=== PATIENT | male | born 1955 | race Caucasian/White ===

== ENCOUNTER 2022-05-27 09:39 | Outpatient (CLI) | payer MEDICARE, MEDICAID, SELFPAY | END 2022-05-27 09:40 | disposition home or self-care (01) | LOC: CHSIMG 09:46 | PROVIDERS: PCP Family Medicine; Visit Provider Family Medicine | DX: R09.89 Other specified symptoms and signs involving the circulatory and respiratory systems (principal); Z53.8 Procedure and treatment not carried out for other reasons | CPT/HCPCS: 99199 ==

== ENCOUNTER 2022-06-06 12:32 | Outpatient (CLI) | payer MEDICARE, SELFPAY ==
--- NOTE | ~2022-06-06 | US_ITS ---
EXAMINATION: US arterial ankle brachial ind DATE: 06/06/2022 13:26 INDICATION: Absent pedal pulses TECHNIQUE: Segmental pressures and plethysmographic and Doppler waveforms of the brachial and lower e xtremity arteries were obtained. COMPARISON: None. FINDINGS: Right and left brachial artery pressures of 155 mm Hg and 146 mm Hg, respectively, are concordant (no rmal difference <= 30 mmHg). The right ankle-brachial index (MANUELA) is 1.19 (normal >= 0.9-1.0). The right great toe-brachial index (TBI) is 0.68 (normal >= 0.65). Arterial Doppler waveforms are triphasic at the right common femoral artery and biphasic throughout the more distal arteries and right lower limb with brisk systolic upst rokes throughout. The left MANUELA is 1.21. The left TBI is 0.57. Arterial Doppler waveforms are triphasic at the left comm on femoral, superficial femoral and popliteal arteries, biphasic at the left posterior tibial artery and monophasic at the left dorsalis pedis artery with brisk systolic upstrokes throughout. IMPRESSION: 1. 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 2. No significant arterial occlusive disease to the right lower limb with normal right MANUELA and TBI. Reviewed, dictated and finalized at location B. IMPRESSION: 1. 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 2. No significant arterial occlusive disease to the right lower limb with otf l right MANUELA and TBI.
== END 2022-06-06 12:33 | disposition home or self-care (01) ==
LOC: CHSIMG 12:34
PROVIDERS: PCP Family Medicine; Visit Provider Family Medicine
DX: R09.89 Other specified symptoms and signs involving the circulatory and respiratory systems (principal)
CPT/HCPCS: 93922

== ENCOUNTER 2022-06-15 07:29 | Outpatient (CLI) | payer MEDICARE, MEDICAID, SELFPAY ==
--- NOTE | ~2022-06-15 | MR_ITS ---
EXAMINATION: MR lumbar spine wo con DATE: 06/15/2022 08:19 INDICATION: Low back pain. Spinal stenosis. TECHNIQUE: Magnetic resonance imaging (MRI) of the lumbar spine was performed without intravenous con trast. Sequences included sagittal T2-weighted FSE, sagittal T2-weighted FS FSE, sagittal T1-weighted FSE, and axial T2-weighted FSE. COMPARISON: None FINDINGS: There is 21 degrees dextroscoliosis of lumbar spine. There is mild chronic anterior wedging of T11-L1 vertebral bodies. There are Schmorl's nodes at multiple levels. There is heterogeneous fat ty replacement of the bone marrow. There is a sclerotic lesion in T12, likely a benign bone island. T here is severely decreased disc height at L1-L2, moderately decreased disc height at L2-L3 and L3-L4, and severely decreased disc height at L4-L5 with endplate remodeling. The distal spinal cord signal intensity is normal. The conus medullaris is at T12-L1. The following disc levels are specifically di scussed: L1-L2: The disc is bulging and has an annular fissure. There is mild bilateral facet joint osteoarthr itis. There is mild right and moderate left neural foraminal stenosis. There is mild central canal st enosis. L2-L3: The disc is bulging. There is moderate bilateral facet joint osteoarthritis. There is mild rig ht and moderate left neural foraminal stenosis. There is mild central canal stenosis. L3-L4: The disc is bulging and has an annular fissure. There is severe bilateral facet joint osteoart hritis. There is moderate bilateral neural foraminal stenosis. There is mild central canal stenosis. L4-L5: The disc is bulging and has an annular fissure. There is severe bilateral facet joint osteoart hritis. There is moderate right and mild left neural foraminal stenosis. There is mild central canal stenosis. L5-S1: The disc is bulging. There is severe bilateral facet joint osteoarthritis. There is mild bilat eral neural foraminal stenosis. There is no central canal stenosis. IMPRESSION: 1. Severe lumbar spondylosis. 2. Lumbar dextroscoliosis. Reviewed, dictated and finalized at location A.
== END 2022-06-15 07:30 | disposition home or self-care (01) ==
PROVIDERS: PCP Family Medicine; Visit Provider Family Medicine
DX: M48.00 Spinal stenosis, site unspecified (principal)
CPT/HCPCS: 72148

== ENCOUNTER 2022-08-21 11:10 | Outpatient (CLI) | payer MEDICARE, MEDICAID, SELFPAY ==
[2022-08-21 12:17] LABS: Prostate Specific Antigen < 0.1 ng/mL (< OR = 4.0)
== END 2022-08-21 11:11 | disposition home or self-care (01) ==
LOC: CHSLAB 11:14
PROVIDERS: PCP Family Medicine; Visit Provider Radiology Radiation Oncology
DX: C61 Malignant neoplasm of prostate (principal)
CPT/HCPCS: 36415; 84153; 87077; 87086; 87088; 87186

== ENCOUNTER 2022-09-30 14:14 | Emergency (ER) | payer MEDICARE, MEDICAID, SELFPAY ==
--- NOTE | ~2022-09-30 | CT_ITS ---
EXAMINATION: CT abdomen pelvis wo con DATE: 09/30/2022 15:34 INDICATION: Abdominal pain. Nausea. TECHNIQUE: Computed tomography (CT) of the abdomen and pelvis was performed without intravenous contr ast. Automated exposure control and iterative reconstruction technique were employed. The dose-length product was 861.38 mGy-cm. COMPARISON: None. FINDINGS: The visualized portions of the lung bases demonstrate mild atelectasis. No pleural effusion . The heart size is normal. There are coronary artery calcifications. No pericardial effusion. The li seamus is normal. There is a gallstone in the gallbladder, which is distended, likely secondary to fasti ng. The spleen, pancreas, adrenal glands, and kidneys are normal. There is no urolithiasis. There is an umbilical hernia containing fat. The bladder is distended. There are scattered diverticula in the colon. There is wall thickening of sigmoid colon with surrounding fat stranding. There are foci of fr ee intraperitoneal gas adjacent to the sigmoid colon and in the upper abdomen. There is a 17 x 1.4 x 1.6 cm perisigmoid abscess. The appendix is normal. There are no pathologically enlarged lymph nodes. There are bilateral total hip arthroplasties. There are old healed fractures of the left acetabulum and left superior and inferior pubic rami. There is lumbar dextroscoliosis and severe spondylosis. Th ere is a benign bone island in T12 vertebral body. There is moderate thoracic spondylosis. IMPRESSION: 1. Sigmoid diverticulitis with microperforation and small abscess. Reviewed, dictated and finalized at location A. RIDER
[2022-09-30 14:45] VITALS: BP 165/76; PULSE 82; RESP 16; TEMP 36.3; O2SAT 97
--- NOTE | 2022-09-30 15:21 | ED.GENADULT ---
HPI - General Adult General Chief complaint: Abdominal Pain Stated complaint: possible intestinal blockage, prostate cancer Time Seen by Provider: 09/30/22 14:48 History of Present Illness HPI narrative: The patient is a 67-year-old male with history of prostate cancer, status post radiation therapy, most recently August 01, 2022. He is currently on Lupron therapy. His other medication is Flomax. He has had multiple orthopedic procedures. In the distant past, he had a urethral rupture from trauma many years ago with an accompanying pelvic fracture. He has not had a small bowel obstruction. Last normal bowel movement was 3 days ago, Friday. the patient now presents with an episode of infraumbilical abdominal discomfort since Friday, 3 days ago, worsened in the evening on Friday evening, associated with chills and nausea and 2 episodes of emesis today, once yesterday. He did take Tylenol 1000 mg for his abdominal pain at 11:00 a.m. today. He did take Kaopectate 2 days ago and took 2 tablets of an [id number] stool softener as well around that time. This resulted in a bowel movement 2 days ago, Friday, which is the last time he had stool output. He has self treated himself with Jell-O and pudding and clear liquids. His pain is continued and so has the nausea and vomiting sensation. He comes here for further evaluation. Denies any fevers or diaphoresis or chest pain. No URI or UTI symptoms. Related Data Home Medications Medication Instructions Recorded Confirmed leuprolide (3 month) 22.5 mg (3 22.5 mg subcut [id number] 09/30/22 09/30/22 month) subcutaneous syringe tamsulosin 0.4 mg capsule 0.4 mg PO HS 09/30/22 09/30/22 Allergies Allergy/AdvReac Type Severity Reaction Status Date / Time No Known Allergies Allergy Verified 09/30/22 19:44 Review of Systems Review of Systems: All systems reviewed & are unremarkable except as noted in HPI and below Constitutional: Constitutional: Reports no additional constitutional complaints, Denies anorexia, Denies body ache(s), Reports chills, Denies excessive sweating, Denies fatigue, Denies fever(s), Denies frequent falls, Denies headache(s), Denies malaise and Denies poor appetite Eyes: Eyes: Reports no additional eye complaints, Denies blurry vision, Denies change in vision, Denies irritation, Denies itchy eyes and Denies photophobia ENT: Reports system reviewed and no additional complaints, except as documented, Reports Normal hearing present, Denies change in voice, Denies dysphagia, Denies vertigo, Denies dizziness, Denies ear discharge, Denies headache(s), Denies hearing loss, Denies hoarseness, Denies nasal congestion, Denies neck pain, Denies sinus pressure, Denies sore throat and Denies throat swelling Cardiovascular: Cardiovascular: Reports no additional cardiovascular complaints, Denies chest pain, Denies syncope, Denies rapid heart rate, Denies irregular heart rhythm, Denies leg edema, Denies dyspnea and Denies slow heart rate Respiratory: Respiratory: Reports no additional respiratory complaints, Denies cough, Denies dyspnea, Denies stridor and Denies wheezing Gastrointestinal: Gastrointestinal: Reports no additional gastrointestinal complaints, Reports abdominal pain, Denies melena, Denies hematochezia, Denies dysphagia, Denies diarrhea, Reports nausea and Reports vomiting Genitourinary: Genitourinary: Denies hematuria, Denies oliguria, Denies dysuria, Denies flank pain, Denies urinary frequency and Denies urinary urgency Musculoskeletal: Musculoskeletal: Reports no additional musculoskeletal complaints, Denies abnormal gait, Denies back pain, Denies myalgias, Denies arthralgias, Denies joint swelling, Denies limited range of motion, Denies muscle cramps, Denies muscle weakness, Denies neck pain and Denies numbness Integumentary/Breasts: Skin/Breast: Reports system reviewed and no additional complaints, except as docu, Denies breast pain, Denies change in pigmentation,
[2022-09-30] MEDS: SODIUM CHLORIDE 0.9% IV 1,000 ML 999 ML IV CONT ×2 (15:22)
[2022-09-30] MEDS: ONDANSETRON INJ 4 MG/2 ML VIAL IV PUSH (15:23)
[2022-09-30] MEDS: METOCLOPRAMIDE HCL INJ 10 MG/2 ML VIAL IV PUSH (15:23)
[2022-09-30] MEDS: MORPHINE SULFATE (*CRX) 4 MG/ML INJ IV PUSH (15:24)
[2022-09-30 15:28] LABS: Basophils Absolute Auto 0.01 K/mm3 (0.00-0.10); Basophils Percent Auto 0.1 % (0.0-1.0); Hematocrit 35.4 % (37.0-46.0); Immature Granulocyte Absolute 0.02 K/mm3 (0.00-0.00); Immature Granulocyte Percent A 0.3 % (0.0-0.0); Lymphocytes Absolute Auto 0.22 K/mm3 (1.10-4.50); Mean Corpuscular HGB Conc 33.9 g/dL (32.0-36.0); Mean Corpuscular Hemoglobin 34.3 pg (27.0-31.0); Mean Corpuscular Volume 101.1 fL (78.0-102.0); Mean Platelet Volume 8.7 fl (8.7-11.0); Monocytes Absolute Auto 0.35 K/mm3 (0.10-0.90); Monocytes Percent Auto 4.8 % (2.0-11.0); Neutrophils Absolute Auto 6.7 K/mm3 (1.7-7.2); Neutrophils Percent Auto 91.8 % (50.0-70.0); Platelet Count Result 170 K/mm3 (150-420); Red Cell Distribution Width 13.1 % (11.6-14.4); White Blood Count 7.3 K/mm3 (4.8-10.8)
[2022-09-30 15:44] LABS: Alanine Aminotransferase 14 U/L (16-63); Albumin Level 3.3 g/dL (3.4-5.0); Alkaline Phosphatase 47 U/L (46-116); Amylase 24 U/L (25-115); Anion Gap 10 mmol/L (8-16); Aspartate Amino Transferase < 10 U/L (15-37); Blood Urea Nitrogen 10 mg/dL (7-18); Calcium 8.8 mg/dL (8.5-10.1); Carbon Dioxide 25 mmol/L (21-32); Chloride 101 mmol/L (98-108); Estimated CRCL calculation 87 ml/min; Estimated Glomerular Filt Rate > 60; Glucose 129 mg/dL (70-99); Lipase 12 U/L (16-77); Magnesium 1.7 mg/dL (1.8-2.4); Osmolality Calculated 283 mOsm/kg (285-295); Potassium 3.4 mmol/L (3.5-5.1); Sodium 136 mmol/L (136-145); Total Protein 7.1 g/dL (6.4-8.2)
[2022-09-30 15:46] LABS: Lactic Acid Reflex 0.9 mmol/L (0.4-2.0)
--- NOTE | 2022-09-30 16:50 | PC.NURSE ---
DELAY IN ABT ADMINISTRATION, AWAITING BLOOD CULTURES TO BE OBTAINED.
[2022-09-30] MEDS: metroNIDAZOLE 500 MG/ISO 100ML 500 MG/100 ML BAG 100 MG IVPB (17:12)
--- NOTE | 2022-09-30 17:13 | PC.NURSE ---
PT IS AWAITING ROOM ASSIGNMENT FROM [place] AT THIS TIME. WILL CONTINUE TO MONITOR. SON AT BEDSIDE. PT AND SON UPDATED ON STATUS. URINAL PROVIDED REQUESTED.
--- NOTE | 2022-09-30 17:28 | PC.NURSE ---
PT TO BE ADMITTED TO ROOM 316-2 AT [facility], ATTEMPTED TO CALL REPORT TO CHIQUIS WHITE, SHE IS UNAVAILABLE AT THIS TIME AND IS TO RETURN CALL. WILL CONTINUE TO MONITOR.
[2022-09-30 17:29] LABS: SARS-CoV-2 RNA PCR Negative (Negative)
[2022-09-30 17:40] VITALS: BP 147/84; PULSE 80; RESP 18; TEMP 36.8; O2SAT 98
[2022-09-30 18:10] LABS: Add Urine Microscopic? YES; Appearance Urine Clear (Clear); Bilirubin Urine Negative (Negative); Blood Urine 1+ (Negative); Color Urine Light Yellow (Yellow); Glucose Urine UA Negative (Negative); Ketones Urine Negative (Negative); Leukocyte Esterase Ur 3+ LEU/UL (Negative); Nitrate Urine Positive (Negative); Protein Urine Negative (Negative); pH Urine 6.5 (5.0-8.0)
[2022-09-30] MEDS: SODIUM CHLORIDE 0.9% IV 1,000 ML 150 ML IV CONT (18:26)
[2022-09-30 18:50] LABS: Bacteria Urine 4+ /hpf; Squamous Epithelial Cell Urine None seen /hpf (Few); WBC Urine >75 /hpf (0-3)
--- NOTE | 2022-10-05 10:34 | PC.NURSE ---
pt final urine culture obtained. pt was transferred to [facility]. called to notify. spoke with betsy simon. states pt discharged on 10.04.22. asked if pt discharged with antibiotic. states will call back.
--- NOTE | 2022-10-05 10:39 | PC.NURSE ---
pt called , states was discharged with rx for amoxicillin. will check with erp to make sure amoxil is appropriate.
--- NOTE | 2022-10-05 10:58 | PC.NURSE ---
pt called dr trimble concerned about urine results. call from dr trimble, he is aware of culture results and abt is sufficient that was ordered at discharge.
--- NOTE | 2022-10-05 11:00 | PC.NURSE ---
pt notified to continue current abt. voiced understanding
--- NOTE | 2022-10-06 13:50 | PC.NURSE ---
final blood cultures x2 reviewed. no growth after 5 days . no change in pt plan of care
== END 2022-09-30 18:38 | disposition short-term general hospital (02) ==
PROVIDERS: Emergency Provider Emergency Medicine; PCP Family Medicine
DX: K57.20 Diverticulitis of large intestine with perforation and abscess without bleeding (principal); Z85.46 Personal history of malignant neoplasm of prostate; Z20.822 Contact with and (suspected) exposure to COVID-19
CPT/HCPCS: 36415; 74176; 80053; 81001; 82150; 83605; 83690; 83735; 85025; 87040; 87077; 87086; 87088; 87186; 96361; 96365; 96375; 99285; J1956; J2270; J2405; J2765; J7030; U0003; U0005

== ENCOUNTER 2022-09-30 20:12 | Inpatient (IN) | payer MEDICARE, MEDICAID, SELFPAY ==
--- NOTE | 2022-09-30 19:22 | PC.NURSE ---
Patient arrived on 3 Med-Surg on 19:10 on 09/30/2022
[2022-09-30 20:07] VITALS: BMI 27.3
--- NOTE | 2022-09-30 20:12 | PM.IMHP ---
H&P: HPI History of Present Illness Date/Time: 09/30/22 20:12 Chief Complaint: Abdominal pain Narrative: This is a 67-year-old male patient has a history of prostate cancer. The patient is on Lupron every 3 months. He is also on Flomax otherwise he has no previous history other than a urethral rupture from trauma many years ago. He did have some urinary retention which is now resolved. His last bowel movement was approximately 3 days ago on Friday. The patient stated that he is been having abdominal pain with nausea and 2 episodes of emesis today and once yesterday. The patient did take some Tylenol for the discomfort today. He also took Kaopectate. The patient has not had a bowel movement in 2 days. The patient has been eating and drinking very little he has been eating Jell-O 1 putting and clear liquids. The patient went to [facility] to be evaluated. His H&H is 12.0 in 35.4. The patient is positive for urinary tract infection. He is negative for COVID. Abdominal pelvis CT was read as sigmoid diverticulitis with microperforation and small abscess. Surgery has been consulted. The patient was given Levaquin and IV fluids in the emergency room at [place]. Perisigmoid abscess measuring 1.7 x 1.4 x 1.6. The patient is being admitted to inpatient status on the date of service of 09/30/2022. Review of Systems Review of Systems: See HPI All systems reviewed & are unremarkable except as noted in HPI and below Constitutional: Constitutional: Reports as per HPI and Reports no additional constitutional complaints Eyes: Eyes: Reports as per HPI and Reports no additional eye complaints ENT: Reports system reviewed and no additional complaints, except as documented and Reports Normal hearing present Cardiovascular: Cardiovascular: Reports no additional cardiovascular complaints Respiratory: Respiratory: Reports no additional respiratory complaints and Reports no additional respiratory complaints Gastrointestinal: Gastrointestinal: Reports as per HPI and Reports no additional gastrointestinal complaints Musculoskeletal: Musculoskeletal: Reports no additional musculoskeletal complaints Integumentary/Breasts: Skin/Breast: Reports system reviewed and no additional complaints, except as docu and Reports as per HPI Neurologic: Reports system reviewed and no additional complaints, except as documented, Reports as per HPI and Reports Normal hearing present Psychiatric: Psychiatric: Reports no additional psychiatric complaints and Reports as per HPI Endocrine: Endocrine: Reports no additional endocrine complaints Hematologic/Lymphatic: Hematologic/Lymphatic: Reports no additional hematologic/lymphatic complaints Allergic/Immunologic: Allergic/Immunologic: Reports no additional allergic/immunologic complaints [facility] Past Medical History Medical History (Updated 09/30/22 @ 20:24 by Michaela Lindsay NP) BPH (benign prostatic hyperplasia) Diverticulosis Fractured pelvis Inguinal hernia Osteoarthritis Prostate cancer Scoliosis Urethral stricture Surgical History Surgical History (Updated 09/30/22 @ 20:24 by Michaela Lindsay NP) H/O colonoscopy H/O prostate biopsy H/O: vasectomy History of hip replacement Bilateral S/P cystourethroscopy with dilation of urethral stricture Social History Social History (Updated 09/30/22 @ 20:25 by Michaela Lindsay NP) Social History: He is and has 3 children. He lives alone. 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 He does smoke some marijuana now.. He does not smoke cigarettes. Code status full code Smoking status: Never smoker Meds Home Medications and Allergies Home Medications Medication Instructions Recorded Confirmed Type leuprolide (3 month) 22.5 mg (3 22.5 mg subcut [id number] 09/30/22 09/30/22 History month) subcutaneous syringe tamsulosin 0.4 mg capsule 0.4 mg PO HS 09/30/22 09/30/22 History Allergies Allergy/AdvReac Type Severit
[2022-09-30] MEDS: DEXTROSE 5%/0.45% SOD CHL 1,000 ML 100 ML IV CONT (21:13)
[2022-09-30] MEDS: TAMSULOSIN HCL 0.4 MG CAPSULE PO (21:14)
[2022-09-30] MEDS: HYDROmorphone HCL INJ (*CRX) 1 MG/ML SYR IV PUSH (21:19)
[2022-09-30] MEDS: PIPERACILLIN/TAZOBACTAM SOD 4.5 GM in SODIUM CHLORIDE 0.9% IV 100 ML 200 ML IVPB (22:14)
[2022-10-01] VITALS (7 sets, daily range): BP systolic 105–136; BP diastolic 55–78; PULSE 73–87; RESP 14–18; TEMP 36.2–37.2; O2SAT 95–99
[2022-10-01 01:07] LABS: Appearance Urine Slightly Cloudy (Clear); Bilirubin Urine 1+ (Negative); Blood Urine 1+ (Negative); Color Urine Yellow (Yellow); Glucose Urine UA Negative (Negative); Ketones Urine Trace mg/dL (Negative); Leukocyte Esterase Ur 1+ LEU/UL (NEGATIVE); Nitrate Urine Positive (Negative); Protein Urine 2+ mg/dL (Negative); Specific Grav Ur >= 1.030 (1.001-1.035)
[2022-10-01 01:26] LABS: Bacteria Urine 1+ /hpf; Mucus Urine Moderate /lpf; RBC Urine 51-75 /hpf (0-2); WBC Urine >75 /hpf (0-3)
[2022-10-01] MEDS: PIPERACILLIN/TAZOBACTAM SOD 4.5 GM in SODIUM CHLORIDE 0.9% IV 100 ML 200 ML IVPB ×2 (02:03→08:41)
[2022-10-01 02:21] LABS: Add Urine Microscopic? YES
[2022-10-01] MEDS: HYDROmorphone HCL INJ (*CRX) 1 MG/ML SYR IV PUSH ×2 (05:10→09:49)
[2022-10-01 06:49] LABS: Basophils Percent Auto 0.2 % (0.2-1.2); Eosinophils Percent Auto 0.2 % (0-4.4); Hematocrit 30.2 % (42.0-52.0); Immature Granulocyte Absolute 0.03 K/mm3 (0.00-0.031); Immature Granulocyte Percent A 0.5 % (0-0.5); Lymphocytes Absolute Auto 0.32 K/mm3 (0.9-3.2); Lymphocytes Percent Auto 5.7 % (18.3-44.2); Mean Corpuscular HGB Conc 33.1 g/dl (32-36); Mean Corpuscular Hemoglobin 33.7 pg (26-34); Mean Corpuscular Volume 101.7 fl (80-100); Mean Platelet Volume 8.7 fl (7.4-10.4); Monocytes Absolute Auto 0.3 K/mm3 (0.1-0.6); Monocytes Percent Auto 5.1 % (2.6-8.5); Neutrophils Percent Auto 88.3 % (45.5-73.1); Platelet Count Result 122 k/mm3 (150-375); Red Blood Count 2.97 M/mm3 (4.6-6.20); Red Cell Distribution Width 13.2 % (11.5-14.5); White Blood Count 5.7 K/mm3 (4.5-10.0)
[2022-10-01 07:05] LABS: Lactic Acid Reflex 0.6 mmol/L (0.7-2.0)
[2022-10-01 07:08] LABS: Alanine Aminotransferase 13 U/L (6-50); Albumin Level 3.3 g/dL (3.5-5.1); Alkaline Phosphatase 41 U/L (38-126); Anion Gap 3 mmol/L (8-16); Aspartate Amino Transferase 14 U/L (17-59); Bilirubin,Total 1.3 mg/dL (0.2-1.3); Blood Urea Nitrogen 10 mg/dL (9-20); Calcium 8.4 mg/dL (8.4-10.2); Carbon Dioxide 26 mmol/L (22-30); Chloride 101 mmol/L (98-107); Estimated CRCL calculation 99 ml/min; Estimated Glomerular Filt Rate > 60; Glucose 111 mg/dL (65-110); Magnesium 1.6 mg/dL (1.6-2.3); Potassium 3.4 mmol/L (3.4-5.0); Sodium 130 mmol/L (137-145)
[2022-10-01] MEDS: DEXTROSE 5%/0.45% SOD CHL 1,000 ML 100 ML IV CONT (08:36)
[2022-10-01] MEDS: ONDANSETRON INJ 4 MG/2 ML VIAL IV PUSH (09:54)
--- NOTE | 2022-10-01 10:58 | PM.CNGS ---
Assessment and Plan Assessment and plan (1) Diverticulitis of intestine with perforation and abscess: Code(s): K57.80 - Diverticulitis of intestine, part unspecified, with perforation and abscess without bleeding Status: Acute Assessment and Plan: CT reviewed and there is evidence of sigmoid diverticulitis with microperforation and a small perisigmoid abscess. This is his first episode of diverticulitis. His abdominal pain has improved some since admission. Will start him on clear liquids. We would recommend to continue with broad-spectrum IV antibiotics, which he is currently on Zosyn, and IV analgesics as needed for pain. Repeat labs tomorrow and continue to follow with serial abdominal exams. (2) Prostate cancer: Code(s): C61 - Malignant neoplasm of prostate Status: Acute Assessment and Plan: Completed radiation therapy in July and is currently on Lupron therapy. (3) Umbilical hernia: Code(s): K42.9 - Umbilical hernia without obstruction or gangrene Status: Acute Assessment and Plan: Small fat-containing umbilical hernia appreciated on exam and imaging. Not his acute issues and can be discussed further as an outpatient. No indication for urgent surgical intervention at this time. Plan I have discussed the patient's case and plan of care with Dr. Suero. Thank you for allowing us to see the patient in consultation and we will continue to follow along with you. History of Present Illness Consult details Consult date: 10/01/22 Reason for consult: other (Sigmoid diverticulitis with microperforation and abscess) Requesting physician: Michaela Lindsay NP Narrative: This is a 67-year-old man with a history of prostate cancer who was treated with radiation therapy completed on 08/01/2022 and currently on Lupron injections. He additionally has a urethral rupture from trauma many years ago with an accompanying pelvic fracture, which reportedly excluded him from prostatectomy. He reports an onset of suprapubic and left lower quadrant abdominal pain for 5 days. He first noticed the pain Jar[place] morning around 11:00 a.m.. He had associated chills and nausea. His pain progressively worsened and began radiating across his lower abdomen. He tried taking Tylenol and Kaopectate? at home without relief. He reports having small liquid bowel movements for the past 2 months and recently dealt with urinary retention a few weeks ago which has since resolved. Due to the nausea, he has primarily been on a clear liquid diet at home for the past few days. He did have a few episodes of vomiting. Due to his persistent pain, he presented to the ER in [place] for evaluation. CT scan of the abdomen and pelvis showed sigmoid diverticulitis with microperforation and small 1.7 x 1.4 x 1.6 cm abscess. Urinalysis suggests a urinary tract infection. Labs show a normal white blood cell count. He was directly admitted to [facility] for the sigmoid diverticulitis with perforation and abscess. Our service has been consulted for the same. He is now seen on the medical floor. He reports his abdominal pain has improved some, but he is still very tender. Denies any nausea at this time. No vomiting since admission. He is passing flatus, but has not had a bowel movement in 3 days. He is currently NPO with IV fluids. He was started on IV Zosyn. He has been receiving IV Dilaudid for his abdominal pain, which reportedly has been helping keep it controlled. He denies any previous episodes of diverticulitis. He also reports having a colonoscopy in the past, which he cannot recall the details of or when this occurred. Review of Systems Review of Systems: All systems reviewed & are unremarkable except as noted in HPI and below Constitutional: Constitutional: Reports no additional constitutional complaints, Reports chills, Denies fatigue, Denies fever(s), Reports poor appetite and Denies weakness Eyes: Eyes: Repor
[2022-10-01] MEDS: KCL 20MEQ/0.9% SOD CHL 1,000 ML 75 ML IV CONT (11:20)
--- NOTE | 2022-10-01 13:26 | PM.IMPN ---
Progress Note: A&P Assessment and Plan (1) Diverticulitis of intestine with perforation and abscess: Code(s): K57.80 - Diverticulitis of intestine, part unspecified, with perforation and abscess without bleeding Status: Acute Plan 67 years old M with PMH of prostate cancer presented with abdominal pain,Abdominal pelvis CT was read as sigmoid diverticulitis with microperforation and small abscess.? Surgery was consulted.? The patient was given Levaquin and IV fluids in the emergency room at [place].? Perisigmoid abscess measuring 1.7 x 1.4 x 1.6.?. 1)Acute Abdominal pain: 2/2 acute diverticulitis with likely micro perforation/abscess IV fluid with potassium Pain control Appreciate Surgery help c/w Zosyn 2)UTI: c/w Zosyn Await urine culture 3)DVT ppx:hep SQ 4)Code:Full 5)Dispo;pending improvement Time Spent With Patient Time with patient: 15 - 25 minutes Subjective Date/time seen: 10/01/22 13:26 Interval history: c/o Abdominal Pain Review of Systems Review of Systems: All systems reviewed & are unremarkable except as noted in HPI and below Constitutional: Constitutional: Reports no additional constitutional complaints Eyes: Eyes: Reports no additional eye complaints ENT: Reports system reviewed and no additional complaints, except as documented Cardiovascular: Cardiovascular: Reports no additional cardiovascular complaints Respiratory: Respiratory: Reports no additional respiratory complaints Gastrointestinal: Gastrointestinal: Reports abdominal pain Musculoskeletal: Musculoskeletal: Reports no additional musculoskeletal complaints Neurologic: Reports system reviewed and no additional complaints, except as documented Exam Const: General: no acute distress HENMT: Mouth: Yes moist mucous membranes Eyes: Sclera: sclerae normal Pupils: Equal, round and reactive pupils present Neck: Neck: supple Resp: Effort & Inspection: normal respiratory effort Cardio: Rate: regular rate Rhythm: regular rhythm GI: GI Palp: Yes Soft to palpation and Yes Tenderness to palpation present (GI) Other: tenderness in umbilical/suprapubic and LLQ present Skin: General skin exam: normal color Neuro: Speech: normal speech Extrem: General: normal to inspection Objective Data Vital Signs Vital Signs: Vital Signs - 24 hr 09/30/22 20:15 10/01/22 00:00 10/01/22 00:00 Temperature 98.6 F Pulse Rate 86 81 Respiratory Rate 14 Blood Pressure 136/75 Pulse Oximetry 99 Oxygen Delivery Room Air 10/01/22 04:00 10/01/22 04:00 10/01/22 08:00 Temperature 98.9 F 98 F Pulse Rate 87 82 73 Respiratory Rate 14 16 Blood Pressure 116/68 123/78 Pulse Oximetry 97 98 Oxygen Delivery 10/01/22 08:00 10/01/22 11:43 10/01/22 12:00 Temperature 98.7 F Pulse Rate 76 74 86 Respiratory Rate 16 Blood Pressure 119/72 Pulse Oximetry 99 Oxygen Delivery Intake/Output Intake/Output: Intake & Output 09/28/22 09/29/22 09/30/22 10/01/22 23:59 23:59 23:59 23:59 Intake Total 100 1680 Balance 100 1680 Meds/Results Medications: Active Medications Generic Name Dose Route Start Last Admin Trade Name Freq PRN Reason Stop Dose Admin Hydromorphone HCl 1 mg 09/30/22 20:16 10/01/22 09:49 Hydromorphone Hcl Inj (*Crx) 1 Mg/Ml Syr IV PUSH 1 mg Q3H PRN Administration Pain Rated 7-10 Piperacillin Sod/Tazobactam 100 mls @ 200 mls/hr 09/30/22 21:00 10/01/22 09:49 Sod 4.5 gm/ Sodium Chloride IVPB Infused Q6H CHERRI Infusion Acetaminophen 1,000 mg in 100 mls @ 400 mls/hr 09/30/22 20:30 Ofirmev 1,000 Mg Ivpb IVPB 10/01/22 20:29 Q6H PRN Pain Rated 4-6 Potassium Chloride/Sodium Chloride 1,000 mls @ 75 mls/hr 10/01/22 09:00 10/01/22 11:20 Kcl 20 Meq/Ns IV CONT 75 mls/hr .[id number] CHERRI Administration Ondansetron HCl 4 mg 09/30/22 20:12 10/01/22 09:54 Ondansetron Inj 4 Mg/2 Ml Vial IV PUSH 4 mg Q6H PRN Administr
[2022-10-01] MEDS: PIPERACILLIN/TAZOBACTAM SOD 4.5 GM in SODIUM CHLORIDE 0.9% IV 100 ML IVPB (15:46)
[2022-10-01] MEDS: HEPARIN SODIUM 5,000 UNITS/ML VIAL 5000 UNITS SUB-Q (20:30)
[2022-10-01] MEDS: MELATONIN 5 MG TABLET PO (20:30)
[2022-10-01] MEDS: TAMSULOSIN HCL 0.4 MG CAPSULE PO (20:31)
[2022-10-01] MEDS: PIPERACILLIN/TAZOBACTAM SOD 4.5 GM in SODIUM CHLORIDE 0.9% IV 100 ML 125 ML IVPB (20:31)
[2022-10-02] MEDS: PIPERACILLIN/TAZOBACTAM SOD 4.5 GM in SODIUM CHLORIDE 0.9% IV 100 ML 125 ML IVPB ×2 (02:02→20:16)
[2022-10-02] MEDS: KCL 20MEQ/0.9% SOD CHL 1,000 ML 75 ML IV CONT ×2 (02:06→18:29)
[2022-10-02] MEDS: HYDROmorphone HCL INJ (*CRX) 1 MG/ML SYR IV PUSH ×2 (03:56→15:04)
[2022-10-02 04:00] VITALS: BP 113/70; PULSE 71; RESP 18; TEMP 36.6; O2SAT 96
[2022-10-02 06:11] LABS: Hematocrit 31.5 % (42.0-52.0); Hemoglobin 10.6 g/dL (14.0-18.0); Mean Corpuscular HGB Conc 33.7 g/dl (32-36); Mean Corpuscular Hemoglobin 34.8 pg (26-34); Mean Corpuscular Volume 103.3 fl (80-100); Mean Platelet Volume 9.1 fl (7.4-10.4); Platelet Count Result 151 k/mm3 (150-375); Red Blood Count 3.05 M/mm3 (4.6-6.20); Red Cell Distribution Width 13.2 % (11.5-14.5)
[2022-10-02 06:22] LABS: Anion Gap 5 mmol/L (8-16); Blood Urea Nitrogen 7 mg/dL (9-20); Calcium 8.4 mg/dL (8.4-10.2); Carbon Dioxide 28 mmol/L (22-30); Chloride 103 mmol/L (98-107); Estimated CRCL calculation 99 ml/min; Estimated Glomerular Filt Rate > 60; Glucose 126 mg/dL (65-110); Potassium 3.4 mmol/L (3.4-5.0); Sodium 136 mmol/L (137-145)
[2022-10-02] MEDS: PIPERACILLIN/TAZOBACTAM SOD 4.5 GM in SODIUM CHLORIDE 0.9% IV 100 ML IVPB ×2 (08:41→15:56)
[2022-10-02] MEDS: HEPARIN SODIUM 5,000 UNITS/ML VIAL 5000 UNITS SUB-Q ×2 (08:41→20:16)
[2022-10-02 11:11] VITALS: BP 134/74; PULSE 72; RESP 16; TEMP 36.6; O2SAT 100
--- NOTE | 2022-10-02 12:11 | PM.PNGS ---
Progress Note: A&P Assessment and Plan (1) Diverticulitis of intestine with perforation and abscess: Code(s): K57.80 - Diverticulitis of intestine, part unspecified, with perforation and abscess without bleeding Status: Acute Assessment and Plan: doing well c conservative mgmt, cont IV abx, low fiber diet today (2) Umbilical hernia: Code(s): K42.9 - Umbilical hernia without obstruction or gangrene Status: Acute Assessment and Plan: cont observation, light activity restriction, plan for interval repair in the future Subjective Subjective Date/Time Seen: 10/02/22 12:11 feels better today, overall pain improved, some periumbilical tenderness to palpation Review of Systems Review of Systems: All systems reviewed & are unremarkable except as noted in HPI and below Exam Const: General: cooperative, comfortable and no acute distress Resp: Auscultation: clear to auscultation bilaterally Cardio: Rate: regular rate Rhythm: regular rhythm GI: Inspection: normal to inspection and distended GI Palp: Yes abdominal tenderness, Yes Soft to palpation, Yes Tenderness to palpation present (GI), No Guarding due to palpation present (GI), No Rigid due to palpation and Yes Hernia present Other: umbilical hernia - tender, no overlying skin changes Objective Data Vital Signs Vital Signs: Vital Signs - 24 hr 10/01/22 15:59 10/01/22 20:00 10/01/22 20:31 Temperature 36.2 C L 36.6 C Pulse Rate 77 83 Respiratory Rate 16 18 Blood Pressure 105/55 L 123/60 Pulse Oximetry 95 99 Oxygen Delivery Room Air 10/02/22 04:00 10/02/22 11:11 Temperature 36.6 C 36.6 C Pulse Rate 71 72 Respiratory Rate 18 16 Blood Pressure 113/70 134/74 Pulse Oximetry 96 100 Oxygen Delivery Intake/Output Intake/Output: Intake & Output 09/29/22 09/30/22 10/01/22 10/02/22 23:59 23:59 23:59 23:59 Intake Total 100 2910 2250 Output Total 900 725 Balance 100 2009 152 Meds/Results Medications: Active Medications Generic Name Dose Route Start Last Admin Trade Name Freq PRN Reason Stop Dose Admin Heparin Sodium (Porcine) 5,000 units 10/01/22 21:00 10/02/22 08:41 Heparin Sodium 5,000 Units/Ml Vial SUB-Q 5,000 units Q12HR CHERRI Administration Hydromorphone HCl 1 mg 09/30/22 20:16 10/02/22 03:56 Hydromorphone Hcl Inj (*Crx) 1 Mg/Ml Syr IV PUSH 1 mg Q3H PRN Administration Pain Rated 7-10 Piperacillin Sod/Tazobactam 100 mls @ 200 mls/hr 09/30/22 21:00 10/02/22 10:32 Sod 4.5 gm/ Sodium Chloride IVPB Infused Q6H CHERRI Infusion Potassium Chloride/Sodium Chloride 1,000 mls @ 75 mls/hr 10/01/22 09:00 10/02/22 02:06 Kcl 20 Meq/Ns IV CONT 75 mls/hr .[id number] CHERRI Administration Melatonin 5 mg 10/01/22 20:06 10/01/22 20:30 Melatonin 5 Mg Tablet PO 5 mg HS PRN Administration Insomnia Ondansetron HCl 4 mg 09/30/22 20:12 10/01/22 09:54 Ondansetron Inj 4 Mg/2 Ml Vial IV PUSH 4 mg Q6H PRN Administration Nausea And Vomiting Tamsulosin HCl 0.4 mg 09/30/22 21:00 10/01/22 20:31 Tamsulosin Hcl 0.4 Mg Capsule PO 0.4 mg HS CHERRI Administration Labs Labs: Laboratory Results - last 24 hr 10/02/22 10/02/22 05:48 05:48 WBC 5.0 RBC 3.05 L Hgb 10.6 L Hct 31.5 L MCV 103.3 H MCH 34.8 H MCHC 33.7 RDW 13.2 Plt Count 151 MPV 9.1 Sodium 136 L Potassium 3.4 Chloride 103 Carbon Dioxide 28 Anion Gap 5 L BUN 7 L Creatinine 0.70 Estim Creat Clear Calc 99 Estimated GFR > 60 Glucose 126 H Calcium 8.4
[2022-10-02 12:46] VITALS: BMI 27.3
[2022-10-02 14:51] VITALS: BP 131/65; PULSE 73; RESP 18; TEMP 36.9; O2SAT 98
--- NOTE | 2022-10-02 15:26 | PM.IMPN ---
Progress Note: A&P Assessment and Plan (1) Diverticulitis of intestine with perforation and abscess: Code(s): K57.80 - Diverticulitis of intestine, part unspecified, with perforation and abscess without bleeding Status: Acute Plan 67 years old M with PMH of prostate cancer presented with abdominal pain,Abdominal pelvis CT was read as sigmoid diverticulitis with microperforation and small abscess.? Surgery was consulted.? The patient was given Levaquin and IV fluids in the emergency room at [place].? Perisigmoid abscess measuring 1.7 x 1.4 x 1.6.?. # Acute Abdominal pain: 2/2 acute diverticulitis with likely micro perforation/abscess IV fluid with potassium Pain control Appreciate Surgery help c/w Zosyn Continue serial abdominal exam little lumpy this felt on left lower quadrant today. May need re scan at some point. # UTI: c/w Zosyn Await urine culture # DVT ppx:hep SQ # Code:Full # history of prostate cancer status post radiation most recently August 01, 2022 currently on Lupron therapy. 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 Feeling better. No nausea vomiting. Tolerating clear liquids. Lower abdomen is still sore Review of Systems Review of Systems: All systems reviewed & are unremarkable except as noted in HPI and below Exam Narrative: GENERAL: The patient is well developed, not in acute distress HEENT: Nonicteric sclerae, PERRLA, EOMI. Oropharynx clear. Moist mucous membranes. Conjunctivae appear well perfused. CHEST: Chest wall is nontender. HEART: Regular rate and rhythm without murmur, rubs, or gallops LUNGS: Clear to auscultation bilaterally. no respiratory distress ABDOMEN: Soft, positive bowel sounds, tender left lower quadrant, no organomegaly. SKIN: No rash, no excessive bruising, petechiae, or purpura. NEUROLOGIC: Cranial nerves II-XII intact, alert and oriented x 3, no gross motor deficits EXTREMITIES: no edema, cyanosis or clubbing Objective Data Vital Signs Vital Signs: Vital Signs - 24 hr 10/01/22 15:59 10/01/22 20:00 10/01/22 20:31 Temperature 97.1 F L 97.8 F Pulse Rate 77 83 Respiratory Rate 16 18 Blood Pressure 105/55 L 123/60 Pulse Oximetry 95 99 Oxygen Delivery Room Air 10/02/22 04:00 10/02/22 11:11 10/02/22 14:51 Temperature 97.8 F 97.9 F 98.4 F Pulse Rate 71 72 73 Respiratory Rate 18 16 18 Blood Pressure 113/70 134/74 131/65 Pulse Oximetry 96 100 98 Oxygen Delivery Intake/Output Intake/Output: Intake & Output 09/29/22 09/30/22 10/01/22 10/02/22 23:59 23:59 23:59 23:59 Intake Total 100 2910 2250 Output Total 900 725 Balance 100 2009 152 Meds/Results Medications: Active Medications Generic Name Dose Route Start Last Admin Trade Name Freq PRN Reason Stop Dose Admin Heparin Sodium (Porcine) 5,000 units 10/01/22 21:00 10/02/22 08:41 Heparin Sodium 5,000 Units/Ml Vial SUB-Q 5,000 units Q12HR CHERRI Administration Hydromorphone HCl 1 mg 09/30/22 20:16 10/02/22 15:04 Hydromorphone Hcl Inj (*Crx) 1 Mg/Ml Syr IV PUSH 1 mg Q3H PRN Administration Pain Rated 7-10 Piperacillin Sod/Tazobactam 100 mls @ 200 mls/hr 09/30/22 21:00 10/02/22 10:32 Sod 4.5 gm/ Sodium Chloride IVPB Infused Q6H CHERRI Infusion Potassium Chloride/Sodium Chloride 1,000 mls @ 75 mls/hr 10/01/22 09:00 10/02/22 02:06 Kcl 20 Meq/Ns IV CONT 75 mls/hr .[id number] CHERRI Administration Melatonin 5 mg 10/01/22 20:06 10/01/22 20:30 Melatonin 5 Mg Tablet PO 5 mg HS PRN Administration Insomnia Ondansetron HCl 4 mg 09/30/22 20:12 10/01/22 09:54 Ondansetron Inj 4 Mg/2 Ml Vial IV PUSH 4 mg Q6H PRN Administration Nausea And Vomiting Tamsulosin HCl 0.4 mg 09/30/22 21:00 10/01/22 20:31 Tamsulosin Hcl 0.4 Mg Capsule PO 0.4 mg HS CHERRI
[2022-10-02 16:30] VITALS: BP 136/79; PULSE 68; RESP 18; TEMP 36.9; O2SAT 97
[2022-10-02] MEDS: TAMSULOSIN HCL 0.4 MG CAPSULE PO (18:29)
[2022-10-02 19:46] VITALS: BP 122/83; PULSE 74; RESP 17; TEMP 36.6; O2SAT 98
[2022-10-02] MEDS: MELATONIN 5 MG TABLET PO (20:16)
[2022-10-02 23:34] VITALS: BP 112/79; PULSE 86; RESP 18; TEMP 36.9; O2SAT 95
[2022-10-03] MEDS: ACETAMINOPHEN 500 MG TABLET 1000 MG PO (01:19)
[2022-10-03] MEDS: PIPERACILLIN/TAZOBACTAM SOD 4.5 GM in SODIUM CHLORIDE 0.9% IV 100 ML 125 ML IVPB ×2 (03:10→08:57)
[2022-10-03 04:00] VITALS: BP 107/64; PULSE 68; RESP 18; TEMP 36.6; O2SAT 99
[2022-10-03 06:04] LABS: Basophils Percent Auto 0.3 % (0.2-1.2); Eosinophils Absolute Auto 0.1 K/mm3 (0-0.3); Eosinophils Percent Auto 1.3 % (0-4.4); Hematocrit 28.8 % (42.0-52.0); Hemoglobin 9.6 g/dL (14.0-18.0); Immature Granulocyte Absolute 0.01 K/mm3 (0.00-0.031); Immature Granulocyte Percent A 0.3 % (0-0.5); Lymphocytes Absolute Auto 0.26 K/mm3 (0.9-3.2); Lymphocytes Percent Auto 6.7 % (18.3-44.2); Mean Corpuscular HGB Conc 33.3 g/dl (32-36); Mean Corpuscular Hemoglobin 34.4 pg (26-34); Mean Corpuscular Volume 103.2 fl (80-100); Mean Platelet Volume 9.3 fl (7.4-10.4); Monocytes Absolute Auto 0.3 K/mm3 (0.1-0.6); Monocytes Percent Auto 8.7 % (2.6-8.5); Neutrophils Absolute Auto 3.2 K/mm3 (1.3-6.7); Neutrophils Percent Auto 82.7 % (45.5-73.1); Platelet Count Result 154 k/mm3 (150-375); Red Blood Count 2.79 M/mm3 (4.6-6.20); White Blood Count 3.9 K/mm3 (4.5-10.0)
[2022-10-03 06:31] LABS: Alanine Aminotransferase 17 U/L (6-50); Albumin Level 3.2 g/dL (3.5-5.1); Alkaline Phosphatase 61 U/L (38-126); Anion Gap 5 mmol/L (8-16); Aspartate Amino Transferase 22 U/L (17-59); Bilirubin,Total 0.9 mg/dL (0.2-1.3); Blood Urea Nitrogen 5 mg/dL (9-20); Calcium 8.5 mg/dL (8.4-10.2); Carbon Dioxide 26 mmol/L (22-30); Chloride 106 mmol/L (98-107); Estimated CRCL calculation 99 ml/min; Estimated Glomerular Filt Rate > 60; Glucose 115 mg/dL (65-110); Magnesium 1.8 mg/dL (1.6-2.3); Potassium 3.5 mmol/L (3.4-5.0); Sodium 137 mmol/L (137-145)
[2022-10-03] MEDS: HEPARIN SODIUM 5,000 UNITS/ML VIAL 5000 UNITS SUB-Q ×2 (08:57→21:45)
[2022-10-03 10:00] VITALS: BP 155/92; PULSE 72; RESP 16; TEMP 36.4; O2SAT 99
--- NOTE | 2022-10-03 11:11 | PM.PNGS ---
Progress Note: A&P Assessment and Plan (1) Diverticulitis of intestine with perforation and abscess: Code(s): K57.80 - Diverticulitis of intestine, part unspecified, with perforation and abscess without bleeding Status: Acute Assessment and Plan: Advanced to a low fiber diet and tolerating well. Clinically improving but still complaining of some abdominal pain and diarrhea. WBC normal. Continue IV Zosyn and analgesics as needed. Hopefully he can be discharged home on oral antibiotics in the next 1-2 days if he continues to improve. (2) Umbilical hernia: Code(s): K42.9 - Umbilical hernia without obstruction or gangrene Status: Acute Assessment and Plan: cont observation, light activity restriction, plan for interval repair in the future Plan I have discussed the patient's case and plan of care with Dr. Suero. Subjective Subjective Date/Time Seen: 10/03/22 11:11 Patient reports: no new complaints, pain is less, tolerating a regular diet, flatus, diarrhea and afebrile Interval history: Patient reports some very mild improvement in his abdominal pain compared to yesterday. Denies any nausea or vomiting. Tolerating a low fiber diet this morning and taking it slow. He is having frequent watery stools, reporting at least 7 overnight. This seems to have slowed down this morning. No other complaints at this time. Review of Systems Review of Systems: ROS unchanged Exam Const: General: comfortable, no acute distress and awake Orientation/consciousness: patient oriented x3 GI: Inspection: non-distended GI Palp: Yes Soft to palpation, Yes Tenderness to palpation present (GI) (LLQ, Suprapubic, RLQ), No Guarding due to palpation present (GI), Yes Hernia present (umbilical hernia TTP, no overlying skin changes) and No Rebound tenderness present Auscultation: normal bowel sounds Objective Data Vital Signs Vital Signs: Vital Signs - 24 hr 10/02/22 14:51 10/02/22 16:30 10/02/22 19:46 Temperature 98.4 F 98.4 F 98 F Pulse Rate 73 68 74 Respiratory Rate 18 18 17 Blood Pressure 131/65 136/79 122/83 Pulse Oximetry 98 97 98 Oxygen Delivery 10/02/22 23:34 10/02/22 20:00 10/03/22 04:00 Temperature 98.5 F 97.8 F Pulse Rate 86 68 Respiratory Rate 18 18 Blood Pressure 112/79 107/64 Pulse Oximetry 95 99 Oxygen Delivery Room Air 10/03/22 10:00 Temperature 97.5 F L Pulse Rate 72 Respiratory Rate 16 Blood Pressure 155/92 H Pulse Oximetry 99 Oxygen Delivery Intake/Output Intake/Output: Intake & Output 09/30/22 10/01/22 10/02/22 10/03/22 23:59 23:59 23:59 23:59 Intake Total 100 2910 3940 1080 Output Total 900 1025 1600 Balance 100 2009 2915 -520 Meds/Results Medications: Active Medications Generic Name Dose Route Start Last Admin Trade Name Freq PRN Reason Stop Dose Admin Acetaminophen 1,000 mg 10/03/22 01:06 10/03/22 01:19 Acetaminophen 500 Mg Tablet PO 1,000 mg Q6H PRN Administration Mild Pain (1-3) or Fever Heparin Sodium (Porcine) 5,000 units 10/01/22 21:00 10/03/22 08:57 Heparin Sodium 5,000 Units/Ml Vial SUB-Q 5,000 units Q12HR CHERRI Administration Hydromorphone HCl 1 mg 09/30/22 20:16 10/02/22 15:04 Hydromorphone Hcl Inj (*Crx) 1 Mg/Ml Syr IV PUSH 1 mg Q3H PRN Administration Pain Rated 7-10 Piperacillin Sod/Tazobactam 100 mls @ 200 mls/hr 09/30/22 21:00 10/03/22 09:45 Sod 4.5 gm/ Sodium Chloride IVPB Infused Q6H CHERRI Infusion Potassium Chloride/Sodium Chloride 1,000 mls @ 75 mls/hr 10/01/22 09:00 10/02/22 18:29 Kcl 20 Meq/Ns IV CONT 75 mls/hr .[id number] CHERRI Administration Melatonin 5 mg 10/01/22 20:06 10/02/22 20:16 Melatonin 5 Mg Tablet PO 5 mg HS PRN Administration Insomnia Ondansetron HCl 4 mg 09/30/22 20:12 10/01/22 09:54 Ondansetron Inj 4 Mg/2 Ml Vial IV PUSH 4 mg Q6H PRN Administration Nausea And Vomiting Tamsulosin HCl 0.4 mg 09/30/22 21:00 02
--- NOTE | 2022-10-03 13:56 | PM.IMPN ---
Progress Note: A&P Assessment and Plan (1) Diverticulitis of intestine with perforation and abscess: Code(s): K57.80 - Diverticulitis of intestine, part unspecified, with perforation and abscess without bleeding Status: Acute Plan 67 years old M with PMH of prostate cancer presented with abdominal pain,Abdominal pelvis CT was read as sigmoid diverticulitis with microperforation and small abscess.? Surgery was consulted.? The patient was given Levaquin and IV fluids in the emergency room at [place].? Perisigmoid abscess measuring 1.7 x 1.4 x 1.6.?. # Acute Abdominal pain: 2/2 acute diverticulitis with likely micro perforation/abscess IV fluid with potassium Pain control Appreciate Surgery help c/w Zosyn Continue serial abdominal exam little lumpy this felt on left lower quadrant persist May need re scan at some point. Continue current treatment # UTI: c/w Zosyn Await urine culture # DVT ppx:hep SQ # Code:Full # history of prostate cancer status post radiation most recently August 01, 2022 currently on Lupron therapy. # history of urethral rupture from trauma with accompanying pelvic fracture in the past # Disp: pending improvement Subjective Date/time seen: 10/03/22 13:56 Interval history: Reports worsened pain overnight. Feeling better currently. Was feeling bloated had multiple bowel movement. No fever and chills. Review of Systems Review of Systems: All systems reviewed & are unremarkable except as noted in HPI and below Exam Narrative: GENERAL: The patient is well developed, not in acute distress HEENT: Nonicteric sclerae, PERRLA, EOMI. Oropharynx clear. Moist mucous membranes. Conjunctivae appear well perfused. CHEST: Chest wall is nontender. HEART: Regular rate and rhythm without murmur, rubs, or gallops LUNGS: Clear to auscultation bilaterally. no respiratory distress ABDOMEN: Soft, positive bowel sounds, tender left lower quadrant, no organomegaly. SKIN: No rash, no excessive bruising, petechiae, or purpura. NEUROLOGIC: Cranial nerves II-XII intact, alert and oriented x 3, no gross motor deficits EXTREMITIES: no edema, cyanosis or clubbing Objective Data Vital Signs Vital Signs: Vital Signs - 24 hr 10/02/22 14:51 10/02/22 16:30 10/02/22 19:46 Temperature 98.4 F 98.4 F 98 F Pulse Rate 73 68 74 Respiratory Rate 18 18 17 Blood Pressure 131/65 136/79 122/83 Pulse Oximetry 98 97 98 Oxygen Delivery 10/02/22 23:34 10/02/22 20:00 10/03/22 04:00 Temperature 98.5 F 97.8 F Pulse Rate 86 68 Respiratory Rate 18 18 Blood Pressure 112/79 107/64 Pulse Oximetry 95 99 Oxygen Delivery Room Air 10/03/22 10:00 Temperature 97.5 F L Pulse Rate 72 Respiratory Rate 16 Blood Pressure 155/92 H Pulse Oximetry 99 Oxygen Delivery Intake/Output Intake/Output: Intake & Output 09/30/22 10/01/22 10/02/22 10/03/22 23:59 23:59 23:59 23:59 Intake Total 100 2910 3940 1080 Output Total 900 1025 1600 Balance 100 2009 2914 -320 Meds/Results Medications: Active Medications Generic Name Dose Route Start Last Admin Trade Name Freq PRN Reason Stop Dose Admin Acetaminophen 1,000 mg 10/03/22 01:06 10/03/22 01:19 Acetaminophen 500 Mg Tablet PO 1,000 mg Q6H PRN Administration Mild Pain (1-3) or Fever Heparin Sodium (Porcine) 5,000 units 10/01/22 21:00 10/03/22 08:57 Heparin Sodium 5,000 Units/Ml Vial SUB-Q 5,000 units Q12HR CHERRI Administration Hydromorphone HCl 1 mg 09/30/22 20:16 10/02/22 15:04 Hydromorphone Hcl Inj (*Crx) 1 Mg/Ml Syr IV PUSH 1 mg Q3H PRN Administration Pain Rated 7-10 Piperacillin Sod/Tazobactam 100 mls @ 200 mls/hr 09/30/22 21:00 10/03/22 09:45 Sod 4.5 gm/ Sodium Chloride IVPB Infused Q6H CHERRI Infusion Potassium Chloride/Sodium Chloride 1,000 mls @ 75 mls/hr 10/01/22 09:00 10/02/22 18:29 Kcl 20 Meq/Ns IV CONT 75 mls/hr .[id number] CHERRI Administration Melatonin 5 mg 10/01/22 20:06 10/02/22
[2022-10-03 14:00] VITALS: BP 136/79; PULSE 80; RESP 18; TEMP 36.6; O2SAT 80
[2022-10-03] MEDS: PIPERACILLIN/TAZOBACTAM SOD 4.5 GM in SODIUM CHLORIDE 0.9% IV 100 ML 200 ML IVPB ×2 (14:15→21:44)
[2022-10-03 18:00] VITALS: BP 150/87; PULSE 79; RESP 14; TEMP 36.4; O2SAT 98
[2022-10-03 20:00] VITALS: BP 153/78; PULSE 75; RESP 18; TEMP 36.9; O2SAT 98
[2022-10-03] MEDS: TAMSULOSIN HCL 0.4 MG CAPSULE PO (21:45)
[2022-10-04] VITALS: BP 127/77; PULSE 66; RESP 16; TEMP 36.8; O2SAT 97
[2022-10-04] MEDS: PIPERACILLIN/TAZOBACTAM SOD 4.5 GM in SODIUM CHLORIDE 0.9% IV 100 ML 200 ML IVPB ×3 (02:13→15:29)
[2022-10-04 04:00] VITALS: BP 126/65; PULSE 58; RESP 14; TEMP 36.6; O2SAT 99
[2022-10-04 06:26] LABS: Basophils Percent Auto 0.2 % (0.2-1.2); Eosinophils Percent Auto 0.7 % (0-4.4); Hematocrit 27.2 % (42.0-52.0); Hemoglobin 9.1 g/dL (14.0-18.0); Immature Granulocyte Absolute 0.01 K/mm3 (0.00-0.031); Immature Granulocyte Percent A 0.2 % (0-0.5); Lymphocytes Absolute Auto 0.29 K/mm3 (0.9-3.2); Lymphocytes Percent Auto 6.7 % (18.3-44.2); Mean Corpuscular HGB Conc 33.5 g/dl (32-36); Mean Corpuscular Hemoglobin 33.3 pg (26-34); Mean Corpuscular Volume 99.6 fl (80-100); Mean Platelet Volume 8.9 fl (7.4-10.4); Monocytes Absolute Auto 0.5 K/mm3 (0.1-0.6); Monocytes Percent Auto 12.1 % (2.6-8.5); Neutrophils Absolute Auto 3.5 K/mm3 (1.3-6.7); Neutrophils Percent Auto 80.1 % (45.5-73.1); Platelet Count Result 161 k/mm3 (150-375); Red Blood Count 2.73 M/mm3 (4.6-6.20); Red Cell Distribution Width 13.1 % (11.5-14.5); White Blood Count 4.3 K/mm3 (4.5-10.0)
[2022-10-04 06:38] LABS: Alanine Aminotransferase 21 U/L (6-50); Albumin Level 3.2 g/dL (3.5-5.1); Alkaline Phosphatase 63 U/L (38-126); Anion Gap 3 mmol/L (8-16); Aspartate Amino Transferase 22 U/L (17-59); Bilirubin,Total 0.7 mg/dL (0.2-1.3); Blood Urea Nitrogen 8 mg/dL (9-20); Calcium 8.3 mg/dL (8.4-10.2); Carbon Dioxide 28 mmol/L (22-30); Chloride 102 mmol/L (98-107); Estimated CRCL calculation 114 ml/min; Estimated Glomerular Filt Rate > 60; Glucose 122 mg/dL (65-110); Magnesium 1.7 mg/dL (1.6-2.3); Potassium 3.3 mmol/L (3.4-5.0); Sodium 133 mmol/L (137-145)
[2022-10-04] MEDS: HEPARIN SODIUM 5,000 UNITS/ML VIAL 5000 UNITS SUB-Q (09:17)
[2022-10-04] MEDS: POTASSIUM CHLORIDE 20 MEQ TABLET 40 MEQ PO (09:26)
--- NOTE | 2022-10-04 10:12 | PM.PNGS ---
Progress Note: A&P Assessment and Plan (1) Diverticulitis of intestine with perforation and abscess: Code(s): K57.80 - Diverticulitis of intestine, part unspecified, with perforation and abscess without bleeding Status: Acute Assessment and Plan: feels better, cont low fiber diet, ok to dc c po abx, f/u 2 wks (2) Umbilical hernia: Code(s): K42.9 - Umbilical hernia without obstruction or gangrene Status: Acute Assessment and Plan: will need interval repair as outpt Subjective Subjective Date/Time Seen: 10/04/22 10:12 feels ok, still c some mild pain in lower abd, reports loose stools Review of Systems Review of Systems: All systems reviewed & are unremarkable except as noted in HPI and below Exam Const: General: cooperative, comfortable and no acute distress Resp: Auscultation: clear to auscultation bilaterally Cardio: Rate: regular rate Rhythm: regular rhythm GI: Inspection: normal to inspection and distended GI Palp: Yes abdominal tenderness, Yes Soft to palpation, Yes Tenderness to palpation present (GI), No Guarding due to palpation present (GI) and No Rigid due to palpation Objective Data Vital Signs Vital Signs: Vital Signs - 24 hr 10/03/22 14:00 10/03/22 18:00 10/03/22 20:00 Temperature 36.6 C 36.4 C 36.9 C Pulse Rate 80 79 75 Respiratory Rate 18 14 18 Blood Pressure 136/79 150/87 H 153/78 H Pulse Oximetry 80 L 98 98 10/04/22 00:00 10/04/22 04:00 Temperature 36.8 C 36.6 C Pulse Rate 66 58 L Respiratory Rate 16 14 Blood Pressure 127/77 126/65 Pulse Oximetry 97 99 Intake/Output Intake/Output: Intake & Output 10/01/22 10/02/22 10/03/22 10/04/22 23:59 23:59 23:59 23:59 Intake Total 2910 3940 2380 100 Output Total 900 1025 1600 Balance 2009 2915 780 100 Meds/Results Medications: Active Medications Generic Name Dose Route Start Last Admin Trade Name Freq PRN Reason Stop Dose Admin Acetaminophen 1,000 mg 10/03/22 01:06 10/03/22 01:19 Acetaminophen 500 Mg Tablet PO 1,000 mg Q6H PRN Administration Mild Pain (1-3) or Fever Heparin Sodium (Porcine) 5,000 units 10/01/22 21:00 10/04/22 09:17 Heparin Sodium 5,000 Units/Ml Vial SUB-Q 5,000 units Q12HR CHERRI Administration Hydromorphone HCl 1 mg 09/30/22 20:16 10/02/22 15:04 Hydromorphone Hcl Inj (*Crx) 1 Mg/Ml Syr IV PUSH 1 mg Q3H PRN Administration Pain Rated 7-10 Piperacillin Sod/Tazobactam 100 mls @ 200 mls/hr 09/30/22 21:00 10/04/22 09:18 Sod 4.5 gm/ Sodium Chloride IVPB 200 mls/hr Q6H CHERRI Administration Melatonin 5 mg 10/01/22 20:06 10/02/22 20:16 Melatonin 5 Mg Tablet PO 5 mg HS PRN Administration Insomnia Ondansetron HCl 4 mg 09/30/22 20:12 10/01/22 09:54 Ondansetron Inj 4 Mg/2 Ml Vial IV PUSH 4 mg Q6H PRN Administration Nausea And Vomiting Tamsulosin HCl 0.4 mg 09/30/22 21:00 10/03/22 21:45 Tamsulosin Hcl 0.4 Mg Capsule PO 0.4 mg HS CHERRI Administration Labs Labs: Laboratory Results - last 24 hr 10/04/22 10/04/22 06:17 06:17 WBC 4.3 L RBC 2.73 L Hgb 9.1 L Hct 27.2 L MCV 99.6 MCH 33.3 MCHC 33.5 RDW 13.1 Plt Count 161 MPV 8.9 Immature Gran % (Auto) 0.2 Neut % (Auto) 80.1 H Lymph % (Auto) 6.7 L Buchanan % (Auto) 12.1 H Eos % (Auto) 0.7 Baso % (Auto) 0.2 Lymph # (Auto) 0.29 L Buchanan # (Auto) 0.5 Eos # (Auto) 0.0 Baso # (Auto) 0.0 Abs Immat Gran (auto) 0.01 Absolute Neuts (auto) 3.5 Absolute Nucleated RBC 0.0 Nucleated RBC % 0.0 Sodium 133 L Potassium 3.3 L Chloride 102 Carbon Dioxide 28 Anion Gap 3 L BUN 8 L Creatinine 0.60 L Estim Creat Clear Calc 114 Estimated GFR > 60 Glucose 122 H Calcium 8.3 L Magnesium 1.7 Total Bilirubin 0.7 AST 22 ALT 21 Alkaline Phosphatase 63 Total Protein 6.0 L Albumin 3.2 L
--- NOTE | 2022-10-04 13:37 | PM.IMPN ---
Progress Note: A&P Assessment and Plan (1) Diverticulitis of intestine with perforation and abscess: Code(s): K57.80 - Diverticulitis of intestine, part unspecified, with perforation and abscess without bleeding Status: Acute Plan 67 years old M with PMH of prostate cancer presented with abdominal pain,Abdominal pelvis CT was read as sigmoid diverticulitis with microperforation and small abscess.? Surgery was consulted.? The patient was given Levaquin and IV fluids in the emergency room at [facility].? Perisigmoid abscess measuring 1.7 x 1.4 x 1.6.?. # Acute Abdominal pain: 2/2 acute diverticulitis with likely micro perforation/abscess IV fluid with potassium Pain control Appreciate Surgery help c/w Zosyn Continue serial abdominal exam little lumpy this felt on left lower quadrant persist . Will Continue current treatment # UTI: c/w Zosyn Await urine culture # DVT ppx:hep SQ # Code:Full # history of prostate cancer status post radiation most recently August 01, 2022 currently on Lupron therapy. # history of urethral rupture from trauma with accompanying pelvic fracture in the past # Disp: pending improvement Subjective Date/time seen: 10/04/22 13:37 Interval history: reports loose stool. Lower abdominal discomfort persist. Overall feeling better. Tolerating diet. Remains afebrile. Review of Systems Review of Systems: All systems reviewed & are unremarkable except as noted in HPI and below Exam Narrative: GENERAL: The patient is well developed, not in acute distress HEENT: Nonicteric sclerae, PERRLA, EOMI. Oropharynx clear. Moist mucous membranes. Conjunctivae appear well perfused. CHEST: Chest wall is nontender. HEART: Regular rate and rhythm without murmur, rubs, or gallops LUNGS: Clear to auscultation bilaterally. no respiratory distress ABDOMEN: Soft, positive bowel sounds, tender left lower quadrant, no organomegaly. SKIN: No rash, no excessive bruising, petechiae, or purpura. NEUROLOGIC: Cranial nerves II-XII intact, alert and oriented x 3, no gross motor deficits EXTREMITIES: no edema, cyanosis or clubbing Objective Data Vital Signs Vital Signs: Vital Signs - 24 hr 10/03/22 14:00 10/03/22 18:00 10/03/22 20:00 Temperature 97.9 F 97.6 F 98.4 F Pulse Rate 80 79 75 Respiratory Rate 18 14 18 Blood Pressure 136/79 150/87 H 153/78 H Pulse Oximetry 80 L 98 98 Oxygen Delivery 10/04/22 00:00 10/04/22 04:00 10/04/22 09:00 Temperature 98.3 F 97.9 F Pulse Rate 66 58 L Respiratory Rate 16 14 Blood Pressure 127/77 126/65 Pulse Oximetry 97 99 Oxygen Delivery Room Air Intake/Output Intake/Output: Intake & Output 10/01/22 10/02/22 10/03/22 10/04/22 23:59 23:59 23:59 23:59 Intake Total 2910 3940 2380 200 Output Total 900 1025 1600 Balance 2010 2915 780 200 Meds/Results Medications: Active Medications Generic Name Dose Route Start Last Admin Trade Name Freq PRN Reason Stop Dose Admin Acetaminophen 1,000 mg 10/03/22 01:06 10/03/22 01:19 Acetaminophen 500 Mg Tablet PO 1,000 mg Q6H PRN Administration Mild Pain (1-3) or Fever Heparin Sodium (Porcine) 5,000 units 10/01/22 21:00 10/04/22 09:17 Heparin Sodium 5,000 Units/Ml Vial SUB-Q 5,000 units Q12HR CHERRI Administration Hydromorphone HCl 1 mg 09/30/22 20:16 10/02/22 15:04 Hydromorphone Hcl Inj (*Crx) 1 Mg/Ml Syr IV PUSH 1 mg Q3H PRN Administration Pain Rated 7-10 Piperacillin Sod/Tazobactam 100 mls @ 200 mls/hr 09/30/22 21:00 10/04/22 09:48 Sod 4.5 gm/ Sodium Chloride IVPB Infused Q6H CHERRI Infusion Melatonin 5 mg 10/01/22 20:06 10/02/22 20:16 Melatonin 5 Mg Tablet PO 5 mg HS PRN Administration Insomnia Ondansetron HCl 4 mg 09/30/22 20:12 10/01/22 09:54 Ondansetron Inj 4 Mg/2 Ml Vial IV PUSH 4 mg Q6H PRN Administration Nausea And Vomiting Tamsulosin HCl 0.4 mg 09/30/22 21:00 10/03/22 21:45 Tamsulosin Hcl 0.4 Mg Capsu
--- NOTE | 2022-10-04 15:18 | PM.DS ---
DS: Admitting Diagnosis Discharge Date 10/04/2022 Admitting Diagnosis Abdominal pain DS: Discharge Diagnosis Discharge Diagnosis (1) Diverticulitis of intestine with perforation and abscess: Code(s): K57.80 - Diverticulitis of intestine, part unspecified, with perforation and abscess without bleeding Status: Acute DS: Summary Hospital Course Hospital Course: 67 years old M with PMH of prostate cancer presented with abdominal pain,Abdominal pelvis CT was read as sigmoid diverticulitis with microperforation and small abscess.? Surgery was consulted.? The patient was given Levaquin and IV fluids in the emergency room at [facility].? Perisigmoid abscess measuring 1.7 x 1.4 x 1.6. # Acute Abdominal pain: 2/2 acute diverticulitis with likely micro perforation/abscess IV fluid with potassium Pain control Appreciate Surgery help c/w Zosyn Continue serial abdominal exam with improvement. Discussed with General surgery. Will switch to amoxicillin clavulanate for 7 more days follow-up with surgeon in 1 week # UTI: c/w Zosyn Urine culture with coag-negative staph not saphrophyticus. will switch to oral augmentin # DVT ppx:hep SQ # Code:Full # history of prostate cancer status post radiation most recently August 01, 2022 currently on Lupron therapy. # history of urethral rupture from trauma with accompanying pelvic fracture in the past # Disp: Home self-care Time Spent with Patient Time attestation: Total time spent providing and/or coordinating discharge services: DS: Data Data Completed and Pending Labs on day of discharge: Labs from last 24 hours 10/04/22 10/04/22 06:17 06:17 WBC 4.3 L RBC 2.73 L Hgb 9.1 L Hct 27.2 L MCV 99.6 MCH 33.3 MCHC 33.5 RDW 13.1 Plt Count 161 MPV 8.9 Immature Gran % (Auto) 0.2 Neut % (Auto) 80.1 H Lymph % (Auto) 6.7 L [place] % (Auto) 12.1 H Eos % (Auto) 0.7 Baso % (Auto) 0.2 Lymph # (Auto) 0.29 L [place] # (Auto) 0.5 Eos # (Auto) 0.0 Baso # (Auto) 0.0 Abs Immat Gran (auto) 0.01 Absolute Neuts (auto) 3.5 Absolute Nucleated RBC 0.0 Nucleated RBC % 0.0 Sodium 133 L Potassium 3.3 L Chloride 102 Carbon Dioxide 28 Anion Gap 3 L BUN 8 L Creatinine 0.60 L Estim Creat Clear Calc 114 Estimated GFR > 60 Glucose 122 H Calcium 8.3 L Magnesium 1.7 Total Bilirubin 0.7 AST 22 ALT 21 Alkaline Phosphatase 63 Total Protein 6.0 L Albumin 3.2 L Discharge Plan Discharge Attending physician on discharge: Ramsey Burgess Consulting providers: Seema Suero Discharging Clinician: Ramsey Burgess Anticipated Discharge Date/Time: 10/04/22 15:16 Patient Disposition: Home, Self-Care Activity: as tolerated Diet: low fiber Patient Instructions: Antibiotic Form, Depression (DC), Suicide Prevention (DC), Depression Management for Older Adults (DC) Stand Alone Forms: General Discharge Information Follow-up/Referrals: Seema Suero MD [Physician] - 1 Week Patel Hartman MD [Primary Care Provider] - 1 Week Discharge Medications: New amoxicillin-pot clavulanate 875-125 mg tablet 1 tablet PO Q12H Qty: 14 0RF Continued tamsulosin 0.4 mg capsule 0.4 mg PO HS leuprolide (3 month) 22.5 mg Syringe 22.5 mg SUBCUT [id number] Date of admission: 09/30/22 20:12 Primary Care Provider: Patel Hartman Admitting Provider: Nella Aguero Attending physician on admission: Nella Aguero Condition: Improved
[2022-10-04 15:50] VITALS: BP 147/84; PULSE 69; RESP 12; TEMP 37.2; O2SAT 100
== END 2022-10-04 17:44 | disposition home or self-care (01) | DRG 392 ==
PROVIDERS: Nurse Practitioner; Nurse Practitioner Family; Admitting Provider Family Medicine; PCP Family Medicine; Visit Provider Internal Medicine
DX: K57.20 Diverticulitis of large intestine with perforation and abscess without bleeding (principal); K42.9 Umbilical hernia without obstruction or gangrene; N40.0 Benign prostatic hyperplasia without lower urinary tract symptoms; R33.9 Retention of urine, unspecified; M19.90 Unspecified osteoarthritis, unspecified site; M41.9 Scoliosis, unspecified; Z96.643 Presence of artificial hip joint, bilateral; Z85.46 Personal history of malignant neoplasm of prostate
CPT/HCPCS: 36415; 80048; 80053; 81001; 83605; 83735; 84443; 85025; 85027; A9270; J0131; J1170; J1644; J2405; J2543; J3480

== ENCOUNTER 2022-10-10 10:40 | Outpatient (CLI) | payer MEDICARE, SELFPAY ==
[2022-10-10 10:56] LABS: Basophils Absolute Auto 0.03 K/mm3 (0.00-0.10); Basophils Percent Auto 0.4 % (0.0-1.0); Eosinophils Absolute Auto 0.04 K/mm3 (0.02-0.50); Eosinophils Percent Auto 0.5 % (1.0-6.0); Hematocrit 33.4 % (37.0-46.0); Immature Granulocyte Absolute 0.05 K/mm3 (0.00-0.00); Immature Granulocyte Percent A 0.6 % (0.0-0.0); Lymphocytes Absolute Auto 0.63 K/mm3 (1.10-4.50); Lymphocytes Percent Auto 8.1 % (18.0-42.0); Mean Corpuscular HGB Conc 32.9 g/dL (32.0-36.0); Mean Corpuscular Hemoglobin 34.2 pg (27.0-31.0); Mean Corpuscular Volume 103.7 fL (78.0-102.0); Mean Platelet Volume 8.5 fl (8.7-11.0); Monocytes Absolute Auto 0.49 K/mm3 (0.10-0.90); Monocytes Percent Auto 6.3 % (2.0-11.0); Neutrophils Absolute Auto 6.5 K/mm3 (1.7-7.2); Neutrophils Percent Auto 84.1 % (50.0-70.0); Platelet Count Result 465 K/mm3 (150-420); Red Blood Count 3.22 M/mm3 (4.70-6.10); Red Cell Distribution Width 13.1 % (11.6-14.4); White Blood Count 7.7 K/mm3 (4.8-10.8)
[2022-10-10 11:21] LABS: Alanine Aminotransferase 22 U/L (16-63); Albumin Level 3.2 g/dL (3.4-5.0); Alkaline Phosphatase 57 U/L (46-116); Anion Gap 6 mmol/L (8-16); Aspartate Amino Transferase 17 U/L (15-37); Bilirubin,Total 0.3 mg/dL (0.00-1.00); Blood Urea Nitrogen 10 mg/dL (7-18); Calcium 8.9 mg/dL (8.5-10.1); Carbon Dioxide 30 mmol/L (21-32); Chloride 101 mmol/L (98-108); Estimated Glomerular Filt Rate > 60; Glucose 97 mg/dL (70-99); Osmolality Calculated 283 mOsm/kg (285-295); Potassium 4.1 mmol/L (3.5-5.1); Sodium 137 mmol/L (136-145); Total Protein 6.8 g/dL (6.4-8.2)
== END 2022-10-10 10:41 | disposition home or self-care (01) ==
LOC: CHSLAB 10:43
PROVIDERS: PCP Family Medicine; Visit Provider Family Medicine
DX: K57.80 Diverticulitis of intestine, part unspecified, with perforation and abscess without bleeding (principal)
CPT/HCPCS: 36415; 80053; 85025

== ENCOUNTER 2022-11-04 01:03 | Day surgery (SDC) | payer MEDICARE, MEDICAID, SELFPAY ==
[2022-10-23 14:21] VITALS: BMI 27.4
[2022-11-04 13:13] VITALS: BP 153/77; PULSE 61; RESP 18; TEMP 36.6; O2SAT 100; BMI 27.8
[2022-11-04] MEDS: LACTATED RINGERS 1,000 ML 150 ML IV CONT (13:26)
--- NOTE | 2022-11-04 13:31 | WPDANESEPPF ---
Anes - Initial Pre Proc Eval Procedure: Operation Date: 11/04/22 14:30 Proposed Procedures p Colonoscopy - Vinayak Seth MD Date/Time: 11/04/22 13:31 Surgeon: Vinayak Seth MD Pre Op Diagnosis: Diverticulitis Patient Data Age: 67 Gender: M Height: 1.83 m Weight: 92.9 kg Last Vital Signs Temp 36.6 C 11/04/22 13:13 Pulse 61 11/04/22 13:13 Resp 18 11/04/22 13:13 BP 153/77 H 11/04/22 13:13 Pulse Ox 100 11/04/22 13:13 O2 Del Method Room Air 11/04/22 13:13 Allergies Allergy/AdvReac Type Severity Reaction Status Date / Time amoxicillin Allergy Swelling Verified 11/04/22 13:12 of Lip/Tongue/Throat Home Medications Medication Instructions Recorded Confirmed Type leuprolide (3 month) 22.5 mg (3 22.5 mg subcut [id number] 09/30/22 11/04/22 History month) subcutaneous syringe tamsulosin 0.4 mg capsule 0.4 mg PO HS 09/30/22 11/04/22 History Patient hx anesthesia problems: none Family hx anesthesia problems: none Results Review: All pre-operative results and documents have been reviewed as part of the pre-operative evaluation. [facility] Past Medical History Medical History BPH (benign prostatic hyperplasia) Diverticulosis Fractured pelvis Inguinal hernia Osteoarthritis Prostate cancer Scoliosis Urethral stricture Surgical History Surgical History H/O colonoscopy H/O prostate biopsy H/O: vasectomy History of hip replacement Bilateral History of laparotomy urethral repair for rupture following trauma many years ago that caused a stricture and required him to catheterize himself for about a year following surgery S/P cystourethroscopy with dilation of urethral stricture Social History Social History Social History: He is and has 3 children. He lives alone. 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 He does smoke some marijuana now.. He does not smoke cigarettes. Code status full code Smoking packs per day: 1 Smoking cigarettes per day: 20.0 Smoking status: Former smoker Smoking end date: 05/05/19 Alcohol intake: current Drinks per week: 6 Substance use: current Substance use type: marijuana Lack of Transportation: No Lack of Food: Sometimes True Current Housing: I Have Housing Concerned About Future Housing: No Difficulty Paying Gas/Electric Bills: YES Difficulty Paying for Meds: YES Currently Unemployed: No Education: Associate Degree Difficulty w/ Childcare or Family Care: No Living arrangements: alone Spiritual care concerns: No Anes - Eval Final PreProcedure Day of Procedure 11/04/22 13:31 Patient weight: overweight Heart: regular rate and rhythm Lungs: clear to auscultation Airway: Mallampati scale class II Neurological: alert and oriented Last oral intake: >/= 8 hours ASA classification: III Emergent: no Anesthetic plan: proceed Anesthesia type and monitoring: general GIVS and standard monitoring Results Review: All pre-operative results and documents have been reviewed as part of the pre-operative evaluation. Informed Consent: The patient's anesthetic plan and its attendant risks and benefits were discussed with the patient/family/POA. Questions were solicited and answers provided to the satisfaction of the patient/family/POA.
--- NOTE | 2022-11-04 13:44 | PM.HPGS ---
History of Present Illness History of Present Illness Consent: Risks, benefits, and alternatives have been discussed and questions answered. Patient agrees to proceed with procedure. Chief complaint: Diverticulitis Narrative: Malik Morales is a 67 year old male with last colonoscopy 2016 had polyps, had perforated diverticulitis treated medically, last year also had pelvic radiation because prostate cancer Review of Systems Constitutional: Constitutional: Denies headache(s) and Denies weakness Eyes: Eyes: Denies blurry vision ENT: Reports Normal hearing present, Denies headache(s) and Denies neck pain Cardiovascular: Cardiovascular: Denies chest pain and Denies dyspnea Respiratory: Respiratory: Denies dyspnea Gastrointestinal: Gastrointestinal: Reports no additional gastrointestinal complaints Genitourinary: Genitourinary: Denies dysuria Musculoskeletal: Musculoskeletal: Denies neck pain Integumentary/Breasts: Skin/Breast: Denies dry skin Neurologic: Reports Normal hearing present, Denies headache(s) and Denies weakness Psychiatric: Psychiatric: Denies anxiety Endocrine: Endocrine: Denies change in body appearance Hematologic/Lymphatic: Hematologic/Lymphatic: Denies easy bleeding Allergic/Immunologic: Allergic/Immunologic: Denies urticaria PMFSH Past Medical History Medical History BPH (benign prostatic hyperplasia) Diverticulosis Fractured pelvis Inguinal hernia Osteoarthritis Prostate cancer Scoliosis Urethral stricture Surgical History Surgical History H/O colonoscopy H/O prostate biopsy H/O: vasectomy History of hip replacement Bilateral History of laparotomy urethral repair for rupture following trauma many years ago that caused a stricture and required him to catheterize himself for about a year following surgery S/P cystourethroscopy with dilation of urethral stricture Social History Social History Social History: He is and has 3 children. He lives alone. 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 He does smoke some marijuana now.. He does not smoke cigarettes. Code status full code Smoking packs per day: 1 Smoking cigarettes per day: 20.0 Smoking status: Former smoker Smoking end date: 05/05/19 Alcohol intake: current Drinks per week: 6 Substance use: current Substance use type: marijuana Lack of Transportation: No Lack of Food: Sometimes True Current Housing: I Have Housing Concerned About Future Housing: No Difficulty Paying Gas/Electric Bills: YES Difficulty Paying for Meds: YES Currently Unemployed: No Education: Associate Degree Difficulty w/ Childcare or Family Care: No Living arrangements: alone Spiritual care concerns: No Meds Home Medications and Allergies Home Medications Medication Instructions Recorded Confirmed Type leuprolide (3 month) 22.5 mg (3 22.5 mg subcut [id number] 09/30/22 11/04/22 History month) subcutaneous syringe tamsulosin 0.4 mg capsule 0.4 mg PO HS 09/30/22 11/04/22 History Allergies Allergy/AdvReac Type Severity Reaction Status Date / Time amoxicillin Allergy Swelling Verified 11/04/22 13:12 of Lip/Tongue/Throat Vital Signs Vital Signs - 24 hr 11/04/22 13:13 Temperature 97.9 F Pulse Rate 61 Respiratory Rate 18 Blood Pressure 153/77 H Pulse Oximetry 100 Oxygen Delivery Room Air Exam Const: General: comfortable and no acute distress HENMT: Face/Nose/Sinus: Normal nares present Eyes: General: appearance normal, both eyes and all related structures Neck: Neck: no JVD Resp: Auscultation: clear to auscultation bilaterally Cardio: Rate: regular rate Rhythm: regular rhythm GI: Inspection: non-distended GI Palp: Yes Soft to palpation Skin: General skin exam: normal color Neuro: Gener
[2022-11-04 14:10] VITALS: BP 118/65; PULSE 71; RESP 19; O2SAT 97
[2022-11-04 14:20] VITALS: BP 124/89; PULSE 64; RESP 19; O2SAT 100
[2022-11-04 14:30] VITALS: BP 129/81; PULSE 66; RESP 21; O2SAT 98
== END 2022-11-04 14:34 | disposition home or self-care (01) ==
PROVIDERS: PCP Family Medicine; Visit Provider Internal Medicine Gastroenterology
PROC: 0DJD8ZZ Inspection of Lower Intestinal Tract, Via Natural or Artificial Opening Endoscopic (ICD-10-PCS; CPT 45378; principal; 2022-11-04 14:30)
DX: K57.32 Diverticulitis of large intestine without perforation or abscess without bleeding (principal); D12.2 Benign neoplasm of ascending colon; D12.5 Benign neoplasm of sigmoid colon; D12.3 Benign neoplasm of transverse colon; C61 Malignant neoplasm of prostate; M19.90 Unspecified osteoarthritis, unspecified site; Z96.643 Presence of artificial hip joint, bilateral; Z86.010 Personal history of colon polyps; Z92.3 Personal history of irradiation
CPT/HCPCS: 45385; 88305; J2704; J7120

== ENCOUNTER 2023-03-12 14:21 | Outpatient (CLI) | payer MEDICARE, SELFPAY ==
[2023-03-12 14:41] LABS: Basophils Absolute Auto 0.01 K/mm3 (0.00-0.10); Basophils Percent Auto 0.2 % (0.0-1.0); Eosinophils Absolute Auto 0.02 K/mm3 (0.02-0.50); Eosinophils Percent Auto 0.4 % (1.0-6.0); Hematocrit 37.6 % (37.0-46.0); Hemoglobin 12.7 g/dL (12.4-15.3); Immature Granulocyte Absolute 0.02 K/mm3 (0.00-0.00); Immature Granulocyte Percent A 0.4 % (0.0-0.0); Lymphocytes Absolute Auto 0.59 K/mm3 (1.10-4.50); Lymphocytes Percent Auto 12.3 % (18.0-42.0); Mean Corpuscular HGB Conc 33.8 g/dL (32.0-36.0); Mean Corpuscular Volume 100.5 fL (78.0-102.0); Mean Platelet Volume 8.5 fl (8.7-11.0); Monocytes Absolute Auto 0.38 K/mm3 (0.10-0.90); Monocytes Percent Auto 7.9 % (2.0-11.0); Neutrophils Absolute Auto 3.8 K/mm3 (1.7-7.2); Neutrophils Percent Auto 78.8 % (50.0-70.0); Platelet Count Result 232 K/mm3 (150-420); Red Blood Count 3.74 M/mm3 (4.70-6.10); Red Cell Distribution Width 14.1 % (11.6-14.4); White Blood Count 4.8 K/mm3 (4.8-10.8)
[2023-03-12 15:04] LABS: INR 0.9; Partial Thromboplastin Time 29.1 SEC (23.90-30.70)
[2023-03-12 15:47] LABS: Alanine Aminotransferase 15 U/L (16-63); Albumin Level 3.8 g/dL (3.4-5.0); Alkaline Phosphatase 53 U/L (46-116); Anion Gap 7 mmol/L (8-16); Aspartate Amino Transferase < 10 U/L (15-37); Bilirubin,Total 0.5 mg/dL (0.00-1.00); Blood Urea Nitrogen 9 mg/dL (7-18); Calcium 9.4 mg/dL (8.5-10.1); Carbon Dioxide 31 mmol/L (21-32); Chloride 103 mmol/L (98-108); Estimated Glomerular Filt Rate > 60; Glucose 85 mg/dL (70-99); Osmolality Calculated 289 mOsm/kg (285-295); Potassium 4.2 mmol/L (3.5-5.1); Sodium 141 mmol/L (136-145); Total Protein 6.7 g/dL (6.4-8.2)
[2023-03-12 16:00] LABS: Prostate Specific Antigen < 0.1 ng/mL (< OR = 4.0)
== END 2023-03-12 14:22 | disposition home or self-care (01) ==
LOC: CHSLAB 14:24
PROVIDERS: PCP Family Medicine; Visit Provider Family Medicine
DX: K92.1 Melena (principal); N42.81 Prostatodynia syndrome; R30.0 Dysuria; R31.9 Hematuria, unspecified
CPT/HCPCS: 36415; 80053; 84153; 85025; 85610; 85730

== ENCOUNTER 2023-03-13 15:06 | Outpatient (CLI) | payer MEDICARE, SELFPAY ==
[2023-03-13 15:19] LABS: Appearance Urine Clear (Clear); Bilirubin Urine Negative (Negative); Blood Urine Negative (Negative); Color Urine Yellow (Yellow); Glucose Urine UA Negative (Negative); Ketones Urine Negative (Negative); Leukocyte Esterase Ur Negative LEU/UL (Negative); Nitrate Urine Negative (Negative); Protein Urine Negative (Negative); Urobilinogen Urine 0.2 mg/dL (0.2-1.0)
[2023-03-13 15:24] LABS: Add Urine Microscopic? NO
== END 2023-03-13 15:07 | disposition home or self-care (01) ==
LOC: CHSLAB 15:08
PROVIDERS: PCP Family Medicine; Visit Provider Family Medicine
DX: R30.0 Dysuria (principal)
CPT/HCPCS: 81003

== ENCOUNTER 2023-04-22 13:38 | Outpatient (CLI) | payer MEDICARE, SELFPAY ==
[2023-04-22 14:47] LABS: Prostate Specific Antigen < 0.1 ng/mL (< OR = 4.0)
== END 2023-04-22 13:39 | disposition home or self-care (01) ==
LOC: CHSLAB 13:43
PROVIDERS: PCP Family Medicine
DX: C61 Malignant neoplasm of prostate (principal); Z79.818 Long term (current) use of other agents affecting estrogen receptors and estrogen levels; Z92.3 Personal history of irradiation
CPT/HCPCS: 36415; 84153

== ENCOUNTER 2023-06-28 12:25 | Emergency (ER) | payer MEDICARE, MEDICAID, SELFPAY ==
--- NOTE | ~2023-06-28 | CT_ITS ---
EXAMINATION: CT abdomen pelvis w con INDICATION: Abdominal pain and rectal bleeding TECHNIQUE: Computed tomographic images of the abdomen and pelvis were obtained after the administrati on of 100 cc of Omnipaque 350 intravenous contrast. The dose-length product (DLP) was 789.25 mGy-cm. Automated exposure control and iterative reconstruction technique were employed. COMPARISON: 09/30/2022 FINDINGS: Minimal dependent atelectasis is present in the lung bases. The heart size is normal. The l iver, spleen, pancreas, and adrenal glands are normal. There is a stone in the nondistended gallbladd er. The kidneys are unremarkable. There is mild bilateral hydroureter of unclear etiology. The distal ureters are obscured by hip arthroplasties. There is a short segment wall thickening of the sigmoid colon. No pathologically enlarged abdominal or pelvic lymph nodes are identified. No free intraperito goldie gas or evidence of bowel obstruction. There is gas in the urinary bladder. There is eccentric wa ll thickening at the left superolateral aspect of the bladder adjacent to the thickened portion of th e sigmoid colon. There is severe atrophy of the right iliopsoas muscle. There is severe lumbar spondy losis. A bone island is noted in the T12 vertebral body. There is an umbilical hernia containing fat. IMPRESSION: 1. Wall thickening of the sigmoid colon suspicious for acute versus chronic diverticulitis, neoplasm considered less likely. 2. Gas in the urinary bladder with eccentric wall thickening of the urinary bladder abutting the thic kened portion of the sigmoid colon which could reflect colovesical fistula. Reviewed, dictated and finalized at location F. IMPRESSION: 1. Wall thickening of the sigmoid colon suspicious for acute versus chronic div erticulitis, neoplasm considered less likely. 2. Gas in the urinary bladder with eccentric wall thickening of the urinary rio dder abutting the thickened portion of the sigmoid colon which could reflect co lovesical fistula.
[2023-06-28 12:25] VITALS: BP 157/90; PULSE 75; RESP 14; TEMP 36.5; O2SAT 99
[2023-06-28 12:55] LABS: Basophils Absolute Auto 0.02 K/mm3 (0.00-0.10); Basophils Percent Auto 0.5 % (0.0-1.0); Eosinophils Absolute Auto 0.01 K/mm3 (0.02-0.50); Eosinophils Percent Auto 0.2 % (1.0-6.0); Hematocrit 36.9 % (37.0-46.0); Hemoglobin 12.1 g/dL (12.4-15.3); Immature Granulocyte Absolute 0.02 K/mm3 (0.00-0.00); Immature Granulocyte Percent A 0.5 % (0.0-0.0); Lymphocytes Percent Auto 11.3 % (18.0-42.0); Mean Corpuscular HGB Conc 32.8 g/dL (32.0-36.0); Mean Corpuscular Hemoglobin 32.6 pg (27.0-31.0); Mean Corpuscular Volume 99.5 fL (78.0-102.0); Mean Platelet Volume 8.3 fl (8.7-11.0); Monocytes Absolute Auto 0.37 K/mm3 (0.10-0.90); Monocytes Percent Auto 8.4 % (2.0-11.0); Neutrophils Absolute Auto 3.5 K/mm3 (1.7-7.2); Neutrophils Percent Auto 79.1 % (50.0-70.0); Platelet Count Result 232 K/mm3 (150-420); Red Blood Count 3.71 M/mm3 (4.70-6.10); White Blood Count 4.4 K/mm3 (4.8-10.8)
[2023-06-28 13:08] LABS: Partial Thromboplastin Time 28.3 SEC (23.90-30.70); Prothrombin Time 10.6 Seconds (9.50-12.10)
[2023-06-28 13:11] LABS: Occult Blood Positive (Negative)
[2023-06-28] MEDS: SODIUM CHLORIDE 0.9% IV 1,000 ML 999 ML IV CONT (13:14)
[2023-06-28 13:15] LABS: Alanine Aminotransferase 13 U/L (16-63); Albumin Level 3.4 g/dL (3.4-5.0); Alkaline Phosphatase 54 U/L (46-116); Anion Gap 13 mmol/L (8-16); Aspartate Amino Transferase < 10 U/L (15-37); Bilirubin,Total 0.5 mg/dL (0.00-1.00); Blood Urea Nitrogen 12 mg/dL (7-18); Calcium 9.4 mg/dL (8.5-10.1); Carbon Dioxide 25 mmol/L (21-32); Chloride 100 mmol/L (98-108); Estimated CRCL calculation 77 ml/min; Estimated Glomerular Filt Rate > 60; Glucose 146 mg/dL (70-99); Lipase 16 U/L (16-77); Magnesium 1.9 mg/dL (1.8-2.4); Osmolality Calculated 288 mOsm/kg (285-295); Potassium 3.7 mmol/L (3.5-5.1); Sodium 138 mmol/L (136-145); Total Protein 6.6 g/dL (6.4-8.2)
[2023-06-28 13:16] LABS: Ammonia < 10 umol/L (11-32)
[2023-06-28 13:21] LABS: Appearance Urine Turbid (Clear); Bilirubin Urine Negative (Negative); Blood Urine 2+ (Negative); Color Urine Yellow (Yellow); Glucose Urine UA Negative (Negative); Ketones Urine Negative (Negative); Leukocyte Esterase Ur 3+ LEU/UL (Negative); Nitrate Urine Positive (Negative); Protein Urine 1+ (Negative); Urobilinogen Urine 0.2 mg/dL (0.2-1.0)
[2023-06-28 13:24] LABS: Add Urine Microscopic? YES; Bacteria Urine 1+ /hpf; Squamous Epithelial Cell Urine Rare /hpf (Few); WBC Urine >75 /hpf (0-3)
[2023-06-28 13:25] VITALS: BP 148/92; PULSE 78; RESP 20; O2SAT 98
[2023-06-28 13:41] LABS: Lactic Acid Reflex 2.9 mmol/L (0.4-2.0)
--- NOTE | 2023-06-28 13:58 | ED.GIBLEED ---
HPI - GI Bleed General Chief complaint: GI Bleed Stated complaint: painful urination Time Seen by Provider: 06/28/23 12:34 Source: patient Mode of arrival: ambulatory Limitations: no limitations History of Present Illness HPI Narrative: this is a 68-year-old male who presents with some rectal pain with some bright red blood per rectum, no overt blood at this time, also states that he has been having cloudy urine with dysuria, has a history of diverticulitis history of prostate cancer. Oncologist started Carafate for episodes of rectal bleeding that he states has been off and on for the last 2 months. There is no diarrhea or constipation is no fever chills no nausea vomiting or abdominal pain. There is no chest pain no shortness of breath no fever chills. complaint: gross hematochezia Onset (ago): day(s) Pain Consistency: intermittent Severity: mild Relieving factors: none Exacerbating factors: none Context: history of GI bleed and other ( history of diverticulitis) Related Data Home Medications Medication Instructions Recorded Confirmed leuprolide (3 month) 22.5 mg (3 22.5 mg subcut [id number] 09/30/22 11/04/22 month) subcutaneous syringe tamsulosin 0.4 mg capsule 0.4 mg PO HS 09/30/22 11/04/22 Allergies Allergy/AdvReac Type Severity Reaction Status Date / Time amoxicillin Allergy Swelling Verified 11/04/22 13:12 of Lip/Tongue/Throat Review of Systems Review of Systems: All systems reviewed & are unremarkable except as noted in HPI and below PMFSH Past Medical History Medical History BPH (benign prostatic hyperplasia) Diverticulosis Fractured pelvis Inguinal hernia Osteoarthritis Prostate cancer Scoliosis Urethral stricture Surgical History Surgical History H/O colonoscopy H/O prostate biopsy H/O: vasectomy History of hip replacement Bilateral History of laparotomy urethral repair for rupture following trauma many years ago that caused a stricture and required him to catheterize himself for about a year following surgery S/P cystourethroscopy with dilation of urethral stricture Social History Social History Social History: He is and has 3 children. He lives alone. 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 He does smoke some marijuana now.. He does not smoke cigarettes. Code status full code Smoking packs per day: 1 Smoking cigarettes per day: 20.0 Smoking status: Former smoker Smoking end date: 05/05/19 Alcohol intake: current Drinks per week: 6 Substance use: current Substance use type: marijuana Lack of Transportation: No Lack of Food: Sometimes True Current Housing: I Have Housing Concerned About Future Housing: No Difficulty Paying Gas/Electric Bills: YES Difficulty Paying for Meds: YES Currently Unemployed: No Education: Associate Degree Difficulty w/ Childcare or Family Care: No Living arrangements: alone Spiritual care concerns: No Exam Const: General: healthy appearing Nutritional Appearance: well nourished Orientation/consciousness: patient oriented x3 Limitations: no limitations Chest: Chest palpation & inspection: normal inspection of the chest Resp: Effort & Inspection: normal respiratory effort Auscultation: clear to auscultation bilaterally Cardio: Rate: regular rate Rhythm: regular rhythm GI: GI Palp: Yes Soft to palpation Auscultation: normal bowel sounds Rectal Exam: heme positive stool Other: Rectal pain : General: Yes bladder normal to palpation and Yes no CVA tenderness Urinary Catheter: Urinary Catheter: urine cloudy Back/Spine/Pelvis: Back: no CVA tenderness Skin: General skin exam: normal color Rashes: no rashes Neuro: General: patient oriented x3 Cranial nerves: Yes Nystagmus not present Extrem: Gene
[2023-06-28] MEDS: levoFLOXacin 500 MG/D5W 100 ML 500 MG/100 ML BAG 100 MG IVPB (14:33)
[2023-06-28 14:45] VITALS: BP 157/91; PULSE 76; RESP 20; TEMP 37.1; O2SAT 98
[2023-06-28 15:40] LABS: Reflex Lactic Acid Yes or No No Lactic Reflex
--- NOTE | 2023-07-02 13:02 | PC.NURSE ---
final urine culture reviewed. > 100,000 klebsiella pneumonia. pt prescribed levofloxacin. culture is sensitive to this medication. no change in pt plan of care.
== END 2023-06-28 15:34 | disposition home or self-care (01) ==
PROVIDERS: Emergency Provider Emergency Medicine; PCP Family Medicine
DX: N32.1 Vesicointestinal fistula (principal); N39.0 Urinary tract infection, site not specified; N40.0 Benign prostatic hyperplasia without lower urinary tract symptoms; F12.90 Cannabis use, unspecified, uncomplicated; Z87.891 Personal history of nicotine dependence; Z87.19 Personal history of other diseases of the digestive system; Z85.46 Personal history of malignant neoplasm of prostate
CPT/HCPCS: 36415; 74177; 80053; 81001; 82140; 82272; 83605; 83690; 83735; 85025; 85610; 85730; 87077; 87086; 87088; 87186; 96361; 96365; 99284; J1956; J7030; Q9967

== ENCOUNTER 2023-10-14 13:04 | Outpatient (CLI) | payer MEDICARE, MEDICAID, SELFPAY ==
[2023-10-14 14:38] LABS: Prostate Specific Antigen < 0.1 ng/mL (< OR = 4.0)
== END 2023-10-14 13:05 | disposition home or self-care (01) ==
LOC: CHSLAB 13:12
PROVIDERS: PCP Family Medicine
DX: C61 Malignant neoplasm of prostate (principal)
CPT/HCPCS: 36415; 84153

== ENCOUNTER 2023-10-24 13:45 | Outpatient (CLI) | payer MEDICARE, MEDICAID, SELFPAY ==
[2023-10-24 13:57] LABS: Basophils Percent Auto 0.3 % (0.2-1.2); Eosinophils Percent Auto 0.3 % (0-4.4); Hematocrit 37.9 % (42.0-52.0); Hemoglobin 12.3 g/dL (14.0-18.0); Immature Granulocyte Absolute 0.01 K/mm3 (0.00-0.031); Immature Granulocyte Percent A 0.2 % (0-0.5); Lymphocytes Absolute Auto 0.62 K/mm3 (0.9-3.2); Lymphocytes Percent Auto 9.5 % (18.3-44.2); Mean Corpuscular HGB Conc 32.5 g/dl (32-36); Mean Corpuscular Hemoglobin 32.7 pg (26-34); Mean Corpuscular Volume 100.8 fl (80-100); Mean Platelet Volume 8.5 fl (7.4-10.4); Monocytes Absolute Auto 0.4 K/mm3 (0.1-0.6); Monocytes Percent Auto 6.6 % (2.6-8.5); Neutrophils Absolute Auto 5.4 K/mm3 (1.3-6.7); Neutrophils Percent Auto 83.1 % (45.5-73.1); Platelet Count Result 246 k/mm3 (150-375); Red Blood Count 3.76 M/mm3 (4.6-6.20); Red Cell Distribution Width 14.6 % (11.5-14.5); White Blood Count 6.5 K/mm3 (4.5-10.0)
== END 2023-10-24 13:46 | disposition home or self-care (01) ==
LOC: ANHLAB 13:47
PROVIDERS: PCP Family Medicine; Visit Provider Surgery
DX: K57.80 Diverticulitis of intestine, part unspecified, with perforation and abscess without bleeding (principal)
CPT/HCPCS: 36415; 85025

== ENCOUNTER 2023-10-31 08:15 | Outpatient (CLI) | payer MEDICARE, MEDICAID, SELFPAY ==
--- NOTE | ~2023-10-31 | CT_ITS ---
CT of the Abdomen and Pelvis: Indication: Diverticulitis Technique: 2.5 mm axial scans were obtained through the abdomen and pelvis following intravenous adm inistration of 100 cc of Omnipaque 350. Dose reduction technique was used on this scan by utilizing a utomated exposure control and iterative reconstruction technique. The dose-length product (DLP) was 8 06.29 mGy-cm. COMPARISON: 06/28/2023 Findings: Scans through the lung bases are unremarkable. The liver, spleen, pancreas, adrenals and kidneys are within normal limits. Calcified gallstone prese nt. There are atherosclerotic calcifications of the aorta. No lymphadenopathy. There is wall thickening to distal sigmoid colon with diverticular disease. No abscess or free air. N o definite inflammatory change. Small fat-containing umbilical hernia noted. Images through the pelvis degraded by streak artifact from bilateral hip arthroplasty. There is proba rico urinary bladder wall thickening despite partial distention. No pelvic mass evident. No ascites ev ident. Stable densely sclerotic lesion of T12. Impression: Wall thickness; underlying diverticular disease. This could reflect muscular hypertrophy due to diver ticulosis versus mild chronic diverticulitis. Wall thickening of urinary bladder suggests cystitis. Sigmoid colon medially abuts the superior urina ry bladder without definite fistulous this time. No gas in the urinary bladder. Cholelithiasis. Reviewed, dictated and finalized at location . [employer] Impression: Wall thickness; underlying diverticular disease. This could reflect muscular hy pertrophy due to diverticulosis versus mild chronic diverticulitis. Wall thickening of urinary bladder suggests cystitis. Sigmoid colon medially ab uts the superior urinary bladder without definite fistulous this time. No gas i n the urinary bladder. Cholelithiasis.
[2023-10-31 08:36] LABS: Estimated Glomerular Filt Rate > 60
== END 2023-10-31 08:16 | disposition home or self-care (01) ==
PROVIDERS: PCP Family Medicine; Visit Provider Surgery
DX: K57.81 Diverticulitis of intestine, part unspecified, with perforation and abscess with bleeding (principal); N32.1 Vesicointestinal fistula; K80.20 Calculus of gallbladder without cholecystitis without obstruction
CPT/HCPCS: 74177; Q9967

== ENCOUNTER 2023-11-17 01:03 | Day surgery (SDC) | payer MEDICARE, MEDICAID, SELFPAY ==
[2023-11-06 11:32] VITALS: BMI 27.5
--- NOTE | 2023-11-14 08:46 | SUR.PREOP ---
Patient called regarding upcoming procedure. Reviewed preop instructions, appointment times, and procedure prep.
[2023-11-17 12:52] VITALS: BP 138/95; PULSE 61; RESP 16; TEMP 36.4; O2SAT 99; BMI 25.9
--- NOTE | 2023-11-17 12:54 | WPDANESEPPF ---
Anes - Initial Pre Proc Eval Procedure: Operation Date: 11/17/23 14:30 Proposed Procedures p Colonoscopy - Vinayak Seth MD Date/Time: 11/17/23 12:54 Surgeon: Vinayak Seth MD Pre Op Diagnosis: Diverticulitis,Vesicointestinal fistula, Patient Data Age: 68 Gender: M Height: 1.83 m Weight: 92 kg Allergies Allergy/AdvReac Type Severity Reaction Status Date / Time amoxicillin Allergy Swelling Verified 10/16/23 15:27 of Lip/Tongue/Throat Home Medications Medication Instructions Recorded Confirmed Type leuprolide (3 month) 22.5 mg (3 22.5 mg subcut [id number] 09/30/22 11/06/23 History month) subcutaneous syringe tamsulosin 0.4 mg capsule 0.4 mg PO HS 09/30/22 11/06/23 History tramadol 50 mg tablet 50 mg PO Q6H PRN pain #30 tabs 11/10/23 Rx Patient hx anesthesia problems: none Family hx anesthesia problems: none Results Review: All pre-operative results and documents have been reviewed as part of the pre-operative evaluation. [facility] Past Medical History Medical History BPH (benign prostatic hyperplasia) Diverticulosis Fractured pelvis Inguinal hernia Osteoarthritis Prostate cancer Scoliosis Urethral stricture Surgical History Surgical History H/O colonoscopy H/O prostate biopsy H/O: vasectomy History of hip replacement Bilateral History of laparotomy urethral repair for rupture following trauma many years ago that caused a stricture and required him to catheterize himself for about a year following surgery S/P cystourethroscopy with dilation of urethral stricture Social History Social History Social History: He is and has 3 children. He lives alone. 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 He does smoke some marijuana now.. He does not smoke cigarettes. Code status full code Smoking packs per day: 1 Smoking cigarettes per day: 20.0 Years smoked: 30 Smoking pack-years: 30.00 Smoking status: Former smoker Tobacco type: cigarettes Smoking end date: 05/05/19 Alcohol intake: current Drinks per week: 2 Substance use: current Substance use type: marijuana Last use: 2023 Lack of Transportation: No Lack of Food: Sometimes True Current Housing: I Have Housing Concerned About Future Housing: No Difficulty Paying Gas/Electric Bills: YES Difficulty Paying for Meds: YES Currently Unemployed: No Education: Associate Degree Difficulty w/ Childcare or Family Care: No Living arrangements: alone Spiritual care concerns: No Anes - Eval Final PreProcedure Day of Procedure 11/17/23 12:54 Patient weight: normal Heart: regular rate and rhythm Lungs: clear to auscultation Airway: Mallampati scale class II Neurological: alert and oriented Last oral intake: >/= 8 hours ASA classification: III Emergent: no Anesthetic plan: proceed Anesthesia type and monitoring: general GIVS and standard monitoring Results Review: All pre-operative results and documents have been reviewed as part of the pre-operative evaluation. Informed Consent: The patient's anesthetic plan and its attendant risks and benefits were discussed with the patient/family/POA. Questions were solicited and answers provided to the satisfaction of the patient/family/POA.
[2023-11-17] MEDS: LACTATED RINGERS 1,000 ML 150 ML IV CONT (13:05)
--- NOTE | 2023-11-17 13:07 | PM.HPGS ---
History of Present Illness History of Present Illness Consent: Risks, benefits, and alternatives have been discussed and questions answered. Patient agrees to proceed with procedure. Chief complaint: Diverticulitis,Vesicointestinal fistula, Narrative: Malik Morales is a 68 year old male here for colonoscopy, he had diverticulitis and evaluated by Dr Suero- had CT abd/pelvis showed wall thickening of the sigmoid colon suspicious for acute versus chronic diverticulitis, gas in the urinary bladder with some eccentric wall thickening of the urinary bladder abutting the thickened portion of the sigmoid colon which could reflect a colovesical fistula but then recent repeat CT scan showed mild chronic diverticulitis without obvious fistula.?He underwent a colonoscopy on 11/04/22 that showed diverticulosis without perforation and without bleeding, also had TA polyps removed. Still with intermittent rectal bleeding. Patient is waiting to her from colorectal surgeon at [facility]. Review of Systems Review of Systems: All systems reviewed & are unremarkable except as noted in HPI and below PMFSH Past Medical History Medical History (Updated 11/17/23 @ 13:10 by Vinayak Seth MD) Adenomatous colon polyp BPH (benign prostatic hyperplasia) Diverticulosis Fractured pelvis Inguinal hernia Osteoarthritis Prostate cancer Scoliosis Urethral stricture Surgical History Surgical History H/O colonoscopy H/O prostate biopsy H/O: vasectomy History of hip replacement Bilateral History of laparotomy urethral repair for rupture following trauma many years ago that caused a stricture and required him to catheterize himself for about a year following surgery S/P cystourethroscopy with dilation of urethral stricture Social History Social History Social History: He is and has 3 children. He lives alone. 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 He does smoke some marijuana now.. He does not smoke cigarettes. Code status full code Smoking packs per day: 1 Smoking cigarettes per day: 20.0 Years smoked: 30 Smoking pack-years: 30.00 Smoking status: Former smoker Tobacco type: cigarettes Smoking end date: 05/05/19 Alcohol intake: current Drinks per week: 2 Substance use: current Substance use type: marijuana Last use: 2023 Lack of Transportation: No Lack of Food: Sometimes True Current Housing: I Have Housing Concerned About Future Housing: No Difficulty Paying Gas/Electric Bills: YES Difficulty Paying for Meds: YES Currently Unemployed: No Education: Associate Degree Difficulty w/ Childcare or Family Care: No Living arrangements: alone Spiritual care concerns: No Meds Home Medications and Allergies Home Medications Medication Instructions Recorded Confirmed Type leuprolide (3 month) 22.5 mg (3 22.5 mg subcut [id number] 09/30/22 11/17/23 History month) subcutaneous syringe tamsulosin 0.4 mg capsule 0.4 mg PO HS 09/30/22 11/17/23 History tramadol 50 mg tablet 50 mg PO Q6H PRN pain #30 tabs 11/10/23 11/17/23 Rx Allergies Allergy/AdvReac Type Severity Reaction Status Date / Time amoxicillin Allergy Swelling Verified 11/17/23 12:56 of Lip/Tongue/Throat Vital Signs Vital Signs - 24 hr 11/17/23 12:52 Temperature 97.6 F Pulse Rate 61 Respiratory Rate 16 Blood Pressure 138/95 H Pulse Oximetry 99 Oxygen Delivery Room Air Exam Const: General: comfortable and no acute distress HENMT: Face/Nose/Sinus: Normal nares present Eyes: General: appearance normal, both eyes and all related structures Neck: Neck: no JVD Resp: Auscultation: clear to auscultation bilaterally Cardio: Rate: regular rate Rhythm: regular rhythm GI: Inspection: non-distended GI Palp: Yes Soft to palpation Skin: General skin exam: normal color Neuro: Gener
[2023-11-17 13:33] VITALS: BP 122/82; PULSE 67; RESP 24; O2SAT 99
[2023-11-17 13:43] VITALS: BP 139/79; PULSE 66; RESP 16; O2SAT 99
[2023-11-17 13:53] VITALS: BP 145/65; PULSE 68; RESP 23; O2SAT 98
== END 2023-11-17 14:13 | disposition home or self-care (01) ==
PROVIDERS: PCP Family Medicine; Referring Provider Surgery; Visit Provider Internal Medicine Gastroenterology
PROC: 0DJD8ZZ Inspection of Lower Intestinal Tract, Via Natural or Artificial Opening Endoscopic (ICD-10-PCS; CPT 45378; principal; 2023-11-17 14:30)
DX: K57.30 Diverticulosis of large intestine without perforation or abscess without bleeding (principal); N32.1 Vesicointestinal fistula; D12.5 Benign neoplasm of sigmoid colon; K62.6 Ulcer of anus and rectum; K55.20 Angiodysplasia of colon without hemorrhage; K62.7 Radiation proctitis; N40.0 Benign prostatic hyperplasia without lower urinary tract symptoms; M41.9 Scoliosis, unspecified; N35.919 Unspecified urethral stricture, male, unspecified site; F12.90 Cannabis use, unspecified, uncomplicated; Z79.891 Long term (current) use of opiate analgesic; Z98.890 Other specified postprocedural states; Z87.891 Personal history of nicotine dependence; Z86.010 Personal history of colon polyps; Z85.46 Personal history of malignant neoplasm of prostate
CPT/HCPCS: 45385; 45380; 88305; J1100; J2405; J2704; J7120

== ENCOUNTER 2023-12-03 11:36 | Emergency (ER) | payer MEDICARE, MEDICAID, SELFPAY ==
--- NOTE | 2023-12-03 11:39 | ED.MALEGU ---
HPI - Male Genitourinary General Chief complaint: Urogenital-Male Stated complaint: UTI Time Seen by Provider: 12/03/23 11:38 Source: patient Mode of arrival: ambulatory Limitations: no limitations History of Present Illness HPI Narrative: 68-year-old male, with a history of arthritis status post bilateral hip replacement, trauma with urethral rupture status post repair complicated by urethral stricture status post dilatation, prostrate cancer status post radiation, diverticulitis with colovesical fistula with resolution, recurrent urinary tract infection presents to the ER with -- dysuria off and on for the past few days which has gotten worse this morning. No hematuria. this is associated with increased frequency of micturition and urgency of micturition. Patient has a good stream of urine. -- patient has cloudy urine -- suprapubic abdominal pain. no flank pain no fever or chills In view of the diverticulitis and history of colonic polyps the patient had a colonoscopy done on 11/17/2023 which revealed a rectal ulcer which was biopsied. The pathology was noted to be a tubular adenoma. Patient has constant perineal discomfort. MD Complaint: dysuria Onset (ago): day(s) Duration: constant Severity: moderate Quality: aching Relieving factors: none Associated symptoms: Reports denies other symptoms Related Data Home Medications Medication Instructions Recorded Confirmed leuprolide (3 month) 22.5 mg (3 22.5 mg subcut [id number] 09/30/22 11/17/23 month) subcutaneous syringe tamsulosin 0.4 mg capsule 0.4 mg PO HS 09/30/22 11/17/23 Allergies Allergy/AdvReac Type Severity Reaction Status Date / Time amoxicillin Allergy Swelling Verified 12/03/23 11:47 of Lip/Tongue/Throat Review of Systems Review of Systems: All systems reviewed & are unremarkable except as noted in HPI and below Constitutional: Constitutional: Reports as per HPI and Reports no additional constitutional complaints Eyes: Eyes: Reports as per HPI and Reports no additional eye complaints ENT: Reports system reviewed and no additional complaints, except as documented and Reports as per HPI Cardiovascular: Cardiovascular: Reports as per HPI and Reports no additional cardiovascular complaints Respiratory: Respiratory: Reports as per HPI and Reports no additional respiratory complaints Gastrointestinal: Gastrointestinal: Reports as per HPI and Reports no additional gastrointestinal complaints Genitourinary: Genitourinary: Reports dysuria and Reports urinary frequency Musculoskeletal: Musculoskeletal: Reports no additional musculoskeletal complaints Integumentary/Breasts: Skin/Breast: Reports system reviewed and no additional complaints, except as docu Neurologic: Reports system reviewed and no additional complaints, except as documented and Reports as per HPI Psychiatric: Psychiatric: Reports no additional psychiatric complaints and Reports as per HPI Endocrine: Endocrine: Reports no additional endocrine complaints and Reports as per HPI Hematologic/Lymphatic: Hematologic/Lymphatic: Reports no additional hematologic/lymphatic complaints and Reports as per HPI Allergic/Immunologic: Allergic/Immunologic: Reports no additional allergic/immunologic complaints and Reports as per HPI PMFSH Past Medical History Medical History Adenomatous colon polyp BPH (benign prostatic hyperplasia) Diverticulosis Fractured pelvis Inguinal hernia Osteoarthritis Prostate cancer Scoliosis Urethral stricture Surgical History Surgical History H/O colonoscopy H/O prostate biopsy H/O: vasectomy History of hip replacement Bilateral History of laparotomy urethral repair for rupture following trauma many years ago that caused a stricture and required him to catheterize himself for about a year following surgery S/P cystourethroscopy with dilatio
[2023-12-03 11:40] VITALS: BP 153/87; PULSE 71; RESP 18; TEMP 36.6; O2SAT 98
[2023-12-03 12:14] LABS: Bilirubin Urine Negative (Negative); Blood Urine 3+ (Negative); Color Urine Yellow (Yellow); Glucose Urine UA Negative (Negative); Ketones Urine Negative (Negative); Leukocyte Esterase Ur 2+ LEU/UL (Negative); Nitrate Urine Positive (Negative); Protein Urine 2+ (Negative); Specific Grav Ur >= 1.030 (1.010-1.020); Urobilinogen Urine 0.2 mg/dL (0.2-1.0)
[2023-12-03 12:32] LABS: Add Urine Microscopic? YES; Appearance Urine Cloudy (Clear); Bacteria Urine 1+ /hpf; Squamous Epithelial Cell Urine Rare /hpf (Few); WBC Urine >75 /hpf (0-3)
[2023-12-03 12:48] VITALS: BP 148/78; PULSE 72; RESP 18; TEMP 36.7; O2SAT 98
--- NOTE | 2023-12-05 13:47 | PC.NURSE ---
12/05/23 URINE CULTURE POSITIVE FOR E COLI PT SENT HOME ON LEVAQUIN 500MG BID FOR 7 DAYS ANTIBIOTIC ACCEPTABLE PER DR HILLIARD NO FURTHER ORDERS GIVEN
== END 2023-12-03 12:48 | disposition home or self-care (01) ==
PROVIDERS: Emergency Provider Internal Medicine Critical Care Medicine; PCP Family Medicine
DX: N39.0 Urinary tract infection, site not specified (principal); Z85.46 Personal history of malignant neoplasm of prostate; Z92.3 Personal history of irradiation; Z87.19 Personal history of other diseases of the digestive system; Z79.818 Long term (current) use of other agents affecting estrogen receptors and estrogen levels; Z87.891 Personal history of nicotine dependence; F12.90 Cannabis use, unspecified, uncomplicated
CPT/HCPCS: 81001; 87077; 87086; 87088; 87186; 99283

== ENCOUNTER 2024-02-04 11:08 | Outpatient (CLI) | payer MEDICARE, MEDICAID, SELFPAY ==
[2024-02-04 12:00] LABS: Prostate Specific Antigen < 0.1 ng/mL (< OR = 4.0)
== END 2024-02-04 11:09 | disposition home or self-care (01) ==
PROVIDERS: PCP Family Medicine; Visit Provider Radiology Radiation Oncology
DX: C61 Malignant neoplasm of prostate (principal); Z79.818 Long term (current) use of other agents affecting estrogen receptors and estrogen levels; Z92.3 Personal history of irradiation
CPT/HCPCS: 36415; 84153

== ENCOUNTER 2024-05-31 14:50 | Outpatient (CLI) | payer MEDICARE, MEDICAID, SELFPAY ==
[2024-05-31 15:57] LABS: Prostate Specific Antigen < 0.1 ng/mL (< OR = 4.0)
== END 2024-05-31 14:51 | disposition home or self-care (01) ==
LOC: CHSLAB 14:54
PROVIDERS: PCP Family Medicine; Visit Provider Radiology Radiation Oncology
DX: C61 Malignant neoplasm of prostate (principal)
CPT/HCPCS: 36415; 84153

== ENCOUNTER 2024-09-01 11:21 | Outpatient (CLI) | payer MEDICARE, MEDICAID, SELFPAY ==
[2024-09-01 13:58] LABS: Prostate Specific Antigen < 0.1 ng/mL (< OR = 4.0)
== END 2024-09-01 11:22 | disposition home or self-care (01) ==
PROVIDERS: Radiology Radiation Oncology; PCP Family Medicine
DX: C61 Malignant neoplasm of prostate (principal)
CPT/HCPCS: 36415; 84153

== ENCOUNTER 2024-09-20 13:03 | Outpatient (CLI) | payer MEDICARE, MEDICAID, SELFPAY ==
--- NOTE | ~2024-09-20 | DEXA_ITS ---
Bone Density Report Name: ROMY AGUIRRE Age: 69 Sex: Male Ethnicity: White Date of : 1955 Indication: prior fracture; cancer; Referring Provider: UNKNOWN, UNKNOWN Study: Bone densitometry was performed. Exam Date: September 20, 2024 Accession number: [id number] Bone Density: Region BMD T-score Z-score Classification AP Spine(L1-L4) 1.302 1.9 2.7 Normal World Health Organization criteria for BMD impression classify patients as: Normal (T-score at or above -1.0), Osteopenia (T-score between -1.0 and -2.5), or Osteoporosis (T-score at or below -2.5). Clinical Information Provided by Patient: Have had a previous hip or vertebral fracture Has had a low trauma fracture Has used the following medications: HRT (i.e. estrogen/hormone therapy) Has the following medical conditions: Cancer No regular weight bearing exercise Drinks caffeinated beverages Impression: The patient has normal bone mass. The patient has risk factors, including: previous fracture. Discussion: INCREASED RISK OF FRACTURE DUE TO HISTORY OF LOW TRAUMA FRACTURE. The patient's previous fracture puts the patient at high risk of a future fracture. In untreated patients, the risk of osteoporotic fracture increases approximately two-fold for each 1.0 SD decrease in T-score. Low bone density is not the only risk factor for fracture; also consider factors such as patient's age, frailty or poor health, risk of falling, risk of injury, previous osteoporotic fracture, family history of osteoporosis, cigarette smoking, low body weight, etc. Not everyone with a low trauma fracture has osteoporosis; osteomalacia and other metabolic bone disorders should also be considered. Patients who have osteoporosis should be evaluated for specific diseases and conditions (secondary causes) that may cause or contribute to bone loss and fracture risk. National Osteoporosis Foundation (NOF) recommends pharmacologic intervention for patients with a prior low trauma hip or vertebral fracture regardless of BMD T-score. The patient should follow a healthful lifestyle (good nutrition with adequate calcium and vitamin D, and appropriate weight-bearing exercise). Follow-Up: Consider a repeat BMD and Vertebral Fracture Assessment (VFA) exam in 2 years or sooner if medically necessary, to reassess this patient's status. Reported by: PRESTON on 09/20/2024 1:30:00 PM. Reviewed, dictated and finalized at location A.
--- OUTSIDE RECORDS SUMMARY | 2024-09-20 13:45 | XMS_ITS | Encounter Summary ---
Author Organization [facility] Address [address] [place] [address] Phone Care Team Providers Care Ticket Taker Name Role Phone Patel Hartman MD Primary Care Provider [phone] Helio Junior MD Unavailable [phone] Karson Quintero MD Unavailable [phone] Vinayak Seth MD Unavailable [phone] Helio Youssef MD Unavailable [phone] Jabari Whaley MD Unavailable [phone] Nik Franco MD Unavailable Yevgeniy Salinas MD Unavailable Reason for Visit * Reason Comments Medication Refill Encounter Details Date Type Department Care Team (Late st Contact Info) Description 07/25/2024 Refill [facility] Preop/Pacu II [address] [place] [address] Nik Franco MD [address] [address] Medication Refill Social History Tobacco Use Types Packs/Day Years Used Date Smoking Tobacco: Former Cigarettes 1 43 0 1976 - 05/05/2019 Smokeless Tobacco: Never Alcohol Use Standard Drinks/Week Comments Yes 0 (1 standard drink = 0.6 oz pur e alcohol) Socially Sex and Gender Information Value Date Recorded Sex Assigned at Not on file Legal Sex Male 11:28 PM CDT Gender Identity Not on file Sexual Orientation Not on file documented as of this encounter Miscellaneous Notes * Telephone Encounter - Nik Franco MD - 07/29/2024 4:25 PM CST Patient should have completed his antibiotic therapy. NCE TRUER * Telephone Encounter - Michaela Apodaca RN - 07/26/2024 10:14 AM CST Medication failed the protocol, provider to review and approve the medication order if appropriate. Requested Prescriptions Pending Prescriptions Disp Refills sulfamethoxazole-trimethoprim (BACTRIM, SEPTRA) 400-80 MG Tablet [Pharmacy Med Name: SULFAMETHOXAZOLE-TMP SS TABLET] 45 Tablet 0 Sig: Take 1 Tablet by mouth daily for 45 days. There is no refill protocol information for this order NCE TRUER documented in this encounter Plan of Treatment Upcoming Encounters Date Type Department Care Team (Late st Contact Info) Description 09/23/2024 11:15 AM BALANCE TRUER Office Visit [facility] [address] [place] [address] Nik Franco MD [address] [address] 12/09/2024 3:30 PM CDT Office Visit [facility] [address] [place] [id number] Karson Quintero MD [address] [place] [address] Discharge Disposition: Discharged to home or Selfcare 12/09/2024 4:00 PM CDT Clinical Support [facility] [address] [place] [id number] Discharge Disposition: Discharged to home or Selfcare documented as of this encounter Visit Diagnoses Not on filedocumented in this encounter Care Teams Ticket Taker Relationship Specialty Start Date End Date Patel Hartman MD [address] [place] [address] PCP - General Family Medicine 04/17/22 Helio Junior MD [address] [place] [address] Consulting Physician Urology 04/22/22 Karson Quintero MD [address] [place] [address] Consulting Physician Radiation Oncology 04/22/22 Vinayak Seth MD [address] [place] [address] Consulting Physician Gastroenterology 12/16/23 Helio Youssef MD [address] [facility] COLON/RECTAL, [address] [address] Consulting Physician Colon and Rectal Surgery 12/17/23 Jabari Whaley MD [address] [address] Consulting Physician Urology 03/16/24 Nik Franco MD [address] [address] Consulting Physician Urology 04/16/24 Yevgeniy Salinas MD [address] [address] Consulting Physician Colon and Rectal Surgery 09/08/24 documented as of this encounter
--- OUTSIDE RECORDS SUMMARY | 2024-09-20 13:45 | XMS_ITS ---
Author Organization [facility] Address [address] [place] [address] Phone Care Team Providers Care Pressing Machine Tender Name Role Phone Patel Hartman MD Primary Care Provider [phone] Helio Junior MD Unavailable [phone] Karson Quintero MD Unavailable [phone] Vinayak Seth MD Unavailable [phone] Helio Youssef MD Unavailable [phone] Jabari Whaley MD Unavailable [phone] Nik Franco MD Unavailable Yevgeniy Salinas MD Unavailable Active Problems Problem Noted Date Diagnosed Date Pelvic pain 09/08/2024 Rectal ulcer 09/08/2024 Recurrent UTI (urinary tract infection) 03/16/20 24 History of therapeutic radiation 07/29/2022 Overview (07/29/2022): Prostate and pelvic lymph node radiotherapy, 70 Gy to the prostate and 50.40 Gy to the clinically uninvolved pelvic lymph nodes in 28 fractions. Bladder atony 04/26/2022 Lower urinary tract symptoms (LUTS) 04/26/2022 Prostate cancer 04/17/2022 Cancer Staging:Clinical stage from 04/17/2022:Stage IIIB(cT3a, cN0, cM0, PSA: 20.3, Grade Group: 2) - Signed by Karson Quintero MD on 04/26/2022 Overview (09/08/2024): By NCCN criteria clinically localized very high risk group prostate cancer. Very high risk group secondary to 2 high risk group features, PSA greater than 20 and T3a disease on ELINA. By AJCC he had clinical stage IIIB (cT3a, cN0, cM0, PSA: 20.3, Grade Group 2) disease. At presentation he had significant LUTS and bladder atony and was intermittent catheterization dependent. Histologic confirmation obtained at the time of prostate biopsies 01/08/2022. He was prescribed long-term ADT with a neoadjuvant start and received leuprolide 22.5 mg 04/24/2022. When he returned he was no longer having to self-catheterize himself in order to urinate. He began prostate and pelvic lymph node radiotherapy 06/17/2022 and completed 07/29/2022 receiving 70 Gy to the prostate and 50.40 Gy to the clinically uninvolved pelvic lymph nodes in 28 fractions. He received his 10th leuprolide 22.5 mg injection 09/08/2024. Androgen deprivation therapy Overview (07/29/2022): Long-term ADT initiated with leuprolide 22.5 mg injection 04/24/2022 and 2nd leuprolide 22.5 mg injection 07/26/2022. Current Treatment and Therapy Plans SUPPORT - LEUPROLIDE* Plan Start Date:04/23/2022 Plan Provider:Karson Quintero MD Linked Problems Prostate cancer (HCC) Treatment Medications Current Day (Day 1, Cycle 12 - Planned for 11/03/2024) No medications scheduled. No medications schedul ed. Past Treatment and Therapy Plans No past plan information found. Current Radiation Episodes * IGRT: Bilateral ProstateOverview* First Treatment Date Latest Treatment Date Treatment Site Technique Goal Episode Provider 06/17/2022 07/29/2022 Bilateral Prostate IGRT Curative * Linked Problems Treatment Courses* Course C1 06/17/2022 - 07/29/2022 Treatment Period Fraction Dose Fractions Total Dose Plans Planned [id number] 06/17/2022 - 07/29/2022 250 cGy 7 ,000 cGy Reference Points Delivered PSVN_PRP 06/17/2022 - 07/29/2022 ? ? 7,000 cGy Resolved Problems Problem Noted Date Diagnosed Date Resolved Date Bladder outlet obstruction 04/26/2022 0 08/30/2022 Intermittent self-catheterization of bladder 2 07/01/2022 Encounter for monitoring and rogen deprivation therapy 07/01/2022 Encounter for radiotherapy 0 08/30/2022 Vitreous floaters of both eyes 07/29/2022 Acute radiation proctitis Adverse effect of radiation 08/30/2022
--- OUTSIDE RECORDS SUMMARY | 2024-09-20 13:45 | XMS_ITS | Clinical Summary ---
Author Organization [facility] Address [address] [place] [address]. [place], [place] [id number] [place] [address] Care Team Providers Care Asset Protection Assistant Name Role Phone Teena Feliciano NP Primary Care Provider [phone] Laith Tong MD Unavailable [phone] Allergies No known active allergies Medications docusate sodium 100 MG capsule Take 100 mg by mouth daily. Active hydroCHLOROthia zide 12.5 MG tablet Take 12.5 mg by mouth every morning. Active polyethylene glycol (MIRALAX) 17 GM/SCOOP powder Take 17 g by mouth daily. Dissolve powder in 240 mL water Active warfarin 2.5 MG tablet Take 2.5 mg by mouth daily. Active Social History Tobacco Use Types Packs/Day Years Used Date Smoking Tobacco: Never Sex and Gender Information Value Date Recorded Sex Assigned at Not on file Legal Sex Male 9:41 PM CDT Gender Identity Not on file Sexual Orientation Not on file Last Filed Vital Signs Vital Sign Reading Time Taken Comments Blood Pressure 119/75 11/02/2015 2:40 PM CERTIFIED DIALYSIS TECHNICIAN Pulse - - Temperature - - Respiratory Rate - - Oxygen Saturation - - Inhaled Oxygen Concentration - - Weight 104.3 kg (230 lb) 11/02/2015 2:40 PM CERTIFIED DIALYSIS TECHNICIAN Height 182.9 cm (6') 11/02/2015 2:40 PM CERTIFIED DIALYSIS TECHNICIAN Body Mass Index 31.19 11/02/2015 2:40 PM CERTIFIED DIALYSIS TECHNICIAN Plan of Treatment Health Maintenance Due Date Last Done Comments Colorectal Cancer Screening Colonoscopy (10 Years) 1957 Hepatitis C 1975 DTaP, Tdap and Td Vaccines ( 1 - Tdap) 1976 Zoster Vaccines (1 of 2) 2007 Pneumococcal Vaccine: 65+ Ye ars (1 of 1 - PCV) 2022 COVID-19 Vaccine (1 - 2023-2 5 season) 2024 Influenza Adult (#1) 2024 RSV Immunization or 60+ Years (1 - 1-dose 75+ series) 2032 Meningococcal B Vaccine Aged Out No l onger eligible based on patient's age to complete this topic Meningococcal Vaccine Aged Out No tonya nova eligible based on patient's age to complete this topic RSV Immunizations Under 20 Months Aged Out No longer eligible based on patient's age to complete this topic Care Teams Asset Protection Assistant Relationship Specialty Start Date End Date Teena Feliciano NP [address] [address] PCP - General NURSE PRACTITIONER 12/26/21 Laith Tong MD [address] [address] Physician INTERVENTIONAL CARDIOLOGY 12/26/21
--- OUTSIDE RECORDS SUMMARY | 2024-09-20 13:45 | XMS_ITS | Clinical Summary ---
Author Organization [facility] Address #[address] [place] [address] Phone Care Team Providers Care Manager Materials Management Name Role Phone Patel Hartman MD Primary Care Provider Helio Junior MD Unavailable [phone] Karson Quintero MD Unavailable [phone] Vinayak Seth MD Unavailable + [phone] Helio Youssef MD Unavailable [phone] Jabari Whaley MD Unavailable [phone] Nik Franco MD Unavailable Yevgeniy Salinas MD Unavailable Allergies Active Allergy Reactions Criticality Noted Date Comments Fentanyl Vomiting 04/20/2024 Reaction: vomiting, Other-Environmental Allergen (Not Found In Search) Runny Nose 04/17/2022 Seasonal allergy Medications hydrocortisone (ANUSOL-HC) 25 MG Suppository 25 mg by Rectal route every 12 hours. For rectal irritation and urgency 60 Suppository 1 022 Active sucralfate (CARAFATE) 1 GM TabletIndicati ons:Prostate cancer (HCC),History of therapeutic radiation,Radi ation proctitis Take 1 Tablet by mouth 3 times daily. 270 Tablet 023 Active Additional Information Patient not taking.Reported on 09/08/2024 tamsulosin (FLOMAX) 0.4 MG CapsuleIndicat ions:Lower urinary tract symptoms (LUTS),Prostat e cancer (HCC) TAKE 1 CAPSULE BY MOUTH DAILY AFTER DINNER FOR URINARY FLOW 90 Capsule 3 024 Active sulfamethoxazo le-trimethopri m (BACTRIM, SEPTRA) 400-80 MG Tablet Take 1 Tablet by mouth daily for 45 days. 45 Tablet 025 2024 Active diazePAM (VALIUM) 5 MG TabletIndicati ons:Pelvic pain,Rectal ulcer 1 -2 tablets 3 times a day 90 Tablet 025 Active sulfamethoxazo le-trimethopri m (BACTRIM, SEPTRA) 400-80 MG Tablet Take 1 Tablet by mouth daily for 45 days. 45 Tablet 024 2024 Discontinued diazePAM (VALIUM) 5 MG TabletIndicati ons:Pelvic pain,Rectal ulcer 1 -2 tablets 3 times a day 90 Tablet 024 2024 Discontinued(R eorder) diazePAM (VALIUM) 5 MG TabletIndicati ons:Pelvic pain,Rectal ulcer 1 -2 tablets 3 times a day 90 Tablet 025 2024 Discontinued(R eorder) Active Problems Problem Noted Date Diagnosed Date [...] and 2nd leuprolide 22.5 mg injection 07/26/2022. Resolved Problems Problem Noted Date Diagnosed Date Resolved Date Bladder outlet obstruction 04/26/2022 0 08/30/2022 Intermittent self-catheterization of bladder 2 07/01/2022 Encounter for monitoring and rogen deprivation therapy 07/01/2022 Encounter for radiotherapy 0 08/30/2022 Vitreous floaters of both eyes 07/29/2022 Acute radiation proctitis Adverse effect of radiation 08/30/2022 Encounters Date Type Department Care Team Description 09/08/2024 1:30 PM BIODIESEL PRODUCTION TECHNICIAN Clinical Support [facility] Oncology Services [address] [place] [address] Karson Quintero MD Prostate cancer (HCC) (Primary Dx); Pelvic pain; Rectal ulcer Discharge Disposition: Discharged to home or Selfcare 09/08/2024 1:00 PM BIODIESEL PRODUCTION TECHNICIAN Office Visit [facility] Oncology Services [address] [place] [address] Karson Quintero MD Prostate cancer (HCC) (Primary Dx); Androgen deprivation therapy; History of therapeutic radiation; Rectal ulcer; Pelvic pain; Bladder atony; Lower urinary tract symptoms (LUTS); Recurrent UTI (urinary tract infection); Radiation proctitis; Adverse effect of radiation, sequela Discharge Disposition: Discharged to home or Selfcare 09/08/2024 [facility] [address] [place] [address] Karson Quintero MD 09/08/2024 Travel 08/27/2024 [facility] 1 [place] [address] Nik Franco MD Medication Refill 08/05/2024 [facility] [address] [place] [address] Karson Quintero MD Medication Refill 07/25/2024 [facility] 1 [place] [address] Nik Franco MD Medication Refill 07/25/2024 [facility] [address] [place] [address] Karson Quintero MD Medication Refill 06/23/2024 [facility] 1 [place] [address] Nik Franco MD Medication Refill from Last 3 Months Family History Medical History Relation Name Comments Hypertension Father Prostate Cancer Father Did not from cancer.Had shot only as treatment. Hypertension Mother Other-comment Mother PACEMAKER Relation Name Status Comments Brother Alive Father Mother Sister Alive Social History Tobacco Use Types Packs/Day Years Used Date Smoking Tobacco: Former Cigarettes 1 43 0 1976 - 05/05/2019 Smokeless Tobacco: Never Tobacco Cessation:Counseling Given: Not Answered Alcohol Use Standard Drinks/Week Comments Yes 0 (1 standard drink = 0.6 oz pur e alcohol) Socially Sex and Gender Information Value Date Recorded Sex Assigned at Not on file Legal Sex Male 11:28 PM CDT Gender Identity Not on file Sexual Orientation Not on file Last Filed Vital Signs Vital Sign Reading Time Taken Comments Blood Pressure 145/85 09/08/2024 1:06 PM BIODIESEL PRODUCTION TECHNICIAN Pulse 67 09/08/2024 1:06 PM BIODIESEL PRODUCTION TECHNICIAN Temperature 36.6 ??C (97.9 ??F) 09/08/2024 1:06 PM CS T Respiratory Rate 19 06/17/2024 10:48 AM CDT Oxygen Saturation 98% 09/08/2024 1:06 PM BIODIESEL PRODUCTION TECHNICIAN Inhaled Oxygen Concentration - - Weight 80.4 kg (177 lb 4.8 oz) 09/08/2024 1:06 P M BIODIESEL PRODUCTION TECHNICIAN Height 182.9 cm (6') 09/08/2024 1:06 PM BIODIESEL PRODUCTION TECHNICIAN Body Mass Index 24.05 09/08/2024 1:06 PM BIODIESEL PRODUCTION TECHNICIAN Plan of Treatment Upcoming Encounters Date Type Department Care Team (Late st Contact Info) Description 09/23/2024 11:15 AM BIODIESEL PRODUCTION TECHNICIAN Office Visit [facility] UR[facility]Y #[address] [place] [address] Nik Franco MD [address] [address] 12/09/2024 3:30 PM CDT [facility] [address] [place] [address] Karson Quintero MD [address] [place] [address] Discharge Disposition: Discharged to home or Selfcare 12/09/2024 4:00 PM CDT [facility] [address] [place] [address] Discharge Disposition: Discharged to home or Selfcare Health Maintenance Due Date Last Done Comments Hepatitis C Virus (HCV) Screening 1955 TdaP Immunization 1955 Pneumococcal Immunization (50+ years) (1 of 2 - PCV) 1976 Zoster Immunization (1 of 2) 1976 Colonoscopy 2002 Colorectal Cancer Screening 2002 Cologuard 2007 Immunochemical Fecal Occult Blood 2007 Lung Cancer Screening 2007 Respiratory Syncytial Virus (RSV) Immunization (Adult) (1 - Risk 60-74 years 1-dose series) 2017 SARS-COV-2 Immunization (3 - Moderna risk series) 01/12/2021 12/15/2020, 11/17/2020 AAA Screening Ultrasound 2022 Influenza Immunization (#1) 2024 PSA Discussion Completed 09/01/2024, 01/23, 10/14/2023, Additional history exists Hepatitis B Immunization Aged Out No longer eligible based on patient's age to complete this topic Meningococcal Immunization (ACWY) Aged Out No longer eligible based on patient's age to complete this topic Rotavirus Immunization Aged Out No lo nger eligible based on patient's age to complete this topic Procedures Procedure Name Priority Date/Time Associated Diagnosis Comments PSA DIAGNOSTIC,TOTAL Routine 09/01/2024 12:00 AM BIODIESEL PRODUCTION TECHNICIAN from Last 3 Months Results * PSA DIAGNOSTIC,TOTAL (09/01/2024 12:00 AM BIODIESEL PRODUCTION TECHNICIAN) Prostatic Specific Antigen, Free 0.09 SCAN Blood us Karson Quintero MD CHEMISTRY ORDERABLES Fi nal Result SCAN from Last 3 Months Insurance MEDICAID [place]ARE Care Teams Manager Materials Management Relationship Specialty Start Date End Date Patel Hartman MD [address] [place] [address] PCP - General Family Medicine 04/17/22 Helio Junior MD [address] [place] [address] Consulting Physician Urology 04/22/22 Karson Quintero MD [address] [place] [address] Consulting Physician Radiation Oncology 04/22/22 Vinayak Seth MD [address] [place] [address] Consulting Physician Gastroenterology 12/16/23 Helio Youssef MD [address] [facility] DIV SURG COLON/RECTAL, [facility] [address] [place] [address] Consulting Physician Colon and Rectal Surgery 12/17/23 Jabari hWaley MD #2 [facility] [address] [place] [address] Consulting Physician Urology 03/16/24 Nik Franco MD #2 [facility] [address] [place] [address] Consulting Physician Urology 04/16/24 Yevgeniy Salinas MD #2 [facility] [address] [place] [address] Consulting Physician Colon and Rectal Surgery 09/08/24
--- OUTSIDE RECORDS SUMMARY | 2024-09-20 13:45 | XMS_ITS | Encounter Summary ---
Author Organization [facility] Address [address] [place] [address] Phone Care Team Providers Care Public Health Outreach Worker Name Role Phone Patel Hartman MD Primary Care Provider [phone] Helio Junior MD Unavailable [phone] Karson Quintero MD Unavailable [phone] Vinayak Seth MD Unavailable [phone] Helio Youssef MD Unavailable [phone] Jabari Whaley MD Unavailable [phone] Nik Franco MD Unavailable Yevgeniy Salinas MD Unavailable Reason for Visit * Reason Comments Medication Refill Encounter Details Date Type Department Care Team (Late st Contact Info) Description 08/27/2024 Refill [facility] Preop/Pacu II 1 [place] [address] Nik Franco MD #[address] [address] Medication Refill Social History Tobacco Use Types [...] on file documented as of this encounter Plan of Treatment Upcoming Encounters Date Type Department Care Team (Late st Contact Info) Description 09/23/2024 11:15 AM PEN RULER OPERATOR Office Visit [facility] UR[facility]Y #[address] [place] [address] Nik Franco MD #[address] [address] 12/09/2024 3:30 PM CDT Office Visit [facility] Oncology Services [address] [place] [address] Karson Quintero MD [address] [place] [address] Discharge Disposition: Discharged to home or Selfcare 12/09/2024 4:00 PM CDT Clinical Support [facility] Oncology Services [address] [place] [address] Discharge Disposition: Discharged to home or Selfcare documented as of this encounter Visit Diagnoses Not on filedocumented in this encounter Care Teams Public Health Outreach Worker Relationship Specialty Start Date End Date Patel Hartman MD [address] [place] [address] PCP - General Family Medicine 04/17/22 Helio Junior MD [address] [place] [address] Consulting Physician Urology 04/22/22 Karson Quintero MD [address] [place] [address] Consulting Physician Radiation Oncology 04/22/22 Vinayak Seth MD [address] [place] [address] Consulting Physician Gastroenterology 12/16/23 Helio Youssef MD [address] [facility] DIV SURG COLON/RECTAL, [facility] [address] [place] [address] Consulting Physician Colon and Rectal Surgery 12/17/23 Jabari Whaley MD #2 [facility] [address] [place] [address] Consulting Physician Urology 03/16/24 Nik Franco MD #2 [facility] [address] [place] [address] Consulting Physician Urology 04/16/24 Yevgeniy Salinas MD #2 [facility] [address] [place] [address] Consulting Physician Colon and Rectal Surgery 09/08/24 documented as of this encounter
== END 2024-09-20 13:04 | disposition home or self-care (01) ==
LOC: CHSIMG 13:06
PROVIDERS: PCP Family Medicine
DX: C61 Malignant neoplasm of prostate (principal); Z79.818 Long term (current) use of other agents affecting estrogen receptors and estrogen levels
CPT/HCPCS: 77080

== ENCOUNTER 2024-11-30 11:04 | Outpatient (CLI) | payer MEDICARE, MEDICAID, SELFPAY ==
[2024-11-30 12:19] LABS: Prostate Specific Antigen < 0.1 ng/mL (< OR = 4.0)
--- OUTSIDE RECORDS SUMMARY | 2024-11-30 12:40 | XMS_ITS | Encounter Summary ---
Author Organization [facility] Address [address] [place] [address] Phone Care Team Providers Care Embroidery Worker Name Role Phone Patel Hartman MD Primary Care Provider [phone] Helio Junior MD Unavailable [phone] Karson Quintero MD Unavailable [phone] Vinayak Seth MD Unavailable [phone] Helio Youssef MD Unavailable [phone] Jabari Whaley MD Unavailable [phone] Nik Franco MD Unavailable Yevgeniy Salinas MD Unavailable Reason for Visit * Reason Comments Medication Refill Encounter Details Date Type Department Care Team (Late st Contact Info) Description 10/11/2024 Refill [facility] Preop/Pacu II 1 [place] [address] Nik Franco MD #[address] [address] Medication Refill Social History Tobacco Use Types [...] Care Team (Late st Contact Info) Description 12/01/2024 11:45 AM CDT Office Visit [facility] Medical [facility] - General Surgery [facility] #2 [facility] [address] [place] [address] Karson Quintero MD [address] [place] [address] Yevgeniy Salinas MD #[address] [address] 12/09/2024 3:30 PM CDT Office Visit [facility] [place] Oncology Services [address] [place] [address] Karson Quintero MD [address] [place] [address] Discharge Disposition: Discharged to home or Selfcare 12/09/2024 4:00 PM CDT Clinical Support [facility] Oncology Services [address] [place] [address] Discharge Disposition: Discharged to home or Selfcare 12/23/2024 11:15 AM CDT Office Visit [facility] UR[facility]Y #[address] [place] [address] Nik Franco MD #2 [facility] [address] [place] [address] documented as of this encounter Visit Diagnoses Not on filedocumented in this encounter Care Teams Embroidery Worker Relationship Specialty Start Date End Date Patel Hartman MD [address] [place] [address] PCP - General Family Medicine 04/17/22 Helio Junior MD [address] [place] [address] Consulting Physician Urology 04/22/22 Karson Quintero MD [address] [place] [address] Consulting Physician Radiation Oncology 04/22/22 Vinayak Seth MD [address] [place] [address] Consulting Physician Gastroenterology 12/16/23 Helio Youssef MD [address] [facility] DIV SURG COLON/RECTAL, [facility] [address], [place] [address] Consulting Physician Colon and Rectal Surgery 12/17/23 Jabari Whaley MD #[address] [address] Consulting Physician Urology 03/16/24 Nik Franco MD #[address] [address] Consulting Physician Urology 04/16/24 Yevgeniy Salinas MD #[address] [address] Consulting Physician Colon and Rectal Surgery 09/08/24 documented as of this encounter
--- OUTSIDE RECORDS SUMMARY | 2024-11-30 12:40 | XMS_ITS ---
Author Organization [facility] Address #[address] [place] [address] Phone Care Team Providers Care Operations Liaison Name Role Phone Patel Hartman MD Primary Care Provider Helio Junior MD Unavailable [phone] Karson Quintero MD Unavailable [phone] Vinayak Seth MD Unavailable [phone] Helio Youssef MD Unavailable [phone] Jabari Whaley MD Unavailable [phone] Nik Franco MD Unavailable Yevgeniy Salinas [...] Reference Points Delivered PSVN_PRP 06/17/2022 - 07/29/2022 7,000 cGy Resolved Problems Problem Noted Date Diagnosed Date Resolved Date Bladder outlet obstruction 04/26/2022 0 08/30/2022 Intermittent self-catheterization of bladder 2 07/01/2022 Encounter for monitoring and rogen deprivation therapy 07/01/2022 Encounter for radiotherapy 0 08/30/2022 Vitreous floaters of both eyes 07/29/2022 Acute radiation proctitis Adverse effect of radiation 08/30/2022
--- OUTSIDE RECORDS SUMMARY | 2024-11-30 12:40 | XMS_ITS | Encounter Summary ---
Author Organization [facility] Address [address] [place] [address] Phone Care Team Providers Care Alcoholism Worker Name Role Phone Patel Hartman MD Primary Care Provider [phone] Helio Junior MD Unavailable [phone] Karson Quintero MD Unavailable [phone] Vinayak Seth MD Unavailable [phone] Helio Youssef MD Unavailable [phone] Jabari Whaley MD Unavailable [phone] Nik Franco MD Unavailable Yevgeniy Salinas MD Unavailable Reason for Visit * Reason Comments Medication Refill Encounter Details Date Type Department Care Team (Late st Contact Info) Description 08/27/2024 Refill [facility] Preop/Pacu II 1 [place] [address] Nik Franco MD #[address] [address] Medication Refill Social History Tobacco Use Types [...] Description 12/01/2024 11:45 AM CDT Office Visit [facility] Medical [facility] - General Surgery [facility] #2 [facility] [address] [place] [address] Karson Quintero MD [address] [place] [address] Yevgeniy Salinas MD #[address] [address] 12/09/2024 3:30 PM CDT Office Visit [facility] [place] Oncology Services [address] [place] [address] Karson Quintero MD [address] [place] [address] Discharge Disposition: Discharged to home or Selfcare 12/09/2024 4:00 PM CDT Clinical Support [facility] Oncology Services [address] [place] [address] Discharge Disposition: Discharged to home or Selfcare 12/23/2024 11:15 AM CDT Office Visit [facility] UR[facility]Y #[address] [place] [address] Nik Franco MD #2 [facility] [address] [place] [address] documented as of this encounter Visit Diagnoses Not on filedocumented in this encounter Care Teams Alcoholism Worker Relationship Specialty Start Date End Date Ptael Hartman MD [address] [place] [address] PCP - General Family Medicine 04/17/22 Helio Junior MD [address] [place] [address] Consulting Physician Urology 04/22/22 Karson Quintero MD [address] [place] [address] Consulting Physician Radiation Oncology 04/22/22 Vinayak Seth MD [address] [place] [address] Consulting Physician Gastroenterology 12/16/23 Helio Youssef MD [address] [facility] DIV SURG COLON/RECTAL, [email or web address] [address] [address] Consulting Physician Colon and Rectal Surgery 12/17/23 Jabari Whaley MD #[address] [address] Consulting Physician Urology 03/16/24 Nik Franco MD #[address] [address] Consulting Physician Urology 04/16/24 Yevgeniy Salinas MD #[address] [address] Consulting Physician Colon and Rectal Surgery 09/08/24 documented as of this encounter
--- OUTSIDE RECORDS SUMMARY | 2024-11-30 12:40 | XMS_ITS | Encounter Summary ---
Author Organization [facility] Address [address] [place] [address] Phone Care Team Providers Care Senior Sql Server Dba Name Role Phone Patel Hartman MD Primary Care Provider [phone] Helio Junior MD Unavailable [phone] Karson Quintero MD Unavailable [phone] Vinayak Seth MD Unavailable [phone] Helio Youssef MD Unavailable [phone] Jabari Whaley MD Unavailable [phone] Nik Franco MD Unavailable Yevgeniy Salinas MD Unavailable Reason for Visit * Reason Comments Medication Refill Encounter Details Date Type Department Care Team (Late st Contact Info) Description 07/25/2024 Refill [facility] Preop/Pacu II 1 [place] [address] Nik Franco MD #[address] [address] Medication Refill Social History Tobacco Use Types [...] Patient should have completed his antibiotic therapy. NESS SUPPORT LIAISON * Telephone Encounter - Michaela Apodaca RN [...] no refill protocol information for this order NESS SUPPORT LIAISON documented in this encounter Plan of Treatment Upcoming Encounters Date Type Department Care Team (Late st Contact Info) Description 12/01/2024 11:45 AM CDT Office Visit [facility] Medical [facility] General Surgery [facility] #[address] [address] Karson Quintero MD [address] [place] [address] Yevgeniy Salinas MD #[address] [address] 12/09/2024 3:30 PM CDT Office Visit [facility] Oncology Services [address] [place] [address] Karson Quintero MD [address] [place] [address] Discharge Disposition: Discharged to home or Selfcare 12/09/2024 4:00 PM CDT Clinical Support [facility] Oncology Services [address] [place] [address] Discharge Disposition: Discharged to home or Selfcare 12/23/2024 11:15 AM CDT Office Visit [facility] UROLOGY #[address] [place] [address] Nik Franco MD #[address] [address] documented as of this encounter Visit Diagnoses Not on filedocumented in this encounter Care Teams Senior Sql Server Dba Relationship Specialty Start Date End Date Patel Hartman MD [address] [place] [address] PCP - General Family Medicine 04/17/22 Helio Junior MD [address] [place] [address] Consulting Physician Urology 04/22/22 Karson Quintero MD [address] [place] [address] Consulting Physician Radiation Oncology 04/22/22 Vinayak Seth MD [address] [place] [address] Consulting Physician Gastroenterology 12/16/23 Helio Youssef MD 49[address] [facility] DIV SURG COLON/RECTAL, [facility] [address] [address] Consulting Physician Colon and Rectal Surgery 12/17/23 Jabari Whaley MD #2 [facility] [address] [place] [address] Consulting Physician Urology 03/16/24 Nik Franco MD #2 [facility] [address] [place] [address] Consulting Physician Urology 04/16/24 Yevgeniy Salinas MD #[address] [facility] [address] [place] [address] Consulting Physician Colon and Rectal Surgery 09/08/24 documented as of this encounter
--- OUTSIDE RECORDS SUMMARY | 2024-11-30 12:40 | XMS_ITS | Clinical Summary ---
Author Organization [facility] Address [address] [place] [address] Care Team Providers Care Stage Director Name Role Phone Teena Feliciano NP Primary Care Provider [phone] Laith Tong MD Unavailable [phone] Allergies No known active allergies Medications docusate [...] Comments Blood Pressure 119/75 11/02/2015 2:40 PM OFFICE ADMINISTRATOR Pulse - - Temperature - - Respiratory Rate - - Oxygen Saturation - - Inhaled Oxygen Concentration - - Weight 104.3 kg (230 lb) 11/02/2015 2:40 PM OFFICE ADMINISTRATOR Height 182.9 cm (6') 11/02/2015 2:40 PM OFFICE ADMINISTRATOR Body Mass Index 31.19 11/02/2015 2:40 PM OFFICE ADMINISTRATOR Plan of Treatment Health Maintenance Due Date Last Done Comments Colorectal Cancer Screening Colonoscopy (10 Years) 1957 Hepatitis C 1975 DTaP, Tdap and Td Vaccines ( 1 - Tdap) 1976 Zoster Vaccines (1 of 2) 2007 Pneumococcal Vaccine: 65+ Ye ars (1 of 1 - PCV) 2022 COVID-19 Vaccine (1 - 2023-2 5 season) 2024 RSV Immunization or 60+ Years (1 [...] age to complete this topic Care Teams Stage Director Relationship Specialty Start Date End Date Teena Feliciano NP [address] [facility] [address] [place] [address] PCP - General NURSE PRACTITIONER 12/26/21 Laith Tong MD [address] [facility] [address] [address] Physician INTERVENTIONAL CARDIOLOGY 12/26/21
--- OUTSIDE RECORDS SUMMARY | 2024-11-30 12:40 | XMS_ITS | Clinical Summary ---
Author Organization [facility] Address [address] [place] [address] Phone Care Team Providers Care Printing Pressman Name Role Phone Patel Hartman MD Primary Care Provider Helio Junior MD Unavailable [phone] Kasron Quintero MD Unavailable [phone] Vinayak Seth MD Unavailable + [phone] Helio Youssef MD Unavailable [phone] Jabari Whaley MD Unavailable [phone] Nik Franco MD Unavailable Yevgeniy Salinas MD [...] URINARY FLOW 90 Capsule 3 024 Active diazePAM (VALIUM) 5 MG TabletIndicati ons:Pelvic pain,Rectal ulcer TAKE 1-2 TABLETS BY MOUTH 3 TIMES A DAY 90 Tablet 025 Active diazePAM (VALIUM) 5 MG TabletIndicati ons:Pelvic pain,Rectal ulcer 1 -2 TABLETS 3 TIMES A DAY 90 Tablet 025 2024 Discontinued Active Problems Problem Noted Date Diagnosed Date Pelvic pain 09/08/2024 Rectal ulcer 09/08/2024 Recurrent UTI (urinary tract infection) 03/16/20 History of therapeutic radiation 07/29/2022 Overview (07/29/2022): [...] Encounters Date Type Department Care Team Description 11/25/2024 [facility]phone [facility] [address] [place] [address] Karson Quintero MD 11/17/2024 Documentation Only [facility] [address] [place] [address] Karson Quintero MD 11/08/2024 Refill [facility] [address] [place] [address] Karson Quintero MD Medication Refill 10/11/2024 [facility] [address] [place] [address] Nik Franco MD Medication Refill 10/06/2024 Refill [facility] [address] [place] [address] Karson Quintero MD Medication Refill 09/30/2024 Results Follow-Up [facility] [address] [place] [address] Nik Franco MD 09/23/2024 11:15 AM INSTITUTION DIRECTOR Office Visit [facility] [address] [place] [address] Nik Franco MD Recurrent UTI (urinary tract infection) (Primary Dx); Prostate cancer (HCC) Discharge Disposition: Discharged to home or Selfcare 09/23/2024 Travel 09/08/2024 1:30 PM INSTITUTION DIRECTOR Clinical Support [facility] Oncology Services [address] [place] [address] Karson Quintero MD Prostate cancer (HCC) (Primary Dx); Pelvic pain; Rectal ulcer Discharge Disposition: Discharged to home or Selfcare 09/08/2024 1:00 PM INSTITUTION DIRECTOR Office Visit [facility] Oncology Services [address] [place] [address] Karson Quintero MD Prostate cancer (HCC) (Primary Dx); Androgen deprivation therapy; History of therapeutic radiation; Rectal ulcer; Pelvic pain; Bladder atony; Lower urinary tract symptoms (LUTS); Recurrent UTI (urinary tract infection); Radiation proctitis; Adverse effect of radiation, sequela Discharge Disposition: Discharged to home or Selfcare 09/08/2024 Telephone [facility] [address] [place] [address] Karson Quintero MD 09/08/2024 Travel from Last 3 Months Family History Medical [...] Sign Reading Time Taken Comments Blood Pressure 167/77 09/23/2024 11:04 AM INSTITUTION DIRECTOR Pulse 97 09/23/2024 11:04 AM INSTITUTION DIRECTOR Temperature 36.6 C (97.9 F) 09/08/2024 1:06 PM INSTITUTION DIRECTOR Respiratory Rate 20 09/23/2024 11:04 AM INSTITUTION DIRECTOR Oxygen Saturation 94% 09/23/2024 11:04 AM INSTITUTION DIRECTOR Inhaled Oxygen Concentration - - Weight 81.6 kg (180 lb) 09/23/2024 11:04 AM INSTITUTION DIRECTOR Height 182.9 cm (6') 09/23/2024 11:04 AM INSTITUTION DIRECTOR Body Mass Index 24.41 09/23/2024 11:04 AM INSTITUTION DIRECTOR Plan of Treatment Upcoming Encounters Date Type Department Care Team (Late st Contact Info) Description 12/01/2024 11:45 AM CDT Office Visit [facility] - General Surgery [facility] [address] [address] Karson Quintero MD [address] [place] [address] Yevgeniy Salinas MD #[address] [address] 12/09/2024 3:30 PM CDT [facility] [address] [place] [address] Karson Quintero MD [address] [place] [address] Discharge Disposition: Discharged to home or Selfcare 12/09/2024 4:00 PM CDT Clinical Support [facility] Oncology Services [address] [place] [address] Discharge Disposition: Discharged to home or Selfcare 12/23/2024 11:15 AM CDT Office Visit [facility] [address] [place] [address] Nik Franco MD [address], [facility] [address] [place] [address] Health Maintenance Due Date Last Done Comments Hepatitis C Virus (HCV) Screening 1955 TdaP Immunization 1957 Pneumococcal Immunization (50+ years) (1 of 2 - PCV) 1976 Zoster Immunization (1 of 2) 1976 Cologuard 2007 Immunochemical Fecal Occult Blood 2007 Lung Cancer Screening 2007 Respiratory Syncytial Virus (RSV) Immunization (Adult) (1 - Risk 60-74 years 1-dose series) 2017 SARS-COV-2 Immunization (3 - Moderna risk series) 01/12/2021 12/15/2020, 11/17/2020 AAA Screening Ultrasound 2022 Influenza Immunization (Season Ended) 2025 Colonoscopy 11/16/2033 11/17/2023 Colorectal Cancer Screening 11/16/2033 11/17/2023 PSA Discussion Completed 09/01/2024, 01/23, 10/14/2023, Additional [...] Procedure Name Priority Date/Time Associated Diagnosis Comments CULTURE, URINE Routine 09/23/2024 11:38 AM INSTITUTION DIRECTOR Recurrent UTI (urinary tract infection) POCT UA AUTOMATED W/O MICRO Routine 09/23/2024 11:25 AM INSTITUTION DIRECTOR Recurrent UTI (urinary tract infection) Prostate cancer (HCC) MARISOL,POST-VOID RES,US,NON-IMAGING Routine 09/23/2024 11:15 AM INSTITUTION DIRECTOR Recurrent UTI (urinary tract infection) Prostate cancer (HCC) [facility] DEXA BONE DENSITY W/VERTEBRA FX ASSESS Routine 09/20/2024 12:00 AM INSTITUTION DIRECTOR Prostate cancer (HCC) Androgen deprivation therapy PSA DIAGNOSTIC,TOTAL Routine 09/01/2024 12:00 AM INSTITUTION DIRECTOR HM COLONOSCOPY 11/17/2023 12:00 AM CDT from Last 3 Months or Most Recently Relevant to Health Maintenance Results * CULTURE, URINE (09/23/2024 11:38 AM INSTITUTION DIRECTOR) [facility] CULTURE RESULTS No growth final 09/24/2024 8:29 PM INSTITUTION DIRECTOR [facility] Culture URINE SPECIMEN COLLECTION, CLEAN CATCH / Unknown Non-Phlebotomy Collection / Unknown 09/23/2024 11:38 AM INSTITUTION DIRECTOR 09/23/2024 11:39 AM INSTITUTION DIRECTOR Nik Franco MD MICROBIOLOGY - GENERAL ORDERABLE S Final Result Performing Organization Address City/State/[facility] Co de Phone Number [facility] [address] [place] [address], * (ABNORMAL) POCT UA AUTOMATED W/O MICRO (09/23/2024 11:25 AM INSTITUTION DIRECTOR) Pathologist [facility] POC UA SPECIFIC GRAVITY 1.025 URINE PH 5.0 5.0 - 9.0 POC URINE LEUKOCYTES 500 /uL(A) Negative Nikunj/uL POC URINE NITRITE Negative Negative POC URINE PROTEIN 30 mg/dL(A) Negative mg/dL POC URINE GLUCOSE Norm Negative, Norm mg/dL POC URINE KETONE Negative Negative mg/dL POC URINE UROBILINOGEN Norm Norm, 0.2 E.U./dL (mg/dL), 1 E.U./dL (mg/dL) POC URINE BILIRUBIN Negative Negative mg/dL POC URINE BLOOD INSTRUMENT 50 Shahriar/uL(A) Negative Shahriar/uL POC URINE COLOR Yellow POC URINE CLARITY Clear Urine 09/23/2024 11:2 5 AM INSTITUTION DIRECTOR us Nik Franco MD POINT OF CARE TESTING (MANUAL) F inal Result * MARISOL,POST-VOID RES,US,NON-IMAGING (09/23/2024 11:15 AM INSTITUTION DIRECTOR) Narrative Cher Sloan, RMA - 09/23/2024 11:15 AM INSTITUTION DIRECTOR Cher Sloan A 09/23/2024 11:44 AM POCT Bladder Scan collected per standing order of Dr. Franco on 09/23/2024 PVR= 15 ML Nik Franco MD ID - SURGERY Final Result * [facility] DEXA BONE DENSITY W/VERTEBRA FX ASSESS (09/20/2024 12:00 AM INSTITUTION DIRECTOR) Anatomical Region Laterality Modality BODY N/A Other 09/20/2024 Dewayne Martínez MD IMG DEXA ORDERABLES Komal l Result * PSA DIAGNOSTIC,TOTAL (09/01/2024 12:00 AM INSTITUTION DIRECTOR) Prostatic Specific Antigen, Free 0.09 SCAN Blood Karson Quintero MD CHEMISTRY ORDERABLES Fi nal Result Performing Organization Address City/[facility] Co de Phone Number SCAN * COLONOSCOPY (11/17/2023 12:00 AM CDT) 11/17/2023 Provider Scan PROCEDURE/MINOR SURGICAL ORDERAB LES Final Result SCAN from Last 3 Months or Most Recently Relevant to Health Maintenance Insurance [place] Care Teams Printing Pressman Relationship Specialty Start Date End Date Patel Hartman MD [address] [place] [address] PCP - General Family Medicine 04/17/22 Helio Junior MD [address] [place] [address] Consulting Physician Urology 04/22/22 Karson Quintero MD [address] [place] [address] Consulting Physician Radiation Oncology 04/22/22 Vinayak Seth MD [address] [facility] [address] [place] [address] Consulting Physician Gastroenterology 12/16/23 Helio Youssef MD [address] [facility] DIV SURG COLON/RECTAL, [facility] [address] [address] Consulting Physician Colon and Rectal Surgery 12/17/23 Jabari Whaley MD #[address] [address] Consulting Physician Urology 03/16/24 Nik Franco MD [address] [facility] [address] [place] [address] Consulting Physician Urology 04/16/24 Yevgeniy Salinas MD [address]2 [facility] [address] [place] [address] Consulting Physician Colon and Rectal Surgery 09/08/24
== END 2024-11-30 11:05 | disposition home or self-care (01) ==
PROVIDERS: PCP Family Medicine; Visit Provider Radiology Radiation Oncology
DX: C61 Malignant neoplasm of prostate (principal); Z79.818 Long term (current) use of other agents affecting estrogen receptors and estrogen levels; Z92.3 Personal history of irradiation
CPT/HCPCS: 36415; 84153

== ENCOUNTER 2025-03-07 11:25 | Outpatient (CLI) | payer MEDICARE, MEDICAID, SELFPAY ==
--- OUTSIDE RECORDS SUMMARY | 2025-03-07 11:30 | XMS_ITS | Encounter Summary ---
Author Organization [facility] Address [address] [place] [address] Phone Care Team Providers Care Drivematic Machine Operator Name Role Phone Patel Hartman MD Primary Care Provider [phone] Helio Junior MD Unavailable [phone] Karson Quintero MD Unavailable [phone] Vinayak Seth MD Unavailable [phone] Helio Youssef MD Unavailable [phone] Jabari Whaley MD Unavailable [phone] Nik Franco MD Unavailable Yevgeniy Salinas MD Unavailable Reason for Visit * Reason Comments Medication Refill Encounter Details Date Type Department Care Team (Late st Contact Info) Description 08/27/2024 Refill [facility] Preop/Pacu II [address] [place] [address] Nik Franco MD #[address] [address] Medication Refill Social History Tobacco Use Types [...] Care Team (Late st Contact Info) Description 03/15/2025 3:30 PM CDT [facility] [address] [place] [address] [place] [address] [place] [address] Discharge Disposition: Discharged to home or Selfcare 03/15/2025 4:00 PM CDT Clinical Support [facility] Oncology Services [address] [place] [address] Karson Quintero MD 0 [place] [address] Discharge Disposition: Discharged to home or Selfcare 04/14/2025 10:45 AM CDT Office Visit [facility] #[address] [place] [address] Nik Franco MD #[address] [address] documented as of this encounter Visit Diagnoses Not on filedocumented in this encounter Care Teams Drivematic Machine Operator Relationship Specialty Start Date End Date Patel Hartman MD [address] [place] [address] PCP - General Family Medicine 04/17/22 Helio Junior MD [address] [place] [address] Consulting Physician Urology 04/22/22 12/09/24 Karson Quintero MD [address] [place] [address] Consulting Physician Radiation Oncology 04/22/22 Vinayak Seth MD [address] [place] [address] Consulting Physician Gastroenterology 12/16/23 Helio Youssef MD [address] [facility] DIV SURG COLON/RECTAL, [facility] [address] [address] Consulting Physician Colon and Rectal Surgery 12/17/23 12/09/24 Jabari Whaley MD #[address] [address] Consulting Physician Urology 03/16/24 Nik Franco MD #[address] [address] Consulting Physician Urology 04/16/24 Yevgeniy Salinas MD #[address] [address] Consulting Physician Colon and Rectal Surgery 09/08/24 documented as of this encounter
--- OUTSIDE RECORDS SUMMARY | 2025-03-07 11:30 | XMS_ITS | Encounter Summary ---
Author Organization [facility] Address [address] [place] [address] Phone Care Team Providers Care Socket Welder Helper Name Role Phone Patel Hartman MD Primary Care Provider [phone] Helio Junior MD Unavailable [phone] Karson Quintero MD Unavailable [phone] Vinayak Seth MD Unavailable [phone] Helio Youssef MD Unavailable [phone] Jabari Whaley MD Unavailable [phone] Nik Franco MD Unavailable Yevgeniy Salinas MD Unavailable Reason for Visit * Reason Comments Medication Refill Encounter Details Date Type Department Care Team (Late st Contact Info) Description 12/09/2024 Refill [facility] [address] [place] [address] Karson Quintero MD [address] [place] [address] Medication Refill Social History Tobacco Use Types [...] Description 03/15/2025 3:30 PM CDT Office Visit [facility] Oncology Services [address] [place] [address] Karson Quintero MD [address] [place] [address] Discharge Disposition: Discharged to home or Selfcare 03/15/2025 4:00 PM CDT Clinical Support [facility] Oncology Services [address] [place] [address] Karson Quintero MD [address] [place] [address] Discharge Disposition: Discharged to home or Selfcare 04/14/2025 10:45 AM CDT Office Visit [facility] #[address] [place] [address] Nik Franco MD #[address] [address] documented as of this encounter Visit Diagnoses Diagnosis Pelvic pain Unspecified symptom associated with female genital organs Rectal ulcer Ulcer of anus and rectum documented in this encounter Care Teams Socket Welder Helper Relationship Specialty Start Date End Date Patel Hartman MD [address] [place] [address] PCP - General Family Medicine 04/17/22 Helio Junior MD [address] [place] [address] Consulting Physician Urology 04/22/22 12/09/24 Karson Quintero MD [address] [place] [address] Consulting Physician Radiation Oncology 04/22/22 Vinayak Seth MD [address] [place] [address] Consulting Physician Gastroenterology 12/16/23 Helio Youssef MD [address] [facility] DIV SURG COLON/RECTAL, [facility] [address] [address] Consulting Physician Colon and Rectal Surgery 12/17/23 12/09/24 Jabari Whaley MD #[address] [place] [address] Consulting Physician Urology 03/16/24 Nik Franco MD #[address] [address] Consulting Physician Urology 04/16/24 Yevgeniy Salinas MD #2 [facility] [address] [place] [address] Consulting Physician Colon and Rectal Surgery 09/08/24 documented as of this encounter
--- OUTSIDE RECORDS SUMMARY | 2025-03-07 11:30 | XMS_ITS | Encounter Summary ---
Author Organization [facility] Address [address] [place] [address] Phone Care Team Providers Care Hospice Clinical Supervisor Name Role Phone Patel Hartman MD Primary Care Provider [phone] Helio Junior MD Unavailable [phone] Karson Quintero MD Unavailable [phone] Vinayak Seth MD Unavailable [phone] Helio Youssef MD Unavailable [phone] Jabari Whaley MD Unavailable [phone] Nik Franco MD Unavailable Yevgeniy Salinas MD Unavailable Reason for Visit * Reason Comments Medication Refill Encounter Details Date Type Department Care Team (Late st Contact Info) Description 12/09/2024 Refill [facility] Preop/Pacu II [address] [place] [address] Nik Franco MD #[address] [address] Medication Refill Social History Tobacco Use Types [...] Telephone Encounter - Nik Franco MD - 12/09/2024 4:22 PM CDT Urine culture was negative. No need for antibiotic at this time. * Telephone Encounter - Kathleen Garcia RN - 12/09/2024 1:41 PM CDT Medication failed the protocol, provider to review and approve the medication order if appropriate. Requested Prescriptions Pending Prescriptions Disp Refills sulfamethoxazole-trimethoprim (BACTRIM, SEPTRA) 400-80 MG Tablet [Pharmacy Med Name: SULFAMETHOXAZOLE-TMP SS TABLET] 45 Tablet 0 Sig: Take 1 Tablet by mouth daily for 45 days. There is no refill protocol information for this order documented in this encounter Plan of Treatment Upcoming Encounters Date Type Department Care Team (Late st Contact Info) Description 03/15/2025 3:30 PM CDT Office Visit [facility] Oncology Services [address] [place] [address] Karson Quintero MD [address] [place] [address] Discharge Disposition: Discharged to home or Selfcare 03/15/2025 4:00 PM CDT Clinical Support [facility] On[facility] Services [address] [place] [address] Karson Quintero MD [address] [place] [address] Discharge Disposition: Discharged to home or Selfcare 04/14/2025 10:45 AM CDT Office Visit [facility] [facility] #[address] [place] [phone] Nik Franco MD #[address] [address] documented as of this encounter Visit Diagnoses Not on filedocumented in this encounter Care Teams Hospice Clinical Supervisor Relationship Specialty Start Date End Date Patel Hartman MD [address] [place] [address] PCP - General Family Medicine 04/17/22 Helio Junior MD [address] [place] [address] Consulting Physician Urology 04/22/22 12/09/24 Karson Quintero MD [address] [place] [address] Consulting Physician Radiation Oncology 04/22/22 Vinayak Seth MD [address] [facility] [address] [place] [address] Consulting Physician Gastroenterology 12/16/23 Helio Youssef MD [address] [facility] DIV SURG COLON/RECTAL, [facility] [address] [place] [address] Consulting Physician Colon and Rectal Surgery 12/17/23 12/09/24 Jabari Whaley MD #[address] [address] Consulting Physician Urology 03/16/24 Nik Franco MD #2 [facility] [address] [place] [address] Consulting Physician Urology 04/16/24 Yevgeniy Salinas MD #[address] [facility] [address] [place] [address] Consulting Physician Colon and Rectal Surgery 09/08/24 documented as of this encounter
--- OUTSIDE RECORDS SUMMARY | 2025-03-07 11:30 | XMS_ITS ---
Author Organization [facility] Address [address] [place] [address] Phone Care Team Providers Care Early Childhood Director Name Role Phone Patel Hartman MD Primary Care Provider [phone] Karson Quintero MD Unavailable [phone] Vinayak Seth MD Unavailable + [phone] Jabari Whaley MD Unavailable [phone] Nik Franco MD Unavailable Yevgeniy Salinas MD Unavailable Active Problems Problem Noted Date Diagnosed Date Dysuria 12/09/2024 History of recurrent UTIs 12/09/2024 Pelvic pain 09/08/2024 Rectal ulcer 09/08/2024 Recurrent [...] Treatment Medications Current Day (Day 1, Cycle 13 - Planned for 01/26/2025) No medications scheduled. No medications schedul ed. [...] Planned [id number] 06/17/2022 - 07/29/2022 250 cGy / 7 ,000 cGy Reference Points Delivered PSVN_PRP [...]
--- OUTSIDE RECORDS SUMMARY | 2025-03-07 11:30 | XMS_ITS | Clinical Summary ---
Author Organization [facility] Address [address] [place] [address] Phone Care Team Providers Care Fire Equipment Inspector Helper Name Role Phone Patel Hartman MD Primary Care Provider [phone] Karson Quintero MD Unavailable [phone] Vinayak Seth MD Unavailable [phone] Jabari Whaley MD Unavailable [phone] Nik Franco MD Unavailable Yevgeniy Salinas MD Unavailable Allergies Active Allergy Reactions Criticality Noted Date Comments Fentanyl Vomiting 04/20/2024 Reaction: vomiting, Other-Environmental Allergen (Not Found In Search) Runny Nose 04/17/2022 Seasonal allergy Sucralfate Other (see Comments) 12/09/2024 Medications tamsulosin (FLOMAX) 0.4 MG CapsuleIndicat ions:Lower urinary tract symptoms (LUTS),Prostat e cancer (HCC) TAKE 1 CAPSULE BY MOUTH DAILY AFTER DINNER FOR URINARY FLOW 90 Capsule 3 4 Active diazePAM (VALIUM) 5 MG TabletIndicati ons:Pelvic pain,Rectal ulcer TAKE 1 TO 2 TABLETS BY MOUTH 3 TIMES A DAY NEEDED FOR PELVIC FLOOR PAIN 90 Tablet 5 Active diazePAM (VALIUM) 5 MG TabletIndicati ons:Pelvic pain,Rectal ulcer TAKE 1 TO 2 TABLETS BY MOUTH 3 TIMES A DAY NEEDED FOR PELVIC FLOOR PAIN 90 Tablet 5 02/09/20 25 Discontinued sulfamethoxazo le-trimethopri m DS (BACTRIM DS, SEPTRA DS) 800-160 MG Tablet Take 1 Tablet by mouth 2 times daily for 10 days. 20 Tablet 5 02/21/20 25 Active Problems Problem Noted Date Diagnosed Date [...] 04/26/2022 0 08/30/2022 Intermittent self-catheterization of bladder 07/01/2022 Encounter for monitoring and rogen deprivation therapy 07/01/2022 Encounter for radiotherapy 0 08/30/2022 Vitreous floaters of both eyes 07/29/2022 Acute radiation proctitis Adverse effect of radiation 08/30/2022 Encounters Date Type Department Care Team Description 03/03/2025 10:30 AM CDT Office Visit [facility] [address] [place] [address] Nik Franco MD UTI symptoms (Primary Dx) Discharge Disposition: Discharged to home or Selfcare 03/03/2025 Travel 02/10/2025 Results Follow-Up [facility] [address] [place] [address] Nik rFanco MD CULTURE, URINE 02/08/2025 [facility]ill [facility] [address] [place] [address] Karson Quintero MD Medication Refill 01/20/2025 10:15 AM CDT Procedure Visit [facility] [address] [place] [address] Nik Franco MD UTI symptoms (Primary Dx); Recurrent UTI (urinary tract infection) Discharge Disposition: Discharged to home or Selfcare 01/20/2025 Travel 01/13/2025 10:32 AM CDT - 01/13/2025 11:59 PM CDT Hospital En[facility] [address] [place] [phone] Nik Franco MD Discharge Disposition: Discharged to home or Selfcare 01/13/2025 Travel 01/04/[address] [facility] [address] [place] [phone] Karson Quintero MD Medication Refill 12/30/2024 Results Follow-Up [facility] [address] [place] [phone] Nik Franco MD CULTURE, URINE 12/23/2024 11:15 AM CDT Office Visit [facility] [address] [place] [phone] Nik Franco MD UTI symptoms (Primary Dx); Recurrent UTI (urinary tract infection); Prostate cancer (HCC); UTI due to Klebsiella species Discharge Disposition: Discharged to home or Selfcare 12/22/2024 11:00 AM CDT Office Visit [facility] [address] [phone] Yevgeniy Salinas MD Rectal ulcer (Primary Dx); Radiation proctitis; Anal fistula Discharge Disposition: Discharged to home or Selfcare 12/22/2024 10:45 AM CDT Clinical Support [facility] [address] [place] [phone] Nurse [place] [facility] UTI symptoms (Primary Dx) Discharge Disposition: Discharged to home or Selfcare 12/22/2024 Travel 12/11/[address] [facility] [address] [place] [phone] Karson Quintero MD 12/10/[address] [facility] [address] [place] [phone] Karson Quintero MD Results (Please see dictated note.); Care Management (Please see dictated note.) 12/09/2024 4:00 PM CDT Clinical Support [facility] Oncology Services [address] [place] [phone] Karson Quintero MD Prostate cancer (HCC) (Primary Dx); Dysuria; Recurrent UTI (urinary tract infection) Discharge Disposition: Discharged to home or Selfcare 12/09/2024 3:30 PM CDT Office Visit [facility] [address] [place] [phone] Karson Quintero MD Encounter for monitoring androgen deprivation therapy (Primary Dx); Prostate cancer (HCC); History of therapeutic radiation; Recurrent UTI (urinary tract infection); Dysuria; History of recurrent UTIs; Pelvic pain; Rectal ulcer; Chronic radiation proctitis; Adverse effect of radiation, sequela Discharge Disposition: Discharged to home or Selfcare 12/09/2024 Travel 12/09/2024 Refill [facility] Preop/Pacu II [address] [place] [address] Nik Franco MD Medication Refill 12/09/2024 Refill [facility] [address] [place] [phone] Karson Quintero MD Medication Refill from Last 3 Months Family History Medical History Relation Name Comments No Known Problems Brother Cancer Father Hypertension Father Prostate Cancer Father Did not from cancer.Had shot only as treatment. No Known Problems Maternal Grandfather No Known Problems Maternal Grandmother Hypertension Mother Pacemaker Mother No Known Problems Paternal Grandfather No Known Problems Paternal Grandmother No Known Problems Sister Relation Name Status Comments Brother Alive Father Maternal Grandfather Maternal Grandmother Mother Paternal Grandfather Paternal Grandmother Sister Alive Social History Tobacco Use Types [...] Sign Reading Time Taken Comments Blood Pressure 149/79 03/03/2025 10:34 AM CDT Pulse 77 03/03/2025 10:34 AM CDT Temperature 36.4 C (97.5 F) 12/22/2024 10:51 AM CDT Respiratory Rate 18 03/03/2025 10:34 AM CDT Oxygen Saturation 98% 03/03/2025 10:34 AM CDT Inhaled Oxygen Concentration - - Weight 95.3 kg (210 lb) 03/03/2025 10:34 AM CDT Height 182.9 cm (6') 03/03/2025 10:34 AM CDT Body Mass Index 28.48 03/03/2025 10:34 AM CDT Plan of Treatment Upcoming Encounters Date Type Department Care Team (Late st Contact Info) Description 03/15/2025 3:30 PM CDT Office [facility] [address] [place] [phone] Karson Quintero MD [address] [place] [address] Discharge Disposition: Discharged to home or Selfcare 03/15/2025 4:00 PM CDT Clinical Support [facility] [address] [place] [phone] Karson Quintero MD [address] [place] [address] Discharge Disposition: Discharged to home or Selfcare 04/14/2025 10:45 AM CDT Office Visit [facility] [address] [facility] [place] [place] [phone] Nik Franco MD [address] [address] Health Maintenance Due Date Last Done Comments Hepatitis C Virus (HCV) Screening 1955 Pneumococcal Immunization (50+ years) (1 of 2 - PCV) 1976 Zoster Immunization (1 of 2) 1976 Cologuard 2002 Immunochemical Fecal Occult Blood 2002 Lung Cancer Screening 2007 Respiratory Syncytial Virus (RSV) Immunization (Adult) (1 - Risk 60-74 years 1-dose series) 2017 SARS-COV-2 Immunization (3 - Moderna risk series) 01/12/2021 12/15/2020, 11/17/2020 AAA Screening Ultrasound 2022 Influenza Immunization (#1) 2025 Colonoscopy 11/16/2033 11/17/2023 Colorectal Cancer Screening 11/16/2033 PSA Discussion Completed 11/30/2024, 03/2025, 09/01/2024, Additional history exists DTaP/Tdap/Td Immunization Discontinued 02/11/2025 TdaP Immunization Completed 02/11/2025 Hepatitis B Immunization Aged Out No longer eligible based on patient's age to complete this topic Human Papillomavirus (HPV) Immunization Aged Out No longer eligible based on patient's age to complete this topic Meningococcal Immunization (ACWY) Aged Out No longer eligible based on patient's age to complete this topic Rotavirus Immunization Aged Out No lo nger eligible based on patient's age to complete this topic Procedures Procedure Name Priority Date/Time Associated Diagnosis Comments CULTURE, URINE Routine 03/03/2025 11:20 AM CDT UTI symptoms POCT UA AUTOMATED W/O MICRO Routine 03/03/2025 10:50 AM CDT UTI symptoms MARISOL,POST-VOID RES,US,NON-IMAGING Routine 03/03/2025 10:30 AM CDT UTI symptoms CULTURE, URINE Routine 01/20/2025 11:30 AM CDT UTI symptoms Recurrent UTI (urinary tract infection) POCT UA AUTOMATED W/O MICRO Routine 01/20/2025 10:26 AM CDT UTI symptoms Recurrent UTI (urinary tract infection) CYSTOURETHROSCOPY Routine 01/20/2025 10: 15 AM CDT Recurrent UTI (urinary tract infection) CT UROGRAPHY WO/W CONTRAST Routine 01/13/2025 11:25 AM CDT Recurrent UTI (urinary tract infection) POCT CREATININE Routine 01/13/2025 11:00 AM CDT POCT UA AUTOMATED W/O MICRO Routine 12/23/2024 11:07 AM CDT UTI symptoms Recurrent UTI (urinary tract infection) Prostate cancer (HCC) UTI due to Klebsiella species CULTURE, URINE Routine 12/22/2024 11:11 AM CDT UTI symptoms URINALYSIS REFLEX IF INDICATED BY ABNORMAL RESULTS Routine 12/09/2024 4:24 PM CDT Dysuria Recurrent UTI (urinary tract infection) CULTURE, URINE Routine 12/09/2024 4:24 PM CDT Dysuria Recurrent UTI (urinary tract infection) PSA DIAGNOSTIC,TOTAL Routine 11/30/2024 12:00 AM CDT Prostate cancer (HCC) Androgen deprivation therapy History of therapeutic radiation HM COLONOSCOPY 11/17/2023 12:00 AM CDT from Last 3 Months or Most Recently Relevant to Health Maintenance Results * (ABNORMAL) POCT UA AUTOMATED W/O MICRO (03/03/2025 10:50 AM CDT) Only the most recent of3 resultswithin the time period is included. POC UA SPECIFIC GRAVITY 1.020 URINE PH 5.0 5.0 - 9.0 POC URINE LEUKOCYTES 500 /uL(A) Negative Nikunj/uL POC URINE NITRITE Positive(A) Negative POC URINE PROTEIN 30 mg/dL(A) Negative mg/dL POC URINE GLUCOSE Norm Negative, Norm mg/dL POC URINE KETONE Negative Negative mg/dL POC URINE UROBILINOGEN Norm Norm, 0.2 E.U./dL (mg/dL), 1 E.U./dL (mg/dL) POC URINE BILIRUBIN Negative Negative mg/dL POC URINE BLOOD INSTRUMENT 250 Shahriar/uL(A) Negative Shahriar/uL POC URINE COLOR Ale POC URINE CLARITY Slt Cloudy Urine 03/03/2025 10:5 0 AM CDT us Nik Franco MD POINT OF CARE TESTING (MANUAL) F inal Result * MARISOL,POST-VOID RES,US,NON-IMAGING (03/03/2025 10:30 AM CDT) Narrative Shayna Smith - 03/03/2025 10:30 AM CDT Shayna Smith 03/03/2025 11:16 AM POCT Bladder Scan collected per standing order of Dr. Franco on 03/03/2025 PVR= 0 ML us Nik Franco MD [place] - SURGERY Final Result * CULTURE, URINE (01/20/2025 11:30 AM CDT) Only the most recent of3 resultswithin the time period is included. CULTURE RESULTS KLEBSIELLA PNEUMONIAE 01/23/2025 3:[address] [facility] CULTURE RESULTS ESCHERICHIA COLI 01/23/2025 3:[address] [facility] Culture (ASPIRATEU) Non-Phlebotomy Collection / Unknown 01/20/2025 11:30 AM CDT 01/20/2025 11:30 AM CDT Narrative Organism Antibiotic Method Susceptibility Klebsiella pneumoniae Ampicillin/sulbactam [facility] VITEK IIB 4 mcg/ml: Susceptible Klebsiella pneumoniae Cefazolin [facility] V[facility]K IIB <16 mcg/ml: Susceptible Klebsiella pneumoniae Cefepime [facility] V[facility]K IIB <=0.12 mcg/ml: Susceptible Klebsiella pneumoniae Ceftriaxone [facility] IIB <=0.25 mcg/ml: Susceptible Klebsiella pneumoniae Gentamicin [facility] IIB <=1 mcg/ml: Susceptible Klebsiella pneumoniae Levofloxacin [facility] IIB <=0.12 mcg/ml: Susceptible Klebsiella pneumoniae Meropenem [facility] IIB <=0.25 mcg/ml: Susceptible Klebsiella pneumoniae Nitrofurantoin [facility] V[facility]K IIB 64 mcg/ml: Intermediate Klebsiella pneumoniae Piperacillin/Tazobactam [facility] VIT EK IIB <=4 mcg/ml: Susceptible Klebsiella pneumoniae Trimeth/Sulfamethoxazole [facility] MT IIB <=20 mcg/ml: Susceptible Escherichia coli Ampicillin [facility] VITEK IIB 8 mcg/ml: Susceptible Escherichia coli Ampicillin/sulbactam [facility] V[facility]K IIB <=2 mcg/ml: Susceptible Escherichia coli Cefazolin [facility] V[facility]K IIB <16 mcg/ml: Susceptible Escherichia coli Cefepime [facility] V[facility]K IIB <=0.12 mcg/ml: Susceptible Escherichia coli Ceftriaxone [facility] V[facility]K IIB <=0.25 mcg/ml: Susceptible Escherichia coli Gentamicin [facility]K IIB <=1 mcg/ml: Susceptible Escherichia coli Levofloxacin [facility] IIB <=0.12 mcg/ml: Susceptible Escherichia coli Meropenem [facility] V[facility]K IIB <=0.25 mcg/ml: Susceptible Escherichia coli Nitrofurantoin [facility] IIB <=16 mcg/ml: Susceptible Escherichia coli Piperacillin/Tazobactam [facility]K II B <=4 mcg/ml: Susceptible Escherichia coli Trimeth/Sulfamethoxazole [facility] VITEK I IB <=20 mcg/ml: Susceptible us Nik Franco MD MICROBIOLOGY - GENERAL ORDERABLE S Final Result [facility] [address] [place] [address], * CYSTOURETHROSCOPY (01/20/2025 10:15 AM CDT) Narrative Nik Franco MD - 01/20/2025 10:15 AM CDT Nik Franco MD 01/20/2025 3:28 PM Office cystoscopy 01/20/2025 Genitalia were prepped and draped in a sterile fashion. Lidocaine jelly was used intraurethrally. Flexible cystourethroscopy was performed. The penile and bulbous urethra looked normal. The external sphincter was intact. Prostatic urethra was 2-3 cm long. There was mild BPH. There was fairly cloudy urine in the bladder. Once this was aspirated out and some irrigation was done, the bladder urothelium showed mild cystitis. Bladder was distended and floppy in appearance. Ureteral orifices were normal. No tumors or stones were seen. The cystoscope was removed. He tolerated the procedure well. us Nik Franco MD [place] - SURGERY Final Result * CT UROGRAPHY WO/W CONTRAST (01/13/2025 11:25 AM CDT) Anatomical Region Laterality Modality , Abdomen N/A Computed Tomogra phy 01/19/2025 5:25 PM CDT Impressions 01/19/2025 5:27 PM CDT IMPRESSION: 1. No nephroliths or evidence of obstructive uropathy. 2. Bosniak 1 left renal cyst. 3. Gallstone. 4. Diverticulosis with persistent mucosal thickening in portions of the sigmoid colon. 5. Sclerotic lesion again noted in T12 which may represent a chronic sclerotic osseous metastasis. Narrative 01/19/2025 5:27 PM CDT EXAM DESCRIPTION: CT UROGRAPHY WO/W CONTRAST REASON FOR STUDY: chronic bladder and UTI's x years. Hx prostate ca, htn TECHNIQUE: Precontrast images of the abdomen. Abdomen and pelvis images with intravenous and without oral contrast using helical scanning technique with dynamic intravenous contrast injection. Corticomedullary, nephrographic, excretory phase images were acquired. Reconstructed coronal and sagittal MPR images reviewed. All images stored on PACS. Automated exposure control was used as a dose optimization technique for this examination. CONTRAST TYPE/DOSE: 100mL of IOPAMIDOL 76 % IV SOLN injected via Intravenous COMPARISON: 05/11/2024 FINDINGS: URINARY TRACT: KIDNEYS: A 1.1 cm Bosniak 1 left renal cyst is noted. No calculi. Normal renal collecting systems. URETERS AND BLADDER: No hydroureter. The urinary bladder is almost completely decompressed with bladder mucosal thickening noted.. ABDOMEN/PELVIS: LOWER CHEST: No significant pulmonary abnormalities. No effusion. LIVER: Normal size. No identified cystic or solid masses. GALLBLADDER: There is a 1.2 cm stone in the gallbladder. No gallbladder wall thickening or pericholecystic fluid is seen. BILE DUCTS: No intrahepatic or extrahepatic ductal dilatation. SPLEEN: Normal size. No focal lesions. PANCREAS: No identified cystic or solid masses. No significant calcifications. No adjacent inflammation or peripancreatic fluid collections. Pancreatic duct not dilated. ADRENALS: Normal. GI: No dilated bowel loops. There is persistent mucosal thickening in portions of the sigmoid colon. Numerous diverticula are present in the descending and sigmoid colon without obvious evidence of diverticulitis.. PERITONEUM: No ascites or free air. RETROPERITONEUM: No mass or adenopathy. REPRODUCTIVE: The prostate gland is obscured by artifact from the hip prostheses. VASCULATURE: No abdominal aortic aneurysm. MUSCULOSKELETAL: There are bilateral hip prostheses which results in artifact and partially obscures the pelvic anatomy. An old healed left inferior pubic ramus fracture is seen. There is multilevel lumbar spondylosis. Lucencies are noted involving the superior and inferior endplates of L1. Again noted is a sclerotic lesion in T12 suggesting an osseous metastasis. OTHER: No other abnormality. THIS IS AN ELECTRONICALLY VERIFIED FINAL REPORT 01/19/2025 5:25 PM - Electronically signed by Jeramy Plaza M.D. BS: BS Report ID: [id number] Reading Location: [place] [address] Procedure Note Jeramy Plaza MD - 01/19/2025 EXAM DESCRIPTION: CT UROGRAPHY WO/W CONTRAST REASON FOR STUDY: chronic bladder and UTI's x years. Hx prostate ca, htn TECHNIQUE: Precontrast images of the abdomen. Abdomen and pelvis images with intravenous and without oral contrast using helical scanning technique with dynamic intravenous contrast injection. Corticomedullary, nephrographic, excretory phase images were acquired. Reconstructed coronal and sagittal MPR images reviewed. All images stored on PACS. Automated exposure control was used as a dose optimization technique for this examination. CONTRAST TYPE/DOSE: 100mL of IOPAMIDOL 76 % IV SOLN injected via Intravenous COMPARISON: 05/11/2024 FINDINGS: URINARY TRACT: KIDNEYS: A 1.1 cm Bosniak 1 left renal cyst is noted. No calculi. Normal renal collecting systems. URETERS AND BLADDER: No hydroureter. The urinary bladder is almost completely decompressed with bladder mucosal thickening noted.. ABDOMEN/PELVIS: LOWER CHEST: No significant pulmonary abnormalities. No effusion. LIVER: Normal size. No identified cystic or solid masses. GALLBLADDER: There is a 1.2 cm stone in the gallbladder. No gallbladder wall thickening or pericholecystic fluid is seen. BILE DUCTS: No intrahepatic or extrahepatic ductal dilatation. SPLEEN: Normal size. No focal lesions. PANCREAS: No identified cystic or solid masses. No significant calcifications. No adjacent inflammation or peripancreatic fluid collections. Pancreatic duct not dilated. ADRENALS: Normal. GI: No dilated bowel loops. There is persistent mucosal thickening in portions of the sigmoid colon. Numerous diverticula are present in the descending and sigmoid colon without obvious evidence of diverticulitis.. PERITONEUM: No ascites or free air. RETROPERITONEUM: No mass or adenopathy. REPRODUCTIVE: The prostate gland is obscured by artifact from the hip prostheses. VASCULATURE: No abdominal aortic aneurysm. MUSCULOSKELETAL: There are bilateral hip prostheses which results in artifact and partially obscures the pelvic anatomy. An old healed left inferior pubic ramus fracture is seen. There is multilevel lumbar spondylosis. Lucencies are noted involving the superior and inferior endplates of L1. Again noted is a sclerotic lesion in T12 suggesting an osseous metastasis. OTHER: No other abnormality. THIS IS AN ELECTRONICALLY VERIFIED FINAL REPORT 01/19/2025 5:25 PM - Electronically signed by Jeramy Plaza M.D. BS: BS Report ID: [id number] Reading Location: [id number] IMPRESSION: 1. No nephroliths or evidence of obstructive uropathy. 2. Bosniak 1 left renal cyst. 3. Gallstone. 4. Diverticulosis with persistent mucosal thickening in portions of the sigmoid colon. 5. Sclerotic lesion again noted in T12 which may represent a chronic sclerotic osseous metastasis. Nik Franco MD IMG CT ORDERABLES Final Result * POCT Creatinine (01/13/2025 11:00 AM CDT) CREATININE - POCT 0.9 0.6 - 1.3 mg/dL 01/13/2025 11:01 AM CDT [facility] Blood 01/13/2025 11:0 0 AM CDT 01/13/2025 11:01 AM CDT None Provider POINT OF CARE TESTING Final Resu lt [facility] [address] [place] [address] * (ABNORMAL) URINALYSIS REFLEX IF INDICATED BY ABNORMAL RESULTS (12/09/2024 4:24 PM CDT) SPECIFIC GRAVITY 1.020 1.003 - 1.030 12/09/2024 4:50 PM CDT [facility] URINE PH 6.0 5.0 - 9.0 12/09/2024 4:50 PM CDT [facility] WBC ESTERASE 500 /uL(A) Negative 12/09/2024 4:50 PM CDT [facility] NITRITE Positive(A) Negative 12/09/2024 4:50 PM CDT [facility] PROTEIN, RANDOM URINE 100 mg/dL(A) Negative 12/09/2024 4:50 PM CDT [facility] URINE GLUCOSE, QUAL Negative Negative 12/09/2024 4:50 PM CDT [facility] URINE KETONES Negative Negative 12/09/2024 4:50 PM CDT [facility] UROBILINOGEN Normal Normal mg/dL 12/09/2024 4:50 PM CDT [facility] URINE BLOOD 150 /uL(A) Negative shahriar/ul 12/09/2024 4:50 PM CDT [facility] URINALYSIS COLOR Yellow 12/09/2024 4:50 PM CDT [facility] URINALYSIS CLARITY Very Cloudy 12/09/2024 4:50 PM CDT [facility] WBC (Urine) Packed(A) Negative, 0-5 /hpf 12/09/2024 4:50 PM CDT [facility] URINE RBC'S 51-150(A) Negative, 0-2 /hpf 12/09/2024 4:50 PM CDT [facility] EPITHELIAL CELLS Occasional /lpf 12/09/2024 4:50 PM CDT [facility] BACTERIA, URINE Many(A) Negative /hpf 12/09/2024 4:50 PM CDT [facility] Urine URINE SPECIMEN OBTAINED BY CLEAN CATCH PROCEDURE / Unknown Non-Phlebotomy Collection / Unknown 12/09/2024 4:24 PM CDT 12/09/2024 4:24 PM CDT us Karson Quintero MD URINE ORDERABLES Final Result Performing Organization Address City/[facility]/ZIP Co de Phone Number [facility] [address] [place] [address] * PSA DIAGNOSTIC,TOTAL (11/30/2024 12:00 AM CDT) Prostatic Specific Antigen, Free 0.09 SCAN Blood us Karson Quintero MD CHEMISTRY ORDERABLES Fi nal Result Performing Organization Address City/[facility]/ZIP Co de Phone Number SCAN * COLONOSCOPY (11/17/2023 12:00 AM CDT) 11/17/2023 us Provider Scan PROCEDURE/MINOR SURGICAL ORDERAB LES Final Result Performing Organization Address City/State/[facility] Co de Phone Number SCAN from Last 3 Months or Most Recently Relevant to Health Maintenance Insurance Care Teams Fire Equipment Inspector Helper Relationship Specialty Start Date End Date Patel Hartman MD [address] [place] [address] PCP - General Family Medicine 04/17/22 Karson Quintero MD [address] [place] [address] Consulting Physician Radiation Oncology 04/22/22 Vinayak Seth MD [address] [place] [address] Consulting Physician Gastroenterology 12/16/23 Jabari Whaley MD [address]2 [facility] [address] [place] [address] Consulting Physician Urology 03/16/24 Nik Franco MD #2 [facility] [address] [place] [address] Consulting Physician Urology 04/16/24 Yevgeniy Salinas MD #2 [facility] [address] [place] [address] Consulting Physician Colon and Rectal Surgery 09/08/24
--- OUTSIDE RECORDS SUMMARY | 2025-03-07 11:30 | XMS_ITS | Encounter Summary ---
Author Organization [facility] Address [address] [place] [address] Phone Care Team Providers Care College Teacher Name Role Phone Patel Hartman MD Primary Care Provider [phone] Karson Quintero MD Unavailable [phone] Vinayak Seth MD Unavailable [phone] Jabari Whaley MD Unavailable [phone] Nik Franco MD Unavailable Yevgeniy Salinas MD Unavailable Encounter Details Date Type Department Care Team (Late st Contact Info) Description 02/10/2025 Results Follow-Up [facility] [place] [id number] Nik Franco MD #[address] [address] CULTURE, URINE Social History Tobacco Use Types Packs/Day Years [...] on file documented as of this encounter Progress Notes * Nik Franco MD - 02/10/2025 4:02 PM CDT Urine culture 01/20/2025 = Klebsiella and E coli. Plan: Bactrim DS BID x10 days. documented in this encounter Miscellaneous Notes * Telephone Encounter - Nik Franco MD - 02/10/2025 4:02 PM CDT Urine culture 01/20/2025 = Klebsiella and E coli. Plan: Bactrim DS BID x10 days. documented in this encounter Plan of Treatment Upcoming Encounters Date Type Department Care Team (Late st Contact Info) Description 03/15/2025 3:30 PM CDT [facility] Visit [facility] [address] [place] [address] Karson Quintero MD [address] [place] [address] Discharge Disposition: Discharged to home or Selfcare 03/15/2025 4:00 PM CDT Clinical Support [facility] [address] [place] [address] Karson Quintero MD [address] [place] [address] Discharge Disposition: Discharged to home or Selfcare 04/14/2025 10:45 AM CDT Office Visit [facility] #[address] [place] [phone] Nik Franco MD #[address] [address] documented as of this encounter Visit Diagnoses Not on filedocumented in this encounter Care Teams College Teacher Relationship Specialty Start Date End Date Patel Hartman MD [address] [place] [address] PCP - General Family Medicine 04/17/22 Karson Quintero MD [address] [place] [address] Consulting Physician Radiation Oncology 04/22/22 Vinayak Seth MD [address] [place] [address] Consulting Physician Gastroenterology 12/16/23 Jabari Whaley MD #[address] [address] Consulting Physician Urology 03/16/24 Nik Franco MD #2 [facility] [address] [place] [address] Consulting Physician Urology 04/16/24 Yevgeniy Salinas MD #2 [facility] [address] [place] [address] Consulting Physician Colon and Rectal Surgery 09/08/24 documented as of this encounter
--- OUTSIDE RECORDS SUMMARY | 2025-03-07 11:30 | XMS_ITS | Encounter Summary ---
Author Organization [facility] Address [address] 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 Name Role Phone Patel Hartman MD Primary Care Provider Helio Junior MD Unavailable [phone] Karson Quintero MD Unavailable [phone] Vinayak Seth MD Unavailable [phone] Helio Youssef MD Unavailable [phone] Jabari Whaley MD Unavailable [phone] Nik Franco MD Unavailable Yevgeniy Salinas MD Unavailable Reason for Visit * Reason Comments Medication Refill Encounter Details Date Type Department Care Team (Late st Contact Info) Description 07/25/2024 Refill [facility] Preop/Pacu II [address] [place] [address] Nik Franco MD #[address] [address] Medication Refill Social History Tobacco Use Types [...] Patient should have completed his antibiotic therapy. 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 documented in this encounter Plan of Treatment Upcoming Encounters Date Type Department Care Team (Late st Contact Info) Description 03/15/2025 3:30 PM CDT Office Visit [facility] [address] [place] [address] Karson Quintero MD [address] [place] [address] Discharge Disposition: Discharged to home or Selfcare 03/15/2025 4:00 PM CDT Clinical Support [facility] [address] [place] [address] Karson Quintero MD [address] [place] [address] Discharge Disposition: Discharged to home or Selfcare 04/14/2025 10:45 AM CDT Office Visit [facility] #[address] [place] [address] Nik Franco MD #[address] [address] documented as of this encounter Visit Diagnoses Not on filedocumented in this encounter Care Teams Aircraft Machinist Relationship Specialty Start Date End Date Patel Hartman MD [address] [place] [address] PCP - General Family Medicine 04/17/22 Helio Junior MD [address] [place] [address] Consulting Physician Urology 04/22/22 12/09/24 Karson Quintero MD [address] [place] [address] Consulting Physician Radiation Oncology 04/22/22 Vinayak Seth MD [address] [facility] [address] [place] [address] Consulting Physician Gastroenterology 12/16/23 Helio Youssef MD [address] [facility] DIV SURG COLON/RECTAL, [facility] [address] [place] [address] Consulting Physician Colon and Rectal Surgery 12/17/23 12/09/24 Jabari Whaley MD #[address] [address] Consulting Physician Urology 03/16/24 Nik Franco MD #2 [facility] [address] [place] [address] Consulting Physician Urology 04/16/24 Yevgeniy Salinas MD #2 [facility] [address] [place] [address] Consulting Physician Colon and Rectal Surgery 09/08/24 documented as of this encounter
--- OUTSIDE RECORDS SUMMARY | 2025-03-07 11:31 | XMS_ITS | Data Portability ---
Author Organization [place] [facility], Main Office Address [address] [place] [address] Assessment No assessment recorded. Plan of Treatment Reminders Order Date Submit Date Provider Last Modified By Organization Details Last Modified Time Details Appointments None record ed. Lab None record ed. Referral None record ed. Procedures None record ed. Surgeries None record ed. Imaging None record ed. Medication Orders None record ed. Patient TargetsNo targets recorded. Patient InstructionsNo instructions recorded. Reason for Referral None Reported. Results Created Date Observation Date Name Description Value Unit Range Abnormal Flag Note LastModifiedBy Organization Detail LastModifiedTime 04/16/20 22 04/16/2022 urina lysis , dipst ick Leukocytes (reference range: negative starla/ l) Large Not Available [facility] [address], [address], 04/16/2022 14:06:01 04/16/20 22 04/16/2022 urina lysis , dipst ick Nitrite (reference rage: negative mg/dl) positi ve Not Available Z_[facility] [address], [address], 04/16/2022 14:06:01 04/16/20 22 04/16/2022 urina lysis , dipst ick Urobilinogen (reference range: 0.2-1 mg/dl) 0.2 Not Available [facility], [address], 04/16/2022 14:06:01 04/16/20 22 04/16/2022 urina lysis , dipst ick Protein (reference range: negative mg/dl) 300 Not Available [address], [address], 04/16/2022 14:06:01 04/16/20 22 04/16/2022 urina lysis , dipst ick pH (reference range: 5-7) 6.0 Not Available [address], [address], 04/16/2022 14:06:01 04/16/20 22 04/16/2022 urina lysis , dipst ick Blood (reference range: negative Shahriar/ l) Large Not Available [address], [address], 04/16/2022 14:06:01 04/16/20 22 04/16/2022 urina lysis , dipst ick Specific [place] (reference range: 1.005-1.030) 1.030 Not Available [address], [address], 04/16/2022 14:06:01 04/16/20 22 04/16/2022 urina lysis , dipst ick Ketone (reference range: negative mg/dl) Negati ve Not Available [address], [address], 04/16/2022 14:06:01 04/16/20 22 04/16/2022 urina lysis , dipst ick Bilirubin (reference range: negative mg/dl) Negati ve Not Available [facility] [address], [address], 04/16/2022 14:06:01 04/16/20 22 04/16/2022 urina lysis , dipst ick Glucose (reference range: negative mg/dl) Negati ve Not Available [address], [address], 04/16/2022 14:06:01 04/16/20 22 04/16/2022 urina lysis , dipst ick Appearance Clear Not Available [address], [address], 04/16/2022 14:06:01 04/16/20 22 04/16/2022 urina lysis , dipst ick Color Brown Not Available [address], [address], 04/16/2022 14:06:01 04/30/20 22 04/30/2022 urina lysis , dipst ick Leukocytes (reference range: negative starla/ l) Trace Not Available [address], [address], 04/30/2022 14:47:08 04/30/20 22 04/30/2022 urina lysis , dipst ick Nitrite (reference rage: negative mg/dl) negati ve Not Available [address], [address], 04/30/2022 14:47:08 04/30/20 22 04/30/2022 urina lysis , dipst ick Urobilinogen (reference range: 0.2-1 mg/dl) 0.2 Not Available Z_hr[address], [address], 04/30/2022 14:47:08 04/30/20 22 04/30/2022 urina lysis , dipst ick Protein (reference range: negative mg/dl) 30 Not Available [address], [address], 04/30/2022 14:47:08 04/30/20 22 04/30/2022 urina lysis , dipst ick pH (reference range: 5-7) 7.0 Not Available Z_hr [address], [address], 04/30/2022 14:47:08 04/30/20 22 04/30/2022 urina lysis , dipst ick Blood (reference range: negative Shahriar/ l) Large Not Available [address], [address], 04/30/2022 14:47:08 04/30/20 22 04/30/2022 urina lysis , dipst ick Specific [place] (reference range: 1.005-1.030) 1.010 Not Available Z_[facility]_[address], [address], 04/30/2022 14:47:08 04/30/20 22 04/30/2022 urina lysis , dipst ick Ketone (reference range: negative mg/dl) Negati ve Not Available Z_[address], [address], 04/30/2022 14:47:08 04/30/20 22 04/30/2022 urina lysis , dipst ick Bilirubin (reference range: negative mg/dl) Negati ve Not Available [address], [address], [address], 04/30/2022 14:47:08 04/30/20 22 04/30/2022 urina lysis , dipst ick Glucose (reference range: negative mg/dl) Negati ve Not Available [address], [address], 04/30/2022 14:47:08 07/30/20 22 07/30/2022 urina lysis , dipst ick Leukocytes (reference range: negative starla/ l) Trace Not Available [address], [address], 07/30/2022 14:41:04 07/30/20 22 07/30/2022 urina lysis , dipst ick Nitrite (reference rage: negative mg/dl) positi ve Not Available [address], [address], 07/30/2022 14:41:04 07/30/20 22 07/30/2022 urina lysis , dipst ick Urobilinogen (reference range: 0.2-1 mg/dl) 0.2 Not Available [address], [address], 07/30/2022 14:41:04 07/30/20 22 07/30/2022 urina lysis , dipst ick Protein (reference range: negative mg/dl) Negati ve Not Available [address], [address], 07/30/2022 14:41:04 07/30/20 22 07/30/2022 urina lysis , dipst ick pH (reference range: 5-7) 6.0 Not Available [address], [address], 07/30/2022 14:41:04 07/30/20 22 07/30/2022 urina lysis , dipst ick Blood (reference range: negative Shahriar/ l) Non-He molyze d: Trace Not Available [address], [address], 07/30/2022 14:41:04 07/30/20 22 07/30/2022 urina lysis , dipst ick Specific [place] (reference range: 1.005-1.030) 1.025 Not Available [address], [address], 07/30/2022 14:41:04 07/30/20 22 07/30/2022 urina lysis , dipst ick Ketone (reference range: negative mg/dl) Negati ve Not Available [address], [address], 07/30/2022 14:41:04 07/30/20 22 07/30/2022 urina lysis , dipst ick Bilirubin (reference range: negative mg/dl) Negati ve Not Available [address], [address], 07/30/2022 14:41:04 07/30/20 22 07/30/2022 urina lysis , dipst ick Glucose (reference range: negative mg/dl) Negati ve Not Available _[facility] [address] [place] [address], [address] , [place], [address], 07/30/2022 14:41:04 07/30/20 22 07/30/2022 urina lysis , dipst ick Appearance Clear Not Available Z_[address], [place] [address], [place], [address], 07/30/2022 14:41:04 07/30/20 22 07/30/2022 urina lysis , dipst ick Color Yellow Not Available [address], [address], [address], 07/30/2022 14:41:04 03/26/20 22 03/26/2022 CT, abdom en + pelvi s, w/wo contr ast No observ ation record ed. MIGRATION. [facility] [address] [place], [address], 10/24/2022 01:00:13 03/28/20 22 03/28/2022 NM, bone scan, whole body No observ ation record ed. MIGRATION. [facility] [address] [place], [address], 10/24/2022 01:00:13 04/16/20 22 04/16/2022 US, bladd er No observ ation record ed. MIGRATION. Z_[address], [address], [address], 10/24/2022 01:00:13 07/30/20 22 07/30/2022 US, bladd er No observ ation record ed. [id number] [facility] [place] [address] [facility], [address], [place], [address], 10/24/2022 01:00:13 Result Notes None recorded. Problems Name Problem SNOMED Code Status Onset Date Resolution Date Notes Provider Name and Address Organization Details Recorded Time Urinary incontinence 202001032 Active 2021 Not Available [facility] 00:58:36 Malignant neoplasm of prostate 719328807 Active 2022 Helio Junior MD [address] [facility], [facility] [address], [place], [address] , [facility] 15:09:18 Problem Notes None recorded. Procedures Surgical History Date Name Laterality Status Provider Name and Address Organization Details Recorded Time operation on urethra completed Not Available [facility] 10/24/2022 00:57:22 Knee Surgery completed Not Available [facility] 10/24/[facility] 00:57:22 total replacement of hip completed Not Available [facility] 10/24/2022 00:57:22 dilation of urethra completed Not Available [facility] 10/24/2022 00:57:22 hip joint reconstruction completed Not Available [facility] 10/24/2022 00:57:22 Vasectomy completed Not Available [facility] 0 10/24/2022 00:57:22 Imaging Results None recorded. Procedure Notes None recorded. Medical Equipment None Reported. Allergies No known drug allergies Medications Name Sig Start Date Stop Date Status Note LastModified by Organization Details LastModified Time sucralfate 1 gram tablet TAKE 1 TABLET BY MOUTH THREE TIMES A DAY active Not Available Not Available No t Available warfarin 2.5 mg tablet 01/08 completed Not Available Not Available Not Available metronidazo le 500 mg tablet TAKE 1 TABLET BY MOUTH EVERY 8 HOURS active Not Available Not Available No t Available ciprofloxac in 250 mg tablet 12/11 completed Not Available Not Available Not Available ciprofloxac in 500 mg tablet TAKE 1 TABLET BY MOUTH EVERY 12 HOURS active Not Available Not Available No t Available hydrocortis one 2.5 % topical cream with perineal applicator APPLY A THIN LAYER TO AFFECTED AREA(S) BY TOPICAL ROUTE 2-4 TIMES A DAY active Not Available Not Available No t Available ceftriaxone 1 gram solution for injection Take 1 g by injection route. 01/15 completed Not Available Not Available Not Available tamsulosin 0.4 mg capsule TAKE 1 CAPSULE BY MOUTH DAILY AFTER DINNER FOR URINARY FLOW active Not Available Not Available No t Available lisinopril 10 mg tablet 12/25 completed Not Available Not Available Not Available warfarin 5 mg tablet 01/08 completed Not Available Not Available Not Available Xylocaine 20 mg/mL (2 %) injection solution Take 10 mL by injection route. 01/15 completed Not Available Not Available Not Available polyethylen e glycol 3350 17 gram/dose oral powder 12/25 completed Not Available Not Available Not Available levofloxaci n 500 mg tablet TAKE 1 TABLET BY MOUTH EVERY DAY active Not Available Not Available No t Available amoxicillin 875 mg-potassiu m clavulanate 125 mg tablet TAKE 1 TABLET BY MOUTH EVERY 12 HOURS active Not Available Not Available No t Available alfuzosin ER 10 mg tablet,exte nded release 24 hr Take 1 tablet every day by oral route at dinner. 04/09 completed Not Available Not Available Not Available hydrochloro thiazide 12.5 mg tablet 04/09 completed Not Available Not Available Not Available Vitals Date Recorded Heart rate Body temperature Body mass index (BMI) Body weight Oxygen saturation Oxygen saturation in Arterial blood by Pulse oximetry Systolic And Diastolic Provider Name and Address Organization Details Last Updated DateTime 3 69 /min 97.5 [degF] 28.5 kg/m2 81826.4 g 96 % 96 % 157/85 mm[Hg] Kathleen Gutierrez MA [facility] 3 14:51:51 Date Recorded Body height Provider Name an d Address Organization Details Last Updated DateTime 02/11/2023 182.88 cm HANK España [facility] 02/11/2023 14:48:01 Date Recorded Body mass index (BMI) Body height Oxygen saturation Oxygen saturation in Arterial blood by Pulse oximetry Body temperature Body weight Provider Name and Address Organization Details Last Updated DateTime 2 28.6 kg/m2 182.88 cm 98 % 98 % 98.2 [degF] 08161.9 9 g Not Available [facility] 3 00:58:19 Date Recorded Body mass index (BMI) Body height Oxygen saturation Oxygen saturation in Arterial blood by Pulse oximetry Heart rate Body temperature Body weight Systolic And Diastolic Provider Name and Address Organization Details Last Updated DateTime 2 28.6 kg/m2 182.88 cm 97 % 97 % 94 /min 98.2 [degF] 39859.9 9 g 109/90 mm[Hg] Not Available [facility] 3 00:58:18 Date Recorded Body mass index (BMI) Body height Oxygen saturation Oxygen saturation in Arterial blood by Pulse oximetry Body temperature Body weight Provider Name and Address Organization Details Last Updated DateTime 2 29 kg/m2 182.88 cm 96 % 96 % 98.6 [degF] 67773.7 7 g Not Available [facility] 3 00:58:19 Date Recorded Body mass index (BMI) Body height Oxygen saturation Oxygen saturation in Arterial blood by Pulse oximetry Heart rate Body temperature Body weight Provider Name and Address Organization Details Last Updated DateTime 2 29 kg/m2 182.88 cm 97 % 97 % 88 /min 98.2 [degF] 75860.7 7 g Not Available [facility] 3 00:58:19 Social History Question Answer Notes LastModified by Organizat ion Details LastModified Time Tobacco Smoking Status Former Smoker quit in 2018 Not Available [facility] 10/24/2022 00:57:11 What Is Your Level Of Caffeine Consumption? Moderate [id number] Information not available 10/24/2022 When Did You Quit Smoking? 1-5yearssince lastcigarette [id number] Information not available 10/24/2022 What Was The Date Of Your Most Recent Tobacco Screening? 02/11/2023 [email or web address] Information not available 02/11/2023 Have You Ever Been Counseled For Unhealthy Alcohol Use? No [id number] Information not available 10/24/2022 Has Tobacco Cessation Counseling Been Provided? No [id number] Information not available 10/24/2022 Sex: Unknown Functional Status Question Answer Note LastModified by Organizat ion Details LastModified Time Do you use any illicit or recreational drugs? No [id number] Information not available 10/24/2022 Do you or have you ever used any other forms of tobacco or nicotine? No [id number] Information not available 10/24/2022 What is your level of alcohol consumption? Moderate [id number] Information not available 10/24/2022 Mental Status None recorded. Family History Relationship Description Onset Age of this Age Resolved Age Notes LastModified by Organization Details LastModified Time Unspecified Relation Heart disease [id number] Not available 10/24/2022 00:57:24 Unspecified Relation Hypertensive disorder [id number] Not available 10/24/2022 00:57:24 Unspecified Relation Malignant neoplasm of prostate [id number] Not available 10/24/2022 00:57:24 Medical History Condition Response CYSTITIS N BLINDNESS N RHEUMATIC FEVER N KIDNEY STONES N BLADDER PROBLEMS N Enlarged Prostate N SLEEP APNEA N MRSA N INFECTIOUS DISEASE N LUNG DISEASE/DISORDER N HEART ARRHYTHMIA N PROSTATE N INSOMNIA N HISTORY OF DRUG ABUSE N RADIATION / CHEMOTHERAPY N COPD N HIGH CHOLESTEROL / HYPERLIPIDEMIA N HYPERTHYROIDISM N UTI N BLOOD DISEASES N EDEMA N HYPOTHYROIDISM N SHINGLES N BOWEL PROBLEMS N BACK / NECK PROBLEMS N DEPRESSION (INCLUDING POST ) Y HAVE YOU BEEN HOSPITALIZED OR SEEN IN [facility] IN THE PAST YEAR ? N STROKE/TIA N THYROID DISEASE N BENIGN PROSTATIC HYPERPLASIA N DIALYSIS N OBESITY N GERD/NAUSEA N ANEURYSM N OSTEOPOROSIS N URINARY/BLADDER/KIDNEY PROBLEMS N Increased Urination N CORONARY ARTERY DISEASE (CAD) N ARTHRITIS Y USE OF BLOOD THINNERS N NO SIGNIFICANT PAST MEDICAL HISTORY N DIABETES, TYPE N EMPHYSEMA N PARKINSON N GASTROINTESTINAL DISORDER N GASTROINTESTINAL BLEEDING N BLOOD CLOTS Y Difficulty Urinating N HEPATITIS / LIVER DISEASE N ASTHMA N CATARACTS N GOUT N SLEEP DISORDER N ALZHEIMER'S DISEASE N HERPES N ERECTILE DYSFUNCTION N SEIZURES/EPILEPSY N HEADACHES/MIGRAINES N GI PROBLEMS N PACEMAKER N Low Testosterone N HEART MURMUR N DIZZINESS N KIDNEY DISEASE N HEART DISEASE/HEART PROBLEMS N AIDS/HIV N MULTIPLE SCLEROSIS N LIVER DISEASE N MALE HYPOGONADISM N HYPERTENSION Y CANCER: SPECIFY N TOURETTE'S N BLOOD TRANSFUSION N ANEMIA/BLOOD DISORDER N ANESTHESIA COMPLICATIONS N ATRIAL FIBRILLATION N AUTOIMMUNE DISEASE N TUBERCULOSIS N GLAUCOMA N Past Encounters Encounter ID Performer Location Encounter Start Date Encounter Closed Date Diagnosis/Indication Diagnosis SNOMED-CT Code Diagnosis ICD10 Code Diagnosis Note [id number] MD RADHA Mcmanus [facility] [address] [place] [id number] 12/11/2021 00:00:00 12/11/2021 17:18:34 [id number] MD RADHA Mcmanus [facility] [address] [place] [id number] 1 12/25/2021 00:00:00 12/25/2021 15:09:24 [id number] MD RADHA Mcmanus [facility] [address] [place] [id number] 1 01/08/2022 00:00:00 01/08/2022 14:57:37 [id number] MD RADHA Mcmanus [facility] [address] [place] [id number] 1 01/15/2022 00:00:00 01/15/2022 15:46:29 [id number] MD RADHA Mcmanus [facility] [address] [place] [id number] 1 04/09/2022 00:00:00 04/10/2022 10:23:20 [id number] MD RADHA Mcmanus [facility] [address] [place] [id number] 1 04/16/2022 00:00:00 04/17/2022 16:42:42 [id number] MD RADHA Mcmanus [facility] [address] [place] [id number] 1 04/30/2022 00:00:00 04/30/2022 15:03:22 [id number] MD RADHA Mcmanus [facility] [address] [place] [id number] 1 07/30/2022 00:00:00 07/30/2022 14:56:36 [id number] MD RADHA Mcmanus [address] [place] [address] 02/11/2023 14:40:50 02/11/2023 15:10:20 Malignant neoplasm of prostate 140969273 C61 SP xrt on androgen ablation for high risk disease doing very well, no longer needs caths. Gets psa and meds from [facility]. Health Concerns Section Related Observation LastModified by Organization Detai ls LastModified Time None Recorded Concern Status LastModified by Organization Details LastModified Time None Recorded Advance Directives Directive None Recorded Payers Insurance Date Sequence Insurance Name Policy Number Policy Miguel Covered Member ID Miguel Member ID Guarantor Name 11/05/2023 1 [place] Malik Morales [id number] Malik Morales 11/06/2023 2 [place] [employer] Malik Morales [id number] Malik Morales Notes Date Note Type Note Provider Name and Address Organization Details Recorded Time 04/09/2022 text/html BPH (benign prostatic hyperplasia)Reported bypatient.Notes:Pt presents with about a month of incontinence, using depends and lower abdominal mass. He has also had constipation but the abd mass came first. No dysuria or hematuria, he drips when he tries to void. He had blood work 2 wks ago which showed normal Cr and psa of 20 . He is having swelling of left leg.01/15/22Pt tolerated bx finePath 2 of 6 cores 3+4, 4 of 6 3+3 with volume of 41cc psad .5NCCN high risk04/09/22Pt has some irritation from patterson. He is just coming back now due to lack of insurance for ct and bone scan. He had those and they showed blastic lesion in t spine but negative bone scan, no mets. Not Available [facility] 04/10/2022 10:23:20 04/16/2022 text/html BPH (benign prostatic hyperplasia)Reported bypatient.Notes:Pt presents with about a month of incontinence, using depends and lower abdominal mass. He has also had constipation but the abd mass came first. No dysuria or hematuria, he drips when he tries to void. He had blood work 2 wks ago which showed normal Cr and psa of 20 . He is having swelling of left leg.01/15/22Pt tolerated bx finePath 2 of 6 cores 3+4, 4 of 6 3+3 with volume of 41cc psad .5NCCN high risk04/09/22Pt has some irritation from [place]terson. He is just coming back now due to lack of insurance for ct and bone scan. He had those and they showed blastic lesion in t spine but negative bone scan, no mets.04/16/22Pt removed patterson this am, just went small amount. Seeing oncology tomorrow. Not Available [place] 04/17/2022 16:42:42 04/30/2022 text/html BPH (benign prostatic hyperplasia)Reported bypatient.Notes:Pt presents with about a month of incontinence, using depends and lower abdominal mass. He has also had constipation but the abd mass came first. No dysuria or hematuria, he drips when he tries to void. He had blood work 2 wks ago which showed normal Cr and psa of 20 . He is having swelling of left leg.01/15/22Pt tolerated bx finePath 2 of 6 cores 3+4, 4 of 6 3+3 with volume of 41cc psad .5NCCN high risk04/09/22 has some irritation from [place]terson. He is just coming back now due to lack of insurance for ct and bone scan. He had those and they showed blastic lesion in t spine but negative bone scan, no mets.04/16/22Pt removed patterson this am, just went small amount. Seeing oncology tomorrow.04/30/22Pt is doing ok on int cath, some blood at times but was not using caths correctly, showed again today. Saw xrt and started on lupron and going to get xrt. Not Available [place] 04/30/2022 15:03:22 07/30/2022 text/html BPH (benign prostatic hyperplasia)Reported bypatient.Notes:Pt presents with about a month of incontinence, using depends and lower abdominal mass. He has also had constipation but the abd mass came first. No dysuria or hematuria, he drips when he tries to void. He had blood work 2 wks ago which showed normal Cr and psa of 20 . He is having swelling of left leg. 04/09/22Pt has some irritation from patterson. He is just coming back now due to lack of insurance for04/16/22 removed patterson this am, just went small amount. Seeing oncology tomorrow.04/30/22 is doing ok on int cath, some blood at times but was not using caths correctly, showed again today. Saw xrt and started on lupron and going to get xrt.07/30/22PT is no longer cathing, stream is ok, no enuresis, some slowing but just started on flomax and doing better, some rectal frequency.Prostate CancerReported bypatient.Notes:01/15Pt tolerated bx finePath 2 of 6 cores 3+4, 4 of 6 3+3 with volume of 41cc psad .5NCCN high riskct and bone scan. He had those and they showed blastic lesion in t spine but negative bone scan, no mets.XRT and lupron at xrt in [place], finished xrt this week. Not Available [facility] 07/30/2022 14:56:36 02/11/2023 text/html BPH (benign prostatic hyperplasia)Pt presents with about a month of incontinence, using depends and lower abdominal mass. He has also had constipation but the abd mass came first. No dysuria or hematuria, he drips when he tries to void. He had blood work 2 wks ago which showed normal Cr and psa of 20 . He is having swelling of left leg.04/09/22Pt has some irritation from patterson. He is just coming back now due to lack of insurance for04/16/22 removed patterson this am, just went small amount. Seeing oncology tomorrow.04/30/22 is doing ok on int cath, some blood at times but was not using caths correctly, showed again today. Saw xrt and started on lupron and going to get xrt.07/30/22PT is no longer cathing, stream is ok, no enuresis, some slowing but just started on flomax and doing better, some rectal frequency.02/11/23Pt is doing fine, good stream , no incontinence, nocturia x2 Prostate Cancer01/15/22Pt tolerated bx finePath 2 of 6 cores 3+4, 4 of 6 3+3 with volume of 41cc psad .5NCCN high riskct and bone scan. He had those and they showed blastic lesion in t spine but negative bone scan, no mets.XRT and lupron at xrt in [place], finished xrt this week.02/11/23Finished xrt 08/15 on lupron, last psa was .06 in Sep, Has some hot flashes. Helio Junior MD [address] [place] [address], [facility] [address], [place], [address], [place] [facility] 02/11/2023 15:10:20
--- OUTSIDE RECORDS SUMMARY | 2025-03-07 11:31 | XMS_ITS | Encounter Summary ---
Author Organization [facility] Address [address] [place] [address] Phone Care Team Providers Care Flow Coordinator Name Role Phone Patel Hartman MD Primary Care Provider [phone] Helio Junior MD Unavailable [phone] Karson Quintero MD Unavailable [phone] Vinayak Seth MD Unavailable + [phone] Helio Youssef MD Unavailable [phone] Jabari Whaley MD Unavailable [phone] Nik Franco MD Unavailable Yevgeniy Salinas MD Unavailable Reason for Visit * Reason Comments Medication Refill Encounter Details Date Type Department Care Team (Late st Contact Info) Description 10/11/2024 Refill [facility] Preop/Pacu II 1 [place] [address] Nik Franco MD #[address] [address] Medication Refill Social History Tobacco Use Types [...] Description 03/15/2025 3:30 PM CDT [facility] [address] [place] [address] [place] [address] [place] [address] Discharge Disposition: Discharged to home or Selfcare 03/15/2025 4:00 PM CDT Clinical Support [facility] Oncology Services [address] [place] [address] Karson Quintero MD 0 [place] [address] Discharge Disposition: Discharged to home or Selfcare 04/14/2025 10:45 AM CDT Office Visit [facility] #2 [place] [address] Nik Franco MD #[address] [address] documented as of this encounter Visit Diagnoses Not on filedocumented in this encounter Care Teams Flow Coordinator Relationship Specialty Start Date End Date Patel Hartman MD [address] [place] [address] PCP - General Family Medicine 04/17/22 Helio Junior MD [address] [place] [address] Consulting Physician Urology 04/22/22 12/09/24 Karson Quintero MD [address] [place] [address] Consulting Physician Radiation Oncology 04/22/22 Vinayak Seth MD [address] [place] [address] Consulting Physician Gastroenterology 12/16/23 Helio Youssef MD 4921 [facility] DIV SURG COLON/RECTAL, [facility] [address] [address] Consulting Physician Colon and Rectal Surgery 12/17/23 12/09/24 Jabari Whaley MD #[address] [address] Consulting Physician Urology 03/16/24 Nik Franco MD #[address] [address] Consulting Physician Urology 04/16/24 Yevgeniy Salinas MD #[address] [address] Consulting Physician Colon and Rectal Surgery 09/08/24 documented as of this encounter
[2025-03-07 12:50] LABS: Prostate Specific Antigen < 0.1 ng/mL (< OR = 4.0)
== END 2025-03-07 11:26 | disposition home or self-care (01) ==
PROVIDERS: PCP Family Medicine; Visit Provider Radiology Radiation Oncology
DX: C61 Malignant neoplasm of prostate (principal)
CPT/HCPCS: 36415; 84153

== ENCOUNTER 2025-06-14 12:47 | Outpatient (CLI) | payer MEDICARE, MEDICAID, SELFPAY ==
[2025-06-14 14:15] LABS: Prostate Specific Antigen < 0.1 ng/mL (< OR = 4.0)
--- OUTSIDE RECORDS SUMMARY | 2025-06-14 15:36 | XMS_ITS | Encounter Summary ---
Author Organization [facility] Address [address] [place] [address] Phone Care Team Providers Care Fire Patrol Name Role Phone Patel Hartman MD Primary Care Provider [phone] Helio Junior MD Unavailable [phone] Karson Quintero MD Unavailable [phone] Vinayak Seth MD Unavailable + [phone] Helio Youssef MD Unavailable [phone] Jabari Whaley MD Unavailable [phone] Nik Franco MD Unavailable Yevgeniy Salinas MD Unavailable Reason for Visit * Reason Comments Medication Refill Encounter Details Date Type Department Care Team (Late st Contact Info) Description 12/09/2024 Refill [facility] Preop/Pacu II 1 [place] [address] Nik Fracno MD #[address] [address] Medication Refill Social History Tobacco Use Types [...] Care Team (Late st Contact Info) Description 06/28/2025 10:00 AM STRUCTURES TECHNICIAN Office Visit [facility] On[facility] Services [address] [place] [address] Karson Quintero MD 0 [place] [address] Discharge Disposition: Discharged to home or Selfcare 07/28/2025 10:45 AM STRUCTURES TECHNICIAN Office Visit [facility] #2 [place] [address] Nik Franco MD #[address] [address] documented as of this encounter Visit Diagnoses Not on filedocumented in this encounter Care Teams Fire Patrol Relationship Specialty Start Date End Date Patel Hartman MD [address] [place] [address] PCP - General Family Medicine 04/17/22 Helio Junior MD [address] [place] [address] Consulting Physician Urology 04/22/22 12/09/24 Karson Quintero MD [address] [place] [address] Consulting Physician Radiation Oncology 04/22/22 Vinayak Seth MD [address] [place] [address] Consulting Physician Gastroenterology 12/16/23 Helio Youssef MD 4921 [facility] DIV SURG COLON/RECTAL, [facility] [address] [place] [address] Consulting Physician Colon and Rectal Surgery 12/17/23 12/09/24 Jabari Whaley MD #[address] [address] Consulting Physician Urology 03/16/24 Nik Franco MD #2 [facility] [address] [place] [address] Consulting Physician Urology 04/16/24 Yevgeniy Salinas MD #2 [facility] [address] [place] [address] Consulting Physician Colon and Rectal Surgery 09/08/24 documented as of this encounter
--- OUTSIDE RECORDS SUMMARY | 2025-06-14 15:36 | XMS_ITS | Encounter Summary ---
Author Organization [facility] Address [address] [facility] [place] [address] Phone Care Team Providers Care Director Ehs Name Role Phone Patel Hartman MD Primary Care Provider [phone] Helio Junior MD Unavailable [phone] Karson Quintero MD Unavailable [phone] Vinayak Seth MD Unavailable + [phone] Helio Youssef MD Unavailable [phone] Jabari Whaley MD Unavailable [phone] Nik Franco MD Unavailable Yevgeniy Salinas MD Unavailable Reason for Visit * Reason Comments Medication Refill Encounter Details Date Type Department Care Team (Late st Contact Info) Description 12/09/2024 [facility] [address] [place] [address] Karson Quintero MD [address] [place] [address] Medication Refill Social History Tobacco [...] st Contact Info) Description 06/28/2025 10:00 AM AURIST [facility] [address] [place] [address] Karson Quintero MD [address] [place] [address] Discharge Disposition: Discharged to home or Selfcare 07/28/2025 10:45 AM AURIST Office Visit [facility] #2 [place] [address] Nik Franco MD #[address] [address] documented as of this encounter Visit Diagnoses Diagnosis Pelvic pain Unspecified symptom associated with female genital organs Rectal ulcer Ulcer of anus and rectum documented in this encounter Care Teams Director Ehs Relationship Specialty Start Date End Date Patel Hartman MD [address] [place] [address] PCP - General Family Medicine 04/17/22 Helio Junior MD [address] [place] [address] Consulting Physician Urology 04/22/22 12/09/24 Karson Quintero MD [address] [place] [address] Consulting Physician Radiation Oncology 04/22/22 Vinayak Seth MD [address] [facility] [address] [place] [address] Consulting Physician Gastroenterology 12/16/23 Helio Youssef MD 4921 [facility] DIV SURG COLON/RECTAL, [facility] [address] [address] Consulting Physician Colon and Rectal Surgery 12/17/23 12/09/24 Jabari Whaley MD #[address] [address] Consulting Physician Urology 03/16/24 Nik Franco MD #[address] [address] Consulting Physician Urology 04/16/24 Yevgeniy Salinas MD #[address] [address] Consulting Physician Colon and Rectal Surgery 09/08/24 documented as of this encounter
--- OUTSIDE RECORDS SUMMARY | 2025-06-14 15:36 | XMS_ITS | Encounter Summary ---
Author Organization [facility] Address [address] [place] [address] Phone Care Team Providers Care Plumbing And Heating Mechanic Name Role Phone Patel Hartman MD Primary Care Provider [phone] Helio Junior MD Unavailable [phone] Karson Quintero MD Unavailable [phone] Vinayak Seth MD Unavailable + [phone] Helio Youssef MD Unavailable [phone] Jabari Whaley MD Unavailable [phone] Nik Franco MD Unavailable Yevgeniy Salinas MD Unavailable Reason for Visit * Reason Comments Medication Refill Encounter Details Date Type Department Care Team (Late st Contact Info) Description 10/11/2024 Refill [facility] Preop/Pacu II 1 [place] [address] Nik Franco MD #[address] [address] Medication Refill Social History Tobacco Use Types [...] st Contact Info) Description 06/28/2025 10:00 AM APPLIED EXERCISE PHYSIOLOGIST Office Visit [facility] On[facility] Services [address] [place] [address] Karson Quintero MD [address] [place] [address] Discharge Disposition: Discharged to home or Selfcare 07/28/2025 10:45 AM APPLIED EXERCISE PHYSIOLOGIST Office Visit [facility] #2 [place] [address] Nik Franco MD #[address] [address] documented as of this encounter Visit Diagnoses Not on filedocumented in this encounter Care Teams Plumbing And Heating Mechanic Relationship Specialty Start Date End Date Patel Hartman MD [address] [place] [address] PCP - General Family Medicine 04/17/22 Helio Junior MD [address] [place] [address] Consulting Physician Urology 04/22/22 12/09/24 Karson Quintero MD [address] [place] [address] Consulting Physician Radiation Oncology 04/22/22 Vinayak Seth MD [address] [place] [address] Consulting Physician Gastroenterology 12/16/23 Helio Youssef MD 4921 [facility] DIV SURG COLON/RECTAL, [facility] [address] [address] Consulting Physician Colon and Rectal Surgery 12/17/23 12/09/24 Jabari Whalye MD #[address] [address] Consulting Physician Urology 03/16/24 Nik Franco MD #[address] [address] Consulting Physician Urology 04/16/24 Yevgeniy Salinas MD #[address] [address] Consulting Physician Colon and Rectal Surgery 09/08/24 documented as of this encounter
--- OUTSIDE RECORDS SUMMARY | 2025-06-14 15:36 | XMS_ITS | Clinical Summary ---
Author Organization [facility] Address #[address] [place] [address] Phone Care Team Providers Care Railroad Cook Name Role Phone Patel Hartman MD Primary Care Provider [phone] Karson Quintero MD Unavailable [phone] Vinayak Seth MD Unavailable [phone] Jabari Whaley MD Unavailable [phone] Nik Franco MD Unavailable Yevgeniy Salinas MD Unavailable Allergies Active Allergy Reactions Criticality Noted Date Comments Fentanyl Vomiting 04/20/2024 Reaction: vomiting, Other-Environmental Allergen (Not Found In Search) Runny Nose 04/17/2022 Seasonal allergy Sucralfate Other (see Comments) 12/09/2024 Medications tamsulosin (FLOMAX) 0.4 MG CapsuleIndicati ons:Lower urinary tract symptoms (LUTS),Prostate cancer TAKE 1 CAPSULE BY MOUTH DAILY AFTER DINNER FOR URINARY FLOW 90 Capsule 3 07/26/2024 Active Active Problems Problem Noted Date Diagnosed Date 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 History of hormone therapy Overview (03/29/2025): Long-term ADT initiated with leuprolide 22.5 mg injection 04/24/2022 and 11th and final leuprolide 22.5 mg injection 12/09/2024. Chronic radiation proctitis Resolved Problems Problem Noted Date Diagnosed Date Resolved Date History of hormone therapy 03/29/2025 0 03/29/2025 Dysuria 12/09/2024 03/29/2025 Pelvic pain 09/08/2024 03/29/2025 Rectal ulcer 09/08/2024 03/29/2025 Bladder outlet obstruction 04/26/2022 0 08/30/2022 Lower urinary tract symptoms (LUTS) 04/26/2022 03/29/2025 Intermittent self-catheterization of bladder 07/01/2022 Encounter for monitoring and rogen deprivation therapy 07/01/2022 Encounter for radiotherapy 0 08/30/2022 Vitreous floaters of both eyes 07/29/2022 Adverse effect of radiation 03/29/2025 Encounters Date Type Department Care Team Description 04/22/2025 [facility] 1 [place] [address] Nik Franco MD Medication Refill 04/14/2025 10:45 AM CDT Office Visit [facility] #2 [place] [address] Nik Franco MD UTI symptoms (Primary Dx); Recurrent UTI (urinary tract infection) Discharge Disposition: Discharged to home or Selfcare 04/14/2025 Travel 03/30/2025 [facility] [address] [place] [address] Karson Quintero MD 03/29/2025 9:00 AM CDT [facility] [address] [place] [address] Karson Quintero MD Prostate cancer (HCC) (Primary Dx); History of hormone therapy; History of therapeutic radiation; Chronic radiation proctitis; Adverse effect of radiation, sequela; Perianal fistula; Recurrent UTI (urinary tract infection); Lower urinary tract symptoms (LUTS); Bladder atony; Chronic anxiety Discharge Disposition: Discharged to home or Selfcare 03/29/2025 Travel 03/21/2025 [facility] [address] [place] [address] Karson Quintero MD 03/21/2025 [facility] [address] [place] [address] Karson Quintero MD 03/16/2025 Telephone [facility] On[facility] Services [address] [place] [address] Karson Quintero MD 03/15/2025 Refill [facility] [address] [place] [address] Karson Quintero MD Medication Refill 03/15/2025 Travel from Last 3 Months Family History [...] Sign Reading Time Taken Comments Blood Pressure 189/93 04/14/2025 10:31 AM CDT Pulse 69 04/14/2025 10:31 AM CDT Temperature 36.6 C (97.8 F) 03/29/2025 8:53 AM CDT Respiratory Rate 16 04/14/2025 10:31 AM CDT Oxygen Saturation 100% 04/14/2025 10:31 AM CDT Inhaled Oxygen Concentration - - Weight 98 kg (216 lb) 04/14/2025 10:31 AM CDT Height 182.9 cm (6') 04/14/2025 10:31 AM CDT Body Mass Index 29.29 04/14/2025 10:31 AM CDT Plan of Treatment Upcoming Encounters Date Type Department Care Team (Late st Contact Info) Description 06/28/2025 10:00 AM DELPHI PROGRAMMER Office Visit [facility] Oncology Services [address] [place] [address] Karson Quintero MD [address] [place] [address] Discharge Disposition: Discharged to home or Selfcare 07/28/2025 10:45 AM DELPHI PROGRAMMER Office Visit [facility] #2 [place] [address] Nik Franco MD #[address] [address] Health Maintenance Due Date Last Done Comments Hepatitis C Virus (HCV) Screening 1957 Pneumococcal Immunization (50+ years) (1 of 2 - PCV) 1976 Zoster Immunization (1 of 2) 1976 Cologuard 2002 Immunochemical Fecal Occult Blood 2002 Lung Cancer Screening 2007 Respiratory Syncytial Virus (RSV) Immunization (Adult) (1 - Risk 60-74 years 1-dose series) 2017 SARS-COV-2 Immunization (3 - Moderna risk series) 01/12/2021 12/15/2020, 12/15/2020, 11/17/2020, Additional history exists AAA Screening Ultrasound 2022 Medicare Initial AWV G0438 04/25/2023 Influenza Immunization (#1) 2025 Colonoscopy 11/16/2033 11/17/2023 Colorectal Cancer Screening 11/16/2033 DTaP/Tdap/Td Immunization Discontinued 02/11/2025 TdaP Immunization Completed 02/11/2025 PSA Discussion Completed 03/07/2025, 04/0 03/2025, 11/30/2024, Additional history exists Hepatitis B Immunization Aged [...] Procedure Name Priority Date/Time Associated Diagnosis Comments MARISOL,POST-VOID RES,US,NON-IMAGING Routine 04/14/2025 10:45 AM CDT UTI symptoms Recurrent UTI (urinary tract infection) POCT UA AUTOMATED W/O MICRO Routine 04/14/2025 10:32 AM CDT UTI symptoms Recurrent UTI (urinary tract infection) PSA DIAGNOSTIC,TOTAL Routine 03/07/2025 12:00 AM CDT Prostate cancer (HCC) HM COLONOSCOPY 11/17/2023 12:00 AM CDT from Last 3 Months or Most Recently Relevant to Health Maintenance Results * MARISOL,POST-VOID RES,US,NON-IMAGING (04/14/2025 10:45 AM CDT) Narrative Shayna Smith - 04/14/2025 10:45 AM CDT Shayna Smith 04/14/2025 2:29 PM POCT Bladder Scan collected per standing order of Dr. Franco on 04/14/2025 PVR= 129 ML us Nik Franco MD CO - SURGERY Final Result * POCT UA AUTOMATED W/O MICRO (04/14/2025 10:32 AM CDT) POC UA SPECIFIC GRAVITY 1.000 URINE PH 6.5 5.0 - 9.0 POC URINE LEUKOCYTES Negative Negative Nikunj/uL POC URINE NITRITE Negative Negative POC URINE PROTEIN Negative Negative mg/dL POC URINE GLUCOSE Norm Negative, Norm mg/dL POC URINE KETONE Negative Negative mg/dL POC URINE UROBILINOGEN Norm Norm, 0.2 E.U./dL (mg/dL), 1 E.U./dL (mg/dL) POC URINE BILIRUBIN Negative Negative mg/dL POC URINE BLOOD INSTRUMENT Negative Negative Shahriar/uL POC URINE COLOR Yellow POC URINE CLARITY Clear Urine 04/14/2025 10:3 2 AM CDT us Nik Franco MD POINT OF CARE TESTING (MANUAL) F inal Result * PSA DIAGNOSTIC,TOTAL (03/07/2025 12:00 AM CDT) Prostatic Specific Antigen, Free 0.09 SCAN Blood us Karson Quintero MD CHEMISTRY ORDERABLES Fi nal Result SCAN * COLONOSCOPY (11/17/2023 12:00 AM CDT) 11/17/2023 us Provider Scan PROCEDURE/MINOR SURGICAL ORDERAB LES Final Result SCAN from Last 3 Months or Most Recently Relevant to Health Maintenance Insurance MEDICARE Care Teams Railroad Cook Relationship Specialty Start Date End Date Patel Hartman MD [address] [place] [address] PCP - General Family Medicine 04/17/22 Karson Quintero MD [address] [place] [address] Consulting Physician Radiation Oncology 04/22/22 Vinayak Seth MD [address] [place] [address] Consulting Physician Gastroenterology 12/16/23 Jabari Whaley MD #2 [facility] [address] [place] [address] Consulting Physician Urology 03/16/24 Nik Franco MD #2 [facility] [address] [place] [address] Consulting Physician Urology 04/16/24 Yevgeniy Salinas MD #2 [facility] [address] [place] [address] Consulting Physician Colon and Rectal Surgery 09/08/24
--- OUTSIDE RECORDS SUMMARY | 2025-06-14 15:36 | XMS_ITS | Clinical Summary ---
Author Organization [facility] Address [address] [place] [address] Care Team Providers Care Waterworks Supervisor Name Role Phone Teena Feliciano NP Primary Care Provider [phone] Laith Tong MD Unavailable Allergies No known active allergies Medications docusate [...] Comments Blood Pressure 119/75 11/02/2015 2:40 PM MANAGER ICU Pulse - - Temperature - - Respiratory Rate - - Oxygen Saturation - - Inhaled Oxygen Concentration - - Weight 104.3 kg (230 lb) 11/02/2015 2:40 PM MANAGER ICU Height 182.9 cm (6') 11/02/2015 2:40 PM MANAGER ICU Body Mass Index 31.19 11/02/2015 2:40 PM MANAGER ICU Plan of Treatment Health Maintenance Due Date Last Done Comments Colorectal Cancer Screening Colonoscopy (10 Years) 1957 Hepatitis C 1975 DTaP, Tdap and Td Vaccines ( 1 - Tdap) 1976 Pneumococcal Vaccine: 50+ Ye ars (1 of 1 - PCV) 2007 Zoster Vaccines (1 of 2) 2007 COVID-19 Vaccine ( - 2023-2 5 season) 2025 Influenza Adult (#1) 2025 RSV Immunization or 60+ Years (1 - [...] age to complete this topic Care Teams Waterworks Supervisor Relationship Specialty Start Date End Date Teena Feliciano NP [address] [facility] [address] [place] [address] PCP - General NURSE PRACTITIONER 12/26/21 Laith Tong MD [address] [facility] [address] [address] Physician INTERVENTIONAL CARDIOLOGY 12/26/21
--- OUTSIDE RECORDS SUMMARY | 2025-06-14 15:36 | XMS_ITS | Encounter Summary ---
Author Organization [facility] Address [address] [place] [address] Phone Care Team Providers Care Concrete Form Setter Name Role Phone Patel Hartman MD Primary Care Provider [phone] Helio Junior MD Unavailable [phone] Karson Quintero MD Unavailable [phone] Vinayak Seth MD Unavailable [phone] Helio Youssef MD Unavailable [phone] Jabari Whaley MD Unavailable [phone] Nik Franco MD Unavailable Yevgeniy Salinas MD Unavailable Reason for Visit * Reason Comments Medication Refill Encounter Details Date Type Department Care Team (Late st Contact Info) Description 07/25/2024 Refill [facility] Preop/Pacu II 1 [place] [address] Nik Franco MD #[address] [address] Medication Refill Social History Tobacco Use Types [...] Patient should have completed his antibiotic therapy. [employer] SCHO[employer] NURSE * Telephone Encounter - Michaela Apodaca RN [...] no refill protocol information for this order [employer] S[employer] NURSE documented in this encounter Plan of Treatment Upcoming Encounters Date Type Department Care Team (Late st Contact Info) Description 06/28/2025 10:00 AM SUBSTITUTE SCHOOL NURSE Office Visit [facility] Oncology Services [address] [place] [address] Karson Quintero MD [address] [place] [address] Discharge Disposition: Discharged to home or Selfcare 07/28/2025 10:45 AM SUBSTITUTE SCHOOL NURSE Office Visit [facility] #2 [place] [address] Nik Franco MD #[address] [address] documented as of this encounter Visit Diagnoses Not on filedocumented in this encounter Care Teams Concrete Form Setter Relationship Specialty Start Date End Date Patel Hartman MD [address] [place] [address] PCP - General Family Medicine 04/17/22 Helio Junior MD [address] [place] [address] Consulting Physician Urology 04/22/22 12/09/24 Karson Quintero MD [address] [place] [address] Consulting Physician Radiation Oncology 04/22/22 Vinayak Seth MD [address] [place] [address] Consulting Physician Gastroenterology 12/16/23 Helio Youssef MD 4921 [facility] DIV SURG COLON/RECTAL, [facility] [address] [place] [address] Consulting Physician Colon and Rectal Surgery 12/17/23 12/09/24 Jabari Whaley MD #[address] [address] Consulting Physician Urology 03/16/24 Nik Franco MD #2 [facility] [address] [place] [address] Consulting Physician Urology 04/16/24 Yevgeniy Salinas MD #2 [facility] [address] [place] [address] Consulting Physician Colon and Rectal Surgery 09/08/24 documented as of this encounter
--- OUTSIDE RECORDS SUMMARY | 2025-06-14 15:36 | XMS_ITS | Encounter Summary ---
Author Organization [facility] Address [address] [place] [address] Phone Care Team Providers Care Configuration Management Specialist Name Role Phone Patel Hartman MD Primary Care Provider [phone] Helio Junior MD Unavailable [phone] Karson Quintero MD Unavailable [phone] Vinayak Seth MD Unavailable + [phone] Helio Youssef MD Unavailable [phone] Jabari Whaley MD Unavailable [phone] Nik Franco MD Unavailable Yevgeniy Salinas MD Unavailable Reason for Visit * Reason Comments Medication Refill Encounter Details Date Type Department Care Team (Late st Contact Info) Description 08/27/2024 Refill [facility] Preop/Pacu II 1 [place] [address] Nik Franco MD #[address] [address] Medication Refill Social History Tobacco Use Types [...] st Contact Info) Description 06/28/2025 10:00 AM COFFEE GRINDER Office Visit [facility] On[facility] Services [address] [place] [id number] Karson Quintero MD [address] [place] [address] Discharge Disposition: Discharged to home or Selfcare 07/28/2025 10:45 AM COFFEE GRINDER Office Visit [facility] [place] [id number] Nik Franco MD #[address] [address] documented as of this encounter Visit Diagnoses Not on filedocumented in this encounter Care Teams Configuration Management Specialist Relationship Specialty Start Date End Date Patel Hartman MD [address] [place] [address] PCP - General Family Medicine 04/17/22 Helio Junior MD [address] [place] [address] Consulting Physician Urology 04/22/22 12/09/24 Karson Quintero MD [address] [place] [address] Consulting Physician Radiation Oncology 04/22/22 Vinayak Seth MD [address] [place] [address] Consulting Physician Gastroenterology 12/16/23 Helio Youssef MD [address] [facility] DIV SURG COLON/RECTAL, [facility] [address] [address] Consulting Physician Colon and Rectal Surgery 12/17/23 12/09/24 Jabari Whaley MD #[address] [address] Consulting Physician Urology 03/16/24 Nik Franco MD #[address] [address] Consulting Physician Urology 04/16/24 Yevgeniy Salinas MD #[address] [address] Consulting Physician Colon and Rectal Surgery 09/08/24 documented as of this encounter
--- OUTSIDE RECORDS SUMMARY | 2025-06-14 15:36 | XMS_ITS ---
Author Organization [facility] Address [address] [place] [address] Phone Care Team Providers Care Brake Adjuster Name Role Phone Patel Hartman MD Primary Care Provider [phone] Karson Quintero MD Unavailable [phone] Vinayak Seth MD Unavailable [phone] Jabari Whaley MD Unavailable [phone] Nik Franco MD Unavailable Yevgeniy Salinas MD [...] 22.5 mg injection 12/09/2024. Chronic radiation proctitis Current Treatment and Therapy Plans SUPPORT - LEUPROLIDE* Plan Start Date:04/23/2022 Plan Provider:Karson Quintero MD Linked Problems Prostate cancer Treatment Medications Current Day (Day 1, Cycle 14 - Planned for 04/20/2025) No medications scheduled. No medications schedul ed. [...] (LUTS) 04/26/2022 03/29/2025 Intermittent self-catheterization of bladder 2 07/01/2022 Encounter for monitoring and rogen deprivation therapy 07/01/2022 Encounter for radiotherapy 0 08/30/2022 Vitreous floaters of both eyes 07/29/2022 Adverse effect of radiation 03/29/2025
--- OUTSIDE RECORDS SUMMARY | 2025-06-14 15:36 | XMS_ITS | Encounter Summary ---
Author Organization [facility] Address [address] [place] [address] Phone Care Team Providers Care Director Of Operations Home Health Name Role Phone Patel Hartman MD Primary Care Provider [phone] Karson Quintero MD Unavailable [phone] Vinayak Seth MD Unavailable [phone] Jabari Whaley MD Unavailable [phone] Nik Franco MD Unavailable Yevgeniy Salinas MD Unavailable Reason for Visit * Reason Comments Medication Refill Encounter Details Date Type Department Care Team (Late st Contact Info) Description 04/22/2025 Refill [facility] Preop/Pacu II [address] [place] [phone] Nik Franco MD #[address] [address] Medication Refill Social History Tobacco Use Types [...] Telephone Encounter - Nik Franco MD - 04/28/2025 9:51 AM CDT For now, we will avoid further antibiotic use. 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 Office Visit [facility] [address] [place] [phone] Karson Quintero MD [address] [place] [address] Discharge Disposition: Discharged to home or Selfcare 07/28/2025 10:45 AM CARD TAPE CONVERTER OPERATOR Office Visit [facility] [place] [address] Nik Franco MD [address] [address] documented as of this encounter Visit Diagnoses Not on filedocumented in this encounter Care Teams Director Of Operations Home Health Relationship Specialty Start Date End Date Patel Hartman MD [address] [place] [address] PCP - General Family Medicine 04/17/22 Karson Quintero MD [address] [place] [address] Consulting Physician Radiation Oncology 04/22/22 Vinayak Seth MD [address] [place] [address] Consulting Physician Gastroenterology 12/16/23 Jabari Whaley MD #[address] [address] Consulting Physician Urology 03/16/24 Nik Franco MD #2 [facility] [address] [place] [address] Consulting Physician Urology 04/16/24 Yevgeniy Salinas MD #2 [facility] [address] [place] [address] Consulting Physician Colon and Rectal Surgery 09/08/24 documented as of this encounter
[2025-06-21 01:08] LABS: Testosterone, Total, LC/MS 39 ng/dL (.)
== END 2025-06-14 12:48 | disposition home or self-care (01) ==
PROVIDERS: PCP Family Medicine; Visit Provider Radiology Radiation Oncology
DX: C61 Malignant neoplasm of prostate (principal); Z92.3 Personal history of irradiation; Z92.29 Personal history of other drug therapy
CPT/HCPCS: 36415; 84153; 84403